=== PATIENT | female | born 1950 | race Caucasian/White ===

== ENCOUNTER → 2021-06-01 | Outpatient (CLI) | payer SELFPAY | END | disposition home or self-care (01) | LOC: LAB SHORT 20:09 | DX: J02.9 Acute pharyngitis, unspecified (principal) | CPT/HCPCS: 87081 ==

== ENCOUNTER 2021-07-16 14:30 | Day surgery (SDC) | payer SELFPAY ==
[2021-07-16] MEDS ORDERED: Aspir 8181 MG PO (14:39)
[2021-07-16] MEDS ORDERED: ALBU90OI INH (14:39)
[2021-07-16] MEDS ORDERED: BREO ELLIPTA 11 EAC1 INH (14:42)
[2021-07-16] MEDS ORDERED: Tessalon200 MG PO (14:43)
[2021-07-16] MEDS ORDERED: Flonase 0.05% N16 GM (14:44)
[2021-07-16] MEDS ORDERED: HYDCHL25 PO (14:44)
[2021-07-16] MEDS ORDERED: METPRE4DP PO (14:44)
[2021-07-16] MEDS ORDERED: METO25ER PO (14:46)
[2021-07-16] MEDS ORDERED: POTA10T PO (14:47)
[2021-07-16] MEDS ORDERED: TIOT18 INH (15:02)
[2021-07-16] MEDS ORDERED: SUCR1 PO (15:18)
[2021-07-16] MEDS ORDERED: AZIT250 PO (15:22)
== END 2021-07-16 17:44 | disposition home or self-care (01) ==
LOC: ATC 14:30
DX: U07.1 COVID-19 (principal); F17.210 Nicotine dependence, cigarettes, uncomplicated; I10 Essential (primary) hypertension; J43.9 Emphysema, unspecified; K21.9 Gastro-esophageal reflux disease without esophagitis
CPT/HCPCS: Q0243

== ENCOUNTER 2021-09-23 04:05 | Inpatient (IN) | payer MEDICARE, OTHER ==
[~2021-09-23] VITALS: Ht 160 cm; Wt 73.3 kg
[~2021-09-23 04:05] MED LIST: ALBU90OI INH; AZIT250 PO; Aspir 8181 MG PO; BREO ELLIPTA 11 EAC1 INH; Flonase 0.05% N16 GM; HYDCHL25 PO; METO25ER PO; METPRE4DP PO; POTA10T PO; SUCR1 PO; TIOT18 INH; Tessalon200 MG PO
[2021-09-23 04:18] LABS: PO2 Arterial 448 mmHg (80-100); pH Blood Arterial 7.27 (7.35-7.45)
[2021-09-23 04:25] LABS: BASOPHILS ABSOLUTE AUTO 0.02 K/mm3 (0.00-0.23); BASOPHILS PERCENT AUTO 0 % (0-2); EOSINOPHILS PERCENT AUTO 0 % (0-6); Hematocrit 44.8 % (33.0-51.0); Hemoglobin 14.3 g/dL (11.5-16.0); IMMATURE GRAN ABSOLUTE AUTO 0.09 K/mm3 (0.00-0.10); IMMATURE GRAN PERCENT AUTO 1 % (0-1); LYMPHOCYTES ABSOLUTE AUTO 1.22 K/mm3 (0.84-5.20); LYMPHOCYTES PERCENT AUTO 10 % (21-46); MONOCYTES ABSOLUTE AUTO 0.84 K/mm3 (0.16-1.47); MONOCYTES PERCENT AUTO 7 % (4-13); Mean Corpuscular HGB 28.9 pg (26.0-34.0); Mean Corpuscular HGB Conc 31.9 g/dL (31.5-36.5); Mean Corpuscular Volume 91 fL (80-100); Mean Platelet Volume 9.5 fL (9.1-12.4); NEUTROPHILS ABSOLUTE AUTO 10.16 K/mm3 (1.96-9.15); NEUTROPHILS PERCENT AUTO 82 % (41-73); Platelet Count 261 K/mm3 (150-400); RDW Coefficient Variation 12.7 % (11.7-14.2); RDW Standard Deviation 41.7 fL (35.1-46.3); Red Blood Cell Count 4.94 M/mm3 (3.80-5.20); White Blood Cell Count 12.33 K/mm3 (4.00-11.30)
[2021-09-23 04:50] LABS: Alanine Aminotransfer (ALT/SGP 64 U/L (12-78); Albumin, Blood 3.6 g/dL (3.4-5.0); Albumin/Globulin Ratio 0.9 (0.8-1.8); Alk Phos 84 U/L (50-136); Anion Gap 8 mmol/L (6-16); Aspartate Aminotrans (AST/SGOT 105 U/L (12-37); Bilirubin, Total 0.5 mg/dL (0.1-1.0); Blood Urea Nitrogen 25 mg/dL (8-24); Bun/Creatinine Ratio 20.2 (12.0-20.0); CO2, Blood 27 mmol/L (21-32); Chloride, Blood 103 mmol/L (98-108); Creatinine, Blood 1.24 mg/dL (0.40-1.00); Glomerular Filtration Rate 43 (60-); Glucose, Blood 170 mg/dL (70-99); Potassium, Blood 3.8 mmol/L (3.5-5.5); Sodium, Blood 138 mmol/L (136-145); Total Protein, Blood 7.6 g/dL (6.4-8.2); Troponin I <0.015 ng/mL (0.000-0.040)
[2021-09-23 05:43] LABS: Source, Urine Clean Catch
[2021-09-23 05:45] LABS: Bilirubin, Urine Neg (Neg); Blood, Urine 3+ (Neg); Glucose Qualitative, Urine Neg (Neg); Ketones, Urine Neg (Neg); Leukocyte Esterase, Urine Neg (Neg); Nitrite, Urine Neg (Neg); Protein, Urine 3+ (Neg); Urobilinogen, Urine NORM (Normal)
[2021-09-23 05:48] LABS: Influenza A, PCR NEGATIVE (NEGATIVE); Influenza B, PCR NEGATIVE (NEGATIVE); Resp Syncytial Virus, PCR NEGATIVE (NEGATIVE); SARS-Cov-2 (COVID-19) PCR, MMC NEGATIVE (NEGATIVE)
[2021-09-23 05:51] LABS: Appearance, Urine Clear (Clear); Color, Urine Yellow (P-Yellow)
[2021-09-23 05:54] LABS: Bacteria Few /hpf; Squamous Epithelial Cells Few /hpf (Few); Transitional Epithelial Cells Few /hpf (0-Rare)
[2021-09-23 05:55] LABS: Renal Epithelial Rare /hpf (0-Rare)
[2021-09-23 05:56] LABS: Hyaline Casts 0-2 /lpf (0-2)
--- NOTE | 2021-09-23 08:30 | NUR ---
PT TO ICU ROOM 12. PT ARRIVED INTUBATED AND SEDATED. VENT SETTINGS AC 20/350/5/30%, PROPOFOL AT 15 MCG/KG/MIN, CARDIZEM GTT @5 MG/HR. PT AFLUTTER WITH HR 140-180'S. PT OPENS EYES SPONTANEOUS, WITHDRAWS FROM PAINFUL AND NOXIOUS STIMULATION, FAILS TO FOLLOW COMMANDS. LUNG SOUNDS WITH INSPIRATORY AND EXPIRATORY WHEEZES. SPUTUM SAMPLE SENT. SMALL AMOUNT OF THICK YELLOW SPUTUM FROM ETT. OGT INSERTED, LOCATION VERIFIED VIA XRAY. GOYAL PATENT AND DRAINING TO GRAVITY. SEE FULL ADMISSION ASSESSMENT.
--- NOTE | 2021-09-23 12:34 | NUR ---
PEEP INCREASED TO [address] HOLLOWAY. PT CURRENTLY NSR WITH HR 83-85, CARDIZEM GTT PLACED ON STANDBY. PT'S GRANDDAUGHTER (ELVIS) UPDATED WITH PTS STATUS AND PLAN OF CARE.
--- NOTE | 2021-09-23 17:22 | NUR ---
SHIFT SUMMARY PT REMAINS INTUBATED AND SEDATED, VENT SETTINGS AC 20/350/14/30% WITH SATS 97%. PROPOFOL @ 15-25 MCG/KG/MIN FOR SEDATION, PT EASILY AGITATED WITH NOXIOUS STIMULI BUT UNABLE TO TOLERATE INCREASE IN PROPOFOL D/T HYPOTENSION. FENTANYL ADDED ADJUNCT TO SEDATION WITH GOOD RESULT. PT GIVEN 1L BOLUS OF LR FOLLOWED BY START OF LR @ 100 MAINTENANCE FLUIDS. LUNG SOUNDS WITH INSPIRATORY/EXPIRATORY WHEEZE BILATERAL UPPER/LOWER LOBES, LUNGS CLEARED THIS AFTERNOON AND ARE CURRENT WHEEZY BILATERAL UPPER LOBES R>L WITH DIM BASES BILATERALLY. SMALL AMOUNT OF THICK YELLOW SPUTUM FROM ETT, SAMPLE SENT TO LAB. CARDIZEM GTT OFF SINCE NOON PT CONVERTED TO NSR WITH HR 70-80'S. PT'S GRANDDAUGHTER AT BEDSIDE THIS AFTERNOON, UPDATED WITH STATUS AND PLAN OF CARE. WILL REPORT TO ONCOMING NURSE.
--- NOTE | 2021-09-23 19:44 | NUR ---
ASSUMED CARE OF PT AT 1915. REPORT RECEIVED AT BEDSIDE. PT PRESENTS IN BED. INTUBATED. AC 20, Tv 350, PEEP 14, FIO2 30 PERCENT. SOMEWHAT FAIR TO POOR VENT TOLERANCE WHICH RESPONDS WELL TO 25 MCG'S FENTANYL. PT CURRENTLY RESTING AND TOLERANT OF VENT. WILL REVIEW CHART AND PLAN OF CARE FOR THIS PT.
--- NOTE | 2021-09-23 22:35 | NUR ---
PT REQUIRED TO HAVE PROPOFOL INCREASED TO 25 MCG'S/KG/MIN. PT AWAKENS QUICKLY WITH ANY STIMULI AND BEGINS TO FIGHT THE VENT. ADMINSITERED 25 MCG'S FENTANYL WITH GOOD RESULTS. PT CURRENTLY RESTING IN BED. WILL CONTINUE TO MONITOR.
--- NOTE | 2021-09-24 03:44 | NUR ---
PT HAS BEEN TOLERATING VENT BETTER WITH INCREASE IN PROPOFOL TO 35 MCG'S/KG/MIN. PT HAS MAINTAINED BLOOD PRESSURES WITH MAP > 60-65. PT IN NO APPARENT DISTRESS. FIO2 30 PERCENT.
[2021-09-24 05:05] LABS: BASOPHILS ABSOLUTE AUTO 0.01 K/mm3 (0.00-0.23); BASOPHILS PERCENT AUTO 0 % (0-2); EOSINOPHILS PERCENT AUTO 0 % (0-6); Hematocrit 39.4 % (33.0-51.0); Hemoglobin 12.8 g/dL (11.5-16.0); IMMATURE GRAN ABSOLUTE AUTO 0.04 K/mm3 (0.00-0.10); IMMATURE GRAN PERCENT AUTO 0 % (0-1); LYMPHOCYTES ABSOLUTE AUTO 0.25 K/mm3 (0.84-5.20); LYMPHOCYTES PERCENT AUTO 2 % (21-46); MONOCYTES ABSOLUTE AUTO 0.24 K/mm3 (0.16-1.47); MONOCYTES PERCENT AUTO 2 % (4-13); Mean Corpuscular HGB Conc 32.5 g/dL (31.5-36.5); Mean Corpuscular Volume 89 fL (80-100); Mean Platelet Volume 9.8 fL (9.1-12.4); NEUTROPHILS ABSOLUTE AUTO 10.22 K/mm3 (1.96-9.15); NEUTROPHILS PERCENT AUTO 95 % (41-73); Platelet Count 159 K/mm3 (150-400); RDW Coefficient Variation 12.7 % (11.7-14.2); RDW Standard Deviation 41.9 fL (35.1-46.3); Red Blood Cell Count 4.42 M/mm3 (3.80-5.20); White Blood Cell Count 10.76 K/mm3 (4.00-11.30)
[2021-09-24 05:18] LABS: PCO2 Arterial 42.3 mmHg (35-45); PO2 Arterial 71.7 mmHg (80-100)
--- NOTE | 2021-09-24 05:40 | NUR ---
HAVE BEEN ABLE TO TITRATE PROPOFOL TO 35 MCG'S/KG/MIN. PT HAS BEEN ABLE TO MAINTAIN BLOOD PRESSURES WITH MAP > 60. PT HAS BEEN ABLE TO TOLERATE VENT BETTER WITH IMPROVED SEDATION. HAVE MEDICATED PT WITH FENTANYL 25 MCG'S WITH VENT INTOLERANCE WITH GOOD RESULTS. WILL CONTINUE TO MONITOR PT, AND WILL REPORT OFF TO ONCOMING RN.
[2021-09-24 06:09] LABS: Albumin, Blood 3.1 g/dL (3.4-5.0); Bilirubin, Total 0.8 mg/dL (0.1-1.0); Bun/Creatinine Ratio 23.8 (12.0-20.0); Calcium, Blood 8.6 mg/dL (8.5-10.1); Creatinine, Blood 1.26 mg/dL (0.40-1.00); Globulin, Blood 3.2 g/dL (2.2-4.0); Magnesium, Blood 1.9 mg/dL (1.6-2.4); Phosphorus, Blood 3.3 mg/dL (2.5-4.9); Total Protein, Blood 6.3 g/dL (6.4-8.2)
--- NOTE | 2021-09-24 10:45 | NUR ---
DR SHEPARD SPOKE TO DR ATKINSON RE CARDIOLOGY CONSULT AND PT CONDITION. DR ATKINSON STATED HE WOULD SEE THE PT IN THE AM.
--- NOTE | 2021-09-24 12:15 | NUR ---
DR. ALEMAN AWARE OF PATIENT HIGH HEART RATE, REINICIATED THE CARDIZEM IV. DR. ALEMAN CURRENTLY TALKING TO PATIENT FAMILY (GRANDDAUGHTER) FOR UPDATES
--- NOTE | 2021-09-24 13:48 | NUR ---
TUBE FEEDS STARTED AT 1315 VITAL HP AT 10ML/HR
--- NOTE | 2021-09-24 22:28 | NUR ---
NOTIFIED DR SHEPARD OF EKG CHANGES
--- NOTE | 2021-09-24 22:38 | NUR ---
DR HSEPARD AT BEDSIDE
[2021-09-25 03:20] LABS: BASOPHILS ABSOLUTE AUTO 0.01 K/mm3 (0.00-0.23); BASOPHILS PERCENT AUTO 0 % (0-2); EOSINOPHILS PERCENT AUTO 0 % (0-6); Hematocrit 38.4 % (33.0-51.0); Hemoglobin 12.8 g/dL (11.5-16.0); IMMATURE GRAN ABSOLUTE AUTO 0.09 K/mm3 (0.00-0.10); IMMATURE GRAN PERCENT AUTO 1 % (0-1); LYMPHOCYTES ABSOLUTE AUTO 0.15 K/mm3 (0.84-5.20); LYMPHOCYTES PERCENT AUTO 1 % (21-46); MONOCYTES ABSOLUTE AUTO 0.39 K/mm3 (0.16-1.47); MONOCYTES PERCENT AUTO 3 % (4-13); Mean Corpuscular HGB 29.4 pg (26.0-34.0); Mean Corpuscular HGB Conc 33.3 g/dL (31.5-36.5); Mean Corpuscular Volume 88 fL (80-100); Mean Platelet Volume 9.8 fL (9.1-12.4); NEUTROPHILS ABSOLUTE AUTO 14.15 K/mm3 (1.96-9.15); NEUTROPHILS PERCENT AUTO 96 % (41-73); Platelet Count 194 K/mm3 (150-400); RDW Coefficient Variation 12.8 % (11.7-14.2); RDW Standard Deviation 41.6 fL (35.1-46.3); Red Blood Cell Count 4.36 M/mm3 (3.80-5.20); White Blood Cell Count 14.79 K/mm3 (4.00-11.30)
[2021-09-25 03:42] LABS: Albumin, Blood 2.6 g/dL (3.4-5.0); Anion Gap 6 mmol/L (6-16); Blood Urea Nitrogen 32 mg/dL (8-24); Bun/Creatinine Ratio 31.1 (12.0-20.0); CO2, Blood 27 mmol/L (21-32); Calcium, Blood 8.5 mg/dL (8.5-10.1); Chloride, Blood 105 mmol/L (98-108); Creatinine, Blood 1.03 mg/dL (0.40-1.00); Glomerular Filtration Rate 53 (60-); Glucose, Blood 201 mg/dL (70-99); Phosphorus, Blood 2.5 mg/dL (2.5-4.9); Potassium, Blood 3.4 mmol/L (3.5-5.5); Sodium, Blood 138 mmol/L (136-145)
--- NOTE | 2021-09-25 06:40 | NUR ---
SHIFT SUMMERY PT FOUND WITH EKG CHANGES OVERNIGHT. DR SHEPARD NOTIFIED AND CAME TO BEDSIDE FOR PT EVALUATION. CARDIOLOGY CONSULTED, DR SHEPARD SPOKE WITH DR ATKINSON REGARDING PT. DR ATKINSON STATED HE WOULD SEE PT THIS MORNING. TROPONINS DRAWN TO TREND BUT ARE DECREASING. LEVOPHED HAS BEEN OFF SINCE 3AM, WITH PT MAINTAINING MAPS <65. NO ACUTE DISTRESS NOTED THIS SHIFT.
--- NOTE | 2021-09-25 18:34 | NUR ---
PT STABLE, REMAINS INTUBATED AND SEDATED. NO CHANGES ON THE VENTILATOR. PT WAS BATHE, LINENS CHANGED AND PROVIDED SKIN CARE. UPDATED FAMILY PT WAS ABLE TO REMAIN OFF RESTRAINTS THROUGHTOUT THE SHIFT.
--- NOTE | 2021-09-25 19:00 | NUR ---
ASSUMED CARE ASSUMED CARE OF PATIENT. REMAINS INTUBATED- AC/VCA 20/350/PEEP 14/ FIO2 30%. RR 20. SEDATED WITH PROPOFOL AT 30MCG/KG/MIN AND VERSED GTT AT 4MG/HR. MONITOR SHOWS NSR, RATE 70s. OCCASIONAL PVCs NOTED. BP STABLE. OG WITH VITAL HIGH PROTEIN AT GOAL RATE OF 20CC/HR. 30CC H20 FLUSHES Q4H. GOYAL PATENT AND DRAINING TO GRAVITY. LR INFUSING AT 75CC/HR PER ORDER. SEE SHIFT ASSESSMENT FOR FULL ASSESSMENT.
[2021-09-26 05:03] LABS: BASOPHILS ABSOLUTE AUTO 0.01 K/mm3 (0.00-0.23); BASOPHILS PERCENT AUTO 0 % (0-2); EOSINOPHILS PERCENT AUTO 0 % (0-6); Hematocrit 37.2 % (33.0-51.0); IMMATURE GRAN ABSOLUTE AUTO 0.07 K/mm3 (0.00-0.10); IMMATURE GRAN PERCENT AUTO 1 % (0-1); LYMPHOCYTES ABSOLUTE AUTO 0.17 K/mm3 (0.84-5.20); LYMPHOCYTES PERCENT AUTO 2 % (21-46); MONOCYTES PERCENT AUTO 2 % (4-13); Mean Corpuscular HGB 28.8 pg (26.0-34.0); Mean Corpuscular HGB Conc 32.3 g/dL (31.5-36.5); Mean Corpuscular Volume 89 fL (80-100); Mean Platelet Volume 10.2 fL (9.1-12.4); NEUTROPHILS ABSOLUTE AUTO 8.48 K/mm3 (1.96-9.15); NEUTROPHILS PERCENT AUTO 95 % (41-73); Platelet Count 131 K/mm3 (150-400); RDW Coefficient Variation 12.9 % (11.7-14.2); RDW Standard Deviation 42.5 fL (35.1-46.3); Red Blood Cell Count 4.17 M/mm3 (3.80-5.20); White Blood Cell Count 8.93 K/mm3 (4.00-11.30)
[2021-09-26 05:11] LABS: Albumin, Blood 2.4 g/dL (3.4-5.0); Anion Gap 6 mmol/L (6-16); Blood Urea Nitrogen 37 mg/dL (8-24); Bun/Creatinine Ratio 37.9 (12.0-20.0); CO2, Blood 30 mmol/L (21-32); Calcium, Blood 8.4 mg/dL (8.5-10.1); Chloride, Blood 104 mmol/L (98-108); Creatinine, Blood 0.98 mg/dL (0.40-1.00); Glomerular Filtration Rate 56 (60-); Glucose, Blood 183 mg/dL (70-99); Potassium, Blood 3.8 mmol/L (3.5-5.5); Sodium, Blood 140 mmol/L (136-145)
--- NOTE | 2021-09-26 05:56 | NUR ---
SHIFT SUMMARY NO ACUTE CHANGES DURING SHIFT. REMAINS INTUBATED- VENT SETTINGS STILL AC/VCA 20/350/PEEP 14/FIO2 30%. RR 20-23. SEDATED WITH PROPOFOL BETWEEN 25-35MCG/KG/MIN- NOW INFUSING AT 25MCG/KG/MIN. VERSED OFF AT THIS TIME. NO SPONTANEOUS MOVEMENT NOTED. CONTINUES TO WITHDRAW TO NOXIOUS STIMULI. AND CONTINUES WITH MINIMAL COUGH/GAG. ANNABELLE, 3-4MM. VSS. HR 70s-90s, NSR WITH OCCASIONAL PVCs. AFEBRILE. OG WITH VITAL HIGH PROTEIN AT GOAL RATE OF 20CC/HR. 30CC H20 FLUSHES Q4H. RESIDUALS <10CC T/O NOC. GOYAL PATENT AND DRAINING TO GRAVITY. LR CONTINUES AT 75CC/HR PER ORDER. WILL REPORT TO ONCOMING RN WHEN AVAILABLE.
--- NOTE | 2021-09-26 17:27 | NUR ---
PT REMAINS INTUBATED AND SEDATED WITH PROPOFOL AT 35MCG. NEW VENTILATOR SETTING, PEEP AT 5, NO DISTRESS. FAMILY UODATED URINE OUTPUT 500
--- NOTE | 2021-09-26 19:30 | NUR ---
ASSUMPTION OF CARE: REPORT GIVEN BY CARLOS RUBY. PT INTUBATED W/ETT INTACT AND PATENT TO VENT W/SETTINGS OF 30% FIO2, PEEP DECREASED TO 5 TODAY WITH PT TOLERATING WELL AT THIS TIME, RR OF 20. CARDIZEM GTT INFUSING AT 15/PROPOFOL AT 35. LUNG SOUNDS WITH WHEEZING ACROSS ALL LUNG MADISON. HR IRREGULAR BIT CONTROLLED AT TIME OF ASSESSMENT. GOYAL CATH INTACT PATENT AND DRAINING YELLOW URINE AT TIME OF ASSESSMENT. NO ACUTE S/S OF DISTRESS NOTED AT THIS TIME.
[2021-09-27 03:40] LABS: BASOPHILS PERCENT AUTO 0 % (0-2); EOSINOPHILS PERCENT AUTO 0 % (0-6); Hematocrit 36.5 % (33.0-51.0); Hemoglobin 11.6 g/dL (11.5-16.0); IMMATURE GRAN ABSOLUTE AUTO 0.09 K/mm3 (0.00-0.10); IMMATURE GRAN PERCENT AUTO 1 % (0-1); LYMPHOCYTES ABSOLUTE AUTO 0.22 K/mm3 (0.84-5.20); LYMPHOCYTES PERCENT AUTO 3 % (21-46); MONOCYTES ABSOLUTE AUTO 0.21 K/mm3 (0.16-1.47); MONOCYTES PERCENT AUTO 2 % (4-13); Mean Corpuscular HGB 28.6 pg (26.0-34.0); Mean Corpuscular HGB Conc 31.8 g/dL (31.5-36.5); Mean Corpuscular Volume 90 fL (80-100); Mean Platelet Volume 9.8 fL (9.1-12.4); NEUTROPHILS ABSOLUTE AUTO 8.27 K/mm3 (1.96-9.15); NEUTROPHILS PERCENT AUTO 94 % (41-73); Platelet Count 150 K/mm3 (150-400); RDW Coefficient Variation 12.9 % (11.7-14.2); RDW Standard Deviation 42.6 fL (35.1-46.3); Red Blood Cell Count 4.06 M/mm3 (3.80-5.20); White Blood Cell Count 8.79 K/mm3 (4.00-11.30)
[2021-09-27 04:02] LABS: Anion Gap 4 mmol/L (6-16); Blood Urea Nitrogen 46 mg/dL (8-24); Bun/Creatinine Ratio 46.7 (12.0-20.0); CO2, Blood 30 mmol/L (21-32); Calcium, Blood 8.2 mg/dL (8.5-10.1); Chloride, Blood 105 mmol/L (98-108); Creatinine, Blood 0.99 mg/dL (0.40-1.00); Glomerular Filtration Rate 55 (60-); Glucose, Blood 190 mg/dL (70-99); Phosphorus, Blood 2.9 mg/dL (2.5-4.9); Potassium, Blood 4.4 mmol/L (3.5-5.5); Sodium, Blood 139 mmol/L (136-145)
--- NOTE | 2021-09-27 06:33 | NUR ---
SHIFT SUMMERY NO ACUTE CHANGES OVERNIGHT
--- NOTE | 2021-09-27 18:20 | NUR ---
PT REMAINS INTUBATED AND SEDATED WITH PROPOFOL AT 15MCG AND PRECEDEX 1.[address] RUBIO CONTINUE WEAN OFF PROPOFOL IN ORDER TO STAY JUST WITH PRECEDEX. PER DR. RUBIO REQUESTED SEDATION VACATION BUT PATIENT DIDNT TOLERATE AND WAS PLACED AGAIN ON PROPOFOL
--- NOTE | 2021-09-27 19:40 | NUR ---
ASSESSMENT/ASSUMED CARE PT INTUBATED AND ON [facility] VENT. SEDATED WITH PROPOFOL AND PRECEDEX. LUNGS CLEAR BUT DECREASED THROUGHOUT. VENT SETTINGS AC/VC 20/350/5/30%. RT SUCTIONED SMALL AMT WHITE SERECTIONS VIA ET TUBE. HEART RATE IRREGULAR-AFIB/AFLUTTER. BP STABLE. IV 20G TO RIGHT FOREARM AND POWER GLIDE TO LEFT UPPER ARM, SITES CLEAR. GOYAL CATH PATENT DRAINING CLEAR YELLOW URINE. BT+ ABD SOFT. OG WITH TUBE FEED VITAL HP AT GOAL RATE OF 20 ML/HR, WATER 30 ML Q4HR. RESIDUAL ZERO. PT NONRESPONSIVE EXCEPT TO PAINFUL STIMULI. REPOSITIONED AND ORAL CARE DONE. INCONT SMALL BROWN STOOL.
[2021-09-28 03:41] LABS: BASOPHILS ABSOLUTE AUTO 0.01 K/mm3 (0.00-0.23); BASOPHILS PERCENT AUTO 0 % (0-2); EOSINOPHILS PERCENT AUTO 0 % (0-6); Hematocrit 39.6 % (33.0-51.0); IMMATURE GRAN ABSOLUTE AUTO 0.08 K/mm3 (0.00-0.10); IMMATURE GRAN PERCENT AUTO 1 % (0-1); LYMPHOCYTES ABSOLUTE AUTO 0.27 K/mm3 (0.84-5.20); LYMPHOCYTES PERCENT AUTO 4 % (21-46); MONOCYTES ABSOLUTE AUTO 0.21 K/mm3 (0.16-1.47); MONOCYTES PERCENT AUTO 3 % (4-13); Mean Corpuscular HGB 28.8 pg (26.0-34.0); Mean Corpuscular HGB Conc 32.8 g/dL (31.5-36.5); Mean Corpuscular Volume 88 fL (80-100); Mean Platelet Volume 9.9 fL (9.1-12.4); NEUTROPHILS ABSOLUTE AUTO 6.95 K/mm3 (1.96-9.15); NEUTROPHILS PERCENT AUTO 92 % (41-73); Platelet Count 122 K/mm3 (150-400); RDW Coefficient Variation 12.7 % (11.7-14.2); RDW Standard Deviation 41.3 fL (35.1-46.3); Red Blood Cell Count 4.51 M/mm3 (3.80-5.20); White Blood Cell Count 7.52 K/mm3 (4.00-11.30)
[2021-09-28 03:59] LABS: Anion Gap 6 mmol/L (6-16); Blood Urea Nitrogen 55 mg/dL (8-24); Bun/Creatinine Ratio 60.8 (12.0-20.0); CO2, Blood 35 mmol/L (21-32); Calcium, Blood 8.4 mg/dL (8.5-10.1); Chloride, Blood 96 mmol/L (98-108); Glomerular Filtration Rate >60 (60-); Glucose, Blood 220 mg/dL (70-99); Phosphorus, Blood 3.9 mg/dL (2.5-4.9); Potassium, Blood 3.6 mmol/L (3.5-5.5); Sodium, Blood 137 mmol/L (136-145)
--- NOTE | 2021-09-28 05:59 | NUR ---
SHIFT SUMMARY PT CONT INTUBATED AND ON THE VENT. NO VENT CHANGES DURING THE NIGHT. VENT SETTINGS AC/VC 20/350/5/30%. LUNGS REMAIN CLEAR BUT DECREASED. HEART RATE CONT IRREGULAR-AFIB/AFLUTTER RATE OF 90-130'S. BP STABLE AT THIS TIME. PT HAS RECEIVED LASIX 20MG IV AT MIDNIGHT AND BP HAS BEEN TRENDING DOWN, WILL CONT TO MONITOR TO KEEP MAP GREATER THAN 65. BT+ ABD SOFT. OG WITH TUBE FEED VITAL HP AT GOAL RATE 20 ML/HR, WATER 30 ML Q4HR. RESIDUAL HAVE BEEN ZERO. IV TO RIGHT FOREARM SALINE LOCKED. POWER GLIDE TO LEFT UPPER ARM, DRSG INTACT. PROPOFOL AT 10 MCQ/KG/MIN AND PRECEDEX TITRATE DOWN FROM 1.4 MCQ TO 1.2 MCQ/KG/MIN. GOYAL CATH PATENT DRAINING PALE YELLOW URINE. PT INCONT OF SMALL SOFT BROWN STOOL. PT TURNED Q2HRS. PT ONLY RESPONDING TO PAINFUL STIMULI. REPORT TO ON COMING NURSE
--- NOTE | 2021-09-28 08:00 | NUR ---
ASSUMED CARE RECEIVED REPORT FROM FLORI LANDERS AT 0700. PT IS INTUBATED AND SEDATED. PROPOFOL @ 10MCG/KG/MIN, PRECEDEX AT 1.2MCG/KG/HR. SHE GRIMACED WITH ORAL CARE, OTHERWISE NO PURPOSEFUL MOVEMENTS AND UNRESPONSIVE. UNRESTRAINED AT THIS TIME. VENT SETTINGS AC/VC 20/350/5/30%, SPO2 98%. LUNGS CLEAR, BUT DIMINISHED T/O. HR IS AFIB, RATE 90-130'S, IRREGULAR. BP STABLE AT THIS TIME. OG WITH VITAL HP AT GOAL OF 20ML/HR, Q4 30ML FLUSH, RESIDUAL <5ML. GOYAL DRAINING TO GRAVITY, LIGHT YELLOW, CLEAR URINE. SKIN OVERALL C/D/I. ORDERS REVIEWED AND WILL TREAT PRESCRIBED.
--- NOTE | 2021-09-28 12:24 | NUR ---
SPONTANEOUS TRIAL/EXTUBATION AT 1030, PT PLACED ON SPONTANEOUS VENT MODE. RR WAS 15-22, WITH TIDAL VOLUMES IN 400'S. PRECEDEX AND PROPOFOL REMAINED ON PREVIOUSLY CHARTED. 1055: TUBE FEED TURNED OFF AND DISCONNECTED. AT 1105, PROPOFOL PLACED ON SB AND PRECEDEX TURNED DOWN TO 1.0MCG/KG/HR. 1135: PT EXTUBATED AND PLACED ON 4L NC, THEN TITRATED DOWN TO 2L, SPO2 >96%. 1137: PRECEDEX TURNED DOWN TO 0.2MCG/KG/HR 1141: 20MG OF DILTIAZEM GIVEN IV PUSH FOR HR IN 160-180'S. RATE DECREASED TO 90-100'S, AFIB. 1150: CPAP AT 10 TO ROOM AIR, STARTED PT NOTED TO HAVE INCREASED WORK OF BREATHING AND USING ACCESSORY MUSCLES. DUONEB TREATMENTS COMPLETED X2 LUNGS ARE VERY TIGHT AND SHALLOW RESPIRATIONS. PT BECOMING MORE ALERT AND AGITATED, PRECEDEX TITRATED BACK UP TO 1.4 SHE IS TRYING TO SIT UP, SHAKING HEAD, AND PULLING AT LINES. SHE IS CURRENTLY RESTING WITH CPAP IN PLACE AND RESTRAINTS REMAIN OFF AT THIS TIME.
--- NOTE | 2021-09-28 15:52 | NUR ---
REMOVED CPAP AT 1505. PT NOW ON 1L O2 NC, SPO2 94%. WORK OF BREATHING HAS IMPROVED AND APPEARS LESS LABORED, NO STERNAL RETRACTIONS OR ACCESSORY MUSCLE USE. SHE IS ABLE TO NOD HER HEAD YES OR NO TO QUESTIONS. PRECEDEX REMAINS ON AT 1.0MCG/KG/HR. HR CONTINUES AFIB/AFLUTTER, RATE BETTER CONTROLLED IN 90-100'S.
--- NOTE | 2021-09-28 18:25 | NUR ---
PT HAS SLOWLY IMPROVED MENTATION T/O THE DAY AFTER EXTUBATION. SHE IS ORIENTED TO SELF ONLY. ABLE TO NOD YES/NO TO QUESTIONS, DENIES PAIN. PRECEDEX CONTINUES AT 1.0MCG/KG/HR. SHE IS TRYING TO SPEAK, BUT VERY DIFFICULT TO UNDERSTAND. SHE REMIANS UNRESTRAINED SHE IS VERY WEAK. SHE REMAINED AFEBRILE. SHE IS ON 1L NC, SPO2 94-95%. WOB HAS IMPROVED AND RR 14. HR REMAINED AFIB/AFLUTTER, RATE 90-110'S AFTER 20MG DILTIAZEM PUSH. BP STABLE, MAP >65. SHE IS CURRENTLY NPO, ASKS FOR WATER FREQUENTLY WHEN AWAKE, FREQUENT ORAL CARE DONE T/O SHIFT. GOYAL PATENT, DRAINING LIGHT YELLOW CLEAR URINE, INCREASED OUTPUT D/T LASIX. FREQUENT SHIFTING OF PT'S WEIGHT DONE TO KEEP HER CALM. WILL REPORT TO ONCOMING SHIFT WHEN AVAILABLE.
[2021-09-29 03:24] LABS: BASOPHILS ABSOLUTE AUTO 0.01 K/mm3 (0.00-0.23); BASOPHILS PERCENT AUTO 0 % (0-2); EOSINOPHILS PERCENT AUTO 0 % (0-6); Hematocrit 39.2 % (33.0-51.0); IMMATURE GRAN ABSOLUTE AUTO 0.09 K/mm3 (0.00-0.10); IMMATURE GRAN PERCENT AUTO 1 % (0-1); LYMPHOCYTES ABSOLUTE AUTO 0.36 K/mm3 (0.84-5.20); LYMPHOCYTES PERCENT AUTO 4 % (21-46); MONOCYTES ABSOLUTE AUTO 0.33 K/mm3 (0.16-1.47); MONOCYTES PERCENT AUTO 4 % (4-13); Mean Corpuscular HGB 28.7 pg (26.0-34.0); Mean Corpuscular HGB Conc 33.2 g/dL (31.5-36.5); Mean Corpuscular Volume 87 fL (80-100); Mean Platelet Volume 9.4 fL (9.1-12.4); NEUTROPHILS ABSOLUTE AUTO 7.62 K/mm3 (1.96-9.15); NEUTROPHILS PERCENT AUTO 91 % (41-73); Platelet Count 124 K/mm3 (150-400); RDW Coefficient Variation 12.5 % (11.7-14.2); RDW Standard Deviation 39.7 fL (35.1-46.3); Red Blood Cell Count 4.53 M/mm3 (3.80-5.20); White Blood Cell Count 8.41 K/mm3 (4.00-11.30)
[2021-09-29 03:36] LABS: Anion Gap 5 mmol/L (6-16); Blood Urea Nitrogen 56 mg/dL (8-24); Bun/Creatinine Ratio 69.4 (12.0-20.0); CO2, Blood 39 mmol/L (21-32); Calcium, Blood 8.7 mg/dL (8.5-10.1); Chloride, Blood 96 mmol/L (98-108); Creatinine, Blood 0.81 mg/dL (0.40-1.00); Glomerular Filtration Rate >60 (60-); Glucose, Blood 164 mg/dL (70-99); Potassium, Blood 3.9 mmol/L (3.5-5.5); Sodium, Blood 140 mmol/L (136-145)
--- NOTE | 2021-09-29 06:19 | NUR ---
END OF SHIFT SUMAMRY: PATIENT REMAINS A/O TO SELF. ROOM AIR. NO SOB OR INCREASED WORK OF BREATHING OVERNIGHT. SHE HAS BEEN UNABLE TO FOLLOW SIMPLE COMMANDS OR REALLY MOVE EXTREMITIES HERSELF. PRECEDEX CONTINUES TO INFUSE. WILL SAY "ICE" SOMETIMES AND SHE IS HAPPY WITH SWABS OF WATER AT THIS TIME DUE TO NPO STATUS. GOOD URINE OUTPUT. Q2 TURNS.
--- NOTE | 2021-09-29 08:42 | NUR ---
ASSUMED CARE RECEIVED REPORT FROM FLORI DIAZ AT 0700. PT SEDATED ON PRECEDEX AT 1.0MCG/KG/HR. SHE IS ALERT AND ORIENTED TO SELF ONLY. ABLE TO NOD YES/NO AND FOLLOW SIMPLE COMMANDS. SPEECH IS VERY DIFFICULT TO UNDERSTAND. LUNGS ARE COARSE, TRIED TO ENCOURAGE COUGHING, BUT EFFORT IS WEAK. ON RA SHE STARTED TO DESAT IN THE UPPER 80'S, 1L NC PLACED AND CURRENTLY SATTING 95%. SPEECH EVAL ORDERED, BUT WILL ATTEMPT WHEN PRECEDEX IS LOWERED AND PT IS BETTER ABLE TO PARTICIPATE. HR IS AFIB/AFLUTTER, RATE 100-130'S. BP STABLE. GOYAL IN PLACE, DRAINING LIGHT YELLOW URINE TO GRAVITY. ORDERS REVIEWED AND WILL TREAT PRESCRIBED.
--- NOTE | 2021-09-29 12:28 | NUR ---
ANXIETY/RESPIRATORY DISTRESS AROUND 1100, PT WAS NOTED TO HAVE INCREASED ANXIETY AND AGITATION, STATING "I NEED OXYGEN," "I CAN'T BREATHE," AND "I NEED A FAN." SHE WAS ATTEMPTING TO SIT UP IN BED AND TRI-POD. USING ACCESSORY MUSCLES AND NOTED TO HAVE DYSPNEA & SOB, RR IN 20-30'S. SOB. O2 AT 2L NC, AND ALBUTEROL NEBULIZER TREATMENTS DONE X2. PRECEDEX RESTARTED AND DR. RUBIO NOTIFIED AND CAME TO BEDSIDE. ORDERS GIVEN FOR OLANZAPINE 5MG ONE TIME AND OK TO KEEP PRECEDEX ON. BED BATH WAS GIVEN, MEPILEX PLACED ON COCCYX FOR REDNESS/EXCORIATION. SHE IS CURRENTLY RESTING WELL, SPO2 98% ON 2L NC, RR 14. HR CONTINUES AFIB/AFLUTTER, RATE BETTER CONTROLLED AFTER 20MG DILTIAZEM IV PUSH GIVEN, RATE 100-120'S. BP NORMOTENSIVE AND STABLE.
--- NOTE | 2021-09-29 13:08 | NUR ---
DR. RUBIO TO PT BEDSIDE. ORDERS GIVEN TO START CLINAMIX 40ML/HR, STOP PRECEDEX, AND START OLANZIPINE 5MG IM Q6H PRN
--- NOTE | 2021-09-29 16:45 | NUR ---
ANXIETY/RESPIRATORY DISTRESS AROUND 1400, PT WAS NOTED TO BECOMING VERY ANXIOUS AND AGITATED AGAIN. LUNGS ARE COARSE WITH EXPIRATORY WHEEZE. PRECEDEX WAS RESTARTED PREVIOUSLY CHARTED. RT TO BEDSIDE AND ALBUTEROL NEB TREATMENT X2 DONE. CPAP PLACED WHEN TREATMENTS COMPLETED, SETTING OF 10 & 25%. PT ALSO WITH HR IN 160-180'S, AND DR. RUBIO TO BEDSIDE. ORDERS GIVEN FOR 20MG DILTIAZEM IV PUSH, OLANZAPINE 10MG IM, AND FENTANYL GIVEN SEDATION ADJUNCT. ORDERS ALSO GIVEN FOR DOBHOFF PLACEMENT TO START PO METOPROLOL AND OLANZIPINE IN ATTEMPT TO WEAN OFF PRECEDEX. CPAP EVENTUALLY CHANGED TO BIPAP 10/8, 25%, AND KEPT ON FOR ABOUT 1 HOUR. PT CURRENTLY RESTING WITH 2L O2 NC, SPO2 96-98%, LUNG SOUNDS CONTINUE WITH EXP. WHEEZE, BUT IMPROVED. HR IN 100-130'S. ANXIETY IMPROVED, AND PT'S ELVIS GREGORIO AT BEDSIDE.
--- NOTE | 2021-09-29 18:39 | NUR ---
PT RESTARTED ON PRECEDEX PREVIOUSLY CHARTED R/T INCREASED AGITATION AND WOB. LUNGS ARE VERY TIGHT WITH EXP. WHEEZE. SHE IS OCCASIONALLY ABLE TO COUGH UP THICK, RUST/BROWN COLORED SPUTUM. SINCE METOPROLOL, HR IS AFIB WITH RATE BETTER CONTROLLED IN 100-120'S. BP STARTING TO BECOME HYPERTENSIVE, BUT APPEARS TO BE RELATED TO AGITATION AND RESPIRATORY DISTRESS. DOBHOFF REMAINS IN PLACE, 55CM. GOYAL PATENT, DRAINING YELLOW URINE WITH SEDIMENT. SHE CONTINUES TO BE ABLE TO OPEN EYES, EVEN WHEN ON PRECEDEX, AND ABLE TO FOLLOW SIMPLE VERBAL COMMANDS. CALL PLACED TO RT FOR BREATHING TREATMENT AND POSSIBLE CPAP. WILL REPORT TO ONCOMING SHIFT.
[2021-09-30 05:57] LABS: BASOPHILS ABSOLUTE AUTO 0.02 K/mm3 (0.00-0.23); BASOPHILS PERCENT AUTO 0 % (0-2); EOSINOPHILS PERCENT AUTO 0 % (0-6); Hematocrit 39.3 % (33.0-51.0); Hemoglobin 12.5 g/dL (11.5-16.0); IMMATURE GRAN ABSOLUTE AUTO 0.09 K/mm3 (0.00-0.10); IMMATURE GRAN PERCENT AUTO 1 % (0-1); LYMPHOCYTES ABSOLUTE AUTO 0.31 K/mm3 (0.84-5.20); LYMPHOCYTES PERCENT AUTO 4 % (21-46); MONOCYTES ABSOLUTE AUTO 0.27 K/mm3 (0.16-1.47); MONOCYTES PERCENT AUTO 3 % (4-13); Mean Corpuscular HGB 28.9 pg (26.0-34.0); Mean Corpuscular HGB Conc 31.8 g/dL (31.5-36.5); Mean Corpuscular Volume 91 fL (80-100); Mean Platelet Volume 10.3 fL (9.1-12.4); NEUTROPHILS ABSOLUTE AUTO 7.28 K/mm3 (1.96-9.15); NEUTROPHILS PERCENT AUTO 91 % (41-73); Platelet Count 137 K/mm3 (150-400); RDW Coefficient Variation 12.6 % (11.7-14.2); Red Blood Cell Count 4.32 M/mm3 (3.80-5.20); White Blood Cell Count 7.97 K/mm3 (4.00-11.30)
[2021-09-30 06:04] LABS: Anion Gap 5 mmol/L (6-16); Blood Urea Nitrogen 53 mg/dL (8-24); Bun/Creatinine Ratio 67.7 (12.0-20.0); CO2, Blood 35 mmol/L (21-32); Chloride, Blood 100 mmol/L (98-108); Creatinine, Blood 0.78 mg/dL (0.40-1.00); Glomerular Filtration Rate >60 (60-); Glucose, Blood 156 mg/dL (70-99); Phosphorus, Blood 3.8 mg/dL (2.5-4.9); Potassium, Blood 4.5 mmol/L (3.5-5.5); Sodium, Blood 140 mmol/L (136-145)
--- NOTE | 2021-09-30 06:16 | NUR ---
END OF SHIFT SUMMARY: PATIENT HAS BEEN A/O TO SELF AND PLACE AT TIMES BUT OTHERWISE HAS MOSTLY SLEPT TONIGHT. SHE REMAINS ON PRECEDEX AT 0.6MCG/KG/MIN. SHE YELLS OUT AT TIMES FOR HELP BUT HAS BEEN PLEASANTLY RE-DIRECTABLE. Q2 TURNS. NO PRN MEDICATION GIVEN TONIGHT. SHE REMAINS IN AFIB BUT SEEMS TO BE BETTER CONTROLLED THAN DURING DAYSHIFT. HR 80-120S. BP STABLE. ROOM AIR. DOBHOFF IN PLACE FOR MEDS. CLINIMIX INFUSING. WILL CONTINUE TO TRY AND WEAN PRECEDEX DOWN.
--- NOTE | 2021-09-30 08:51 | NUR ---
ASSUMED PT CARE THIS AM. PT WAS VERY SLEEPY AND DIFFICULT TO ROUSE AT 0700, PRECEDEX GTT TITRATED DOWN. WITHIN 30 MIN PT AWAKE, RESTLESS, MUMBLES. PT ABLE TO CORRECTLY ANSWER HER NAME, THAT SHE IS AT HOSPITAL, AND THAT YEAR IS 2020. PT DIFFICULT TO UNDERSTAND AT TIMES. PT BECOMES TACHYCARDIC AFIB 130S WHEN RESTLESS. PRECEDEX TITRATED FOR EFFECT. PT GIVEN METOPROLOL AND SEROQUEL PER OGT. CALMING MEASURES PROVIDED. UPDATED.
--- NOTE | 2021-09-30 12:42 | NUR ---
[id number]: DISCUSSED WITH MD HAWK THAT PT RESTLESSNESS WAXES AND WANES, AND HR BASELINE 90-120 DESPITE METOPROLOL DOSE THIS AM. MD HAWK IN TO SEE PT, NEW ORDERS OBTAINED. PT PLACED ON CPAP / 25% DUE TO INCREASED WOB. TOLERATING WELL. SATS NEVER DROPPED BELOW 93.
--- NOTE | 2021-09-30 13:25 | NUR ---
PT PULLING OFF CPAP MASK, STATES, "I DON'T WANT THE MASK! I HATE THAT MASK!" EXPLAINED TO PT MASK IS TO HELP HER BREATHE, NEEDS REINFORCEMENT OF TEACHING. PRECEDEX TITRATED FOR EFFECT. PT UP TO CHAIR WITH 2 PERSON ASSIST, USING CEILING LIFT. RT CALLED FOR BREATHING TREATMENT.
--- NOTE | 2021-09-30 18:10 | NUR ---
SHIFT SUMMARY PT A/O 2-3 THROUGHOUT SHIFT, FOLLOWS COMMANDS, LYN, VERY WEAK AND DECONDITIONED. PT UP TO CHAIR VIA SLING FOR 3 HRS. PRECEDEX GTT TITRATED FOR EFFECT. PT BECOMES RESTLESS AND AGITATED AT TIMES, AND THEN BECOMES TACHYCARDIC WITH O2 DESATURATIONS. PT PLACED BACK ON CPAP 12/12 25% INTERMITTENTLY THROUGHOUT SHIFT SECONDARY TO INCREASED WOB. OTHERWISE ON ROOM AIR. DISCUSSED ONGOING AFIB 90-120S WITH MD, HR INCREASED TO 150S WITH DISTRESS. CARDIZEM GTT AND DIG STARTED TODAY. GOOD UO. ADELITA CORTEZ IN PLACE, PLAN FOR ST EVAL IN AM.
[2021-10-01 04:12] LABS: BASOPHILS ABSOLUTE AUTO 0.02 K/mm3 (0.00-0.23); BASOPHILS PERCENT AUTO 0 % (0-2); EOSINOPHILS PERCENT AUTO 0 % (0-6); Hematocrit 39.2 % (33.0-51.0); Hemoglobin 12.5 g/dL (11.5-16.0); IMMATURE GRAN PERCENT AUTO 1 % (0-1); LYMPHOCYTES ABSOLUTE AUTO 0.51 K/mm3 (0.84-5.20); LYMPHOCYTES PERCENT AUTO 6 % (21-46); MONOCYTES ABSOLUTE AUTO 0.35 K/mm3 (0.16-1.47); MONOCYTES PERCENT AUTO 4 % (4-13); Mean Corpuscular HGB 28.8 pg (26.0-34.0); Mean Corpuscular HGB Conc 31.9 g/dL (31.5-36.5); Mean Corpuscular Volume 90 fL (80-100); Mean Platelet Volume 9.8 fL (9.1-12.4); NEUTROPHILS ABSOLUTE AUTO 7.41 K/mm3 (1.96-9.15); NEUTROPHILS PERCENT AUTO 88 % (41-73); Platelet Count 113 K/mm3 (150-400); Red Blood Cell Count 4.34 M/mm3 (3.80-5.20); White Blood Cell Count 8.39 K/mm3 (4.00-11.30)
[2021-10-01 04:33] LABS: Anion Gap 4 mmol/L (6-16); Blood Urea Nitrogen 54 mg/dL (8-24); Bun/Creatinine Ratio 69.1 (12.0-20.0); CO2, Blood 33 mmol/L (21-32); Calcium, Blood 8.5 mg/dL (8.5-10.1); Chloride, Blood 102 mmol/L (98-108); Creatinine, Blood 0.78 mg/dL (0.40-1.00); Glomerular Filtration Rate >60 (60-); Glucose, Blood 144 mg/dL (70-99); Magnesium, Blood 2.2 mg/dL (1.6-2.4); Phosphorus, Blood 3.7 mg/dL (2.5-4.9); Potassium, Blood 4.7 mmol/L (3.5-5.5); Sodium, Blood 139 mmol/L (136-145)
--- NOTE | 2021-10-01 06:39 | NUR ---
END OF SHIFT SUMMARY: PATIENT WAS VERY AGITATED AT START OF SHIFT. PRECEDEX WAS INCREASED WELL PRN ZYPREXA GIVEN. AFTER CALMING DOWN SHE WAS ABLE TO GET A LITTLE SLEEP. PATIENT ON ROOM AIR. SHE WAS ON BIPAP AT START OF SHIFT BUT SHE WAS YELLING INSIDE IT AND IT WAS MAKING HER MORE AGITATED SO IT WAS REMOVED. LUNGS SOUNDING MORE COURSE THROUGHOUT THE DURATION OF SHIFT BUT DOES HAVE A STRONG NONPRODUCTIVE COUGH. CARDIZEM DRIP CURRENTLY ON STANDBY HR HAS BEEN IN 70S. BP STABLE. Q2 TURNS WITH LIFT. SHE WAS ABLE TO FOLLOW SIMPLE COMMANDS TONIGHT BUT STILL FAIRLY CONFUSED. YELLING THAT SHE "NEEDS THE DOLLAR OUT OF HER WALLET" AND OTHER VERY RANDOM THINGS.
--- NOTE | 2021-10-01 07:33 | NUR ---
ASSUMED PT CARE. AFTER RECIEVING REPORT FROM NOC SHIFT, DISCUSSED WITH MD HAWK GOAL OF GETTING PT OFF PRECEDEX GTT AND ONTO PO/NGT MED MANAGEMENT; STARTING PO/NGT CCB; STOOL SOFTNERS.
--- NOTE | 2021-10-01 13:07 | NUR ---
PRECEDEX GTT TITRATED DOWN TO 0.4, PT A/OX4, WORKING WITH SPEECH THERAPY. PT NOW ABLE TO EXPECTORATE SPUTUM, THICK, BROWN. MD HAWK INFORMED THAT PT BECOMES INCREASINGLY AGITATED OVER THE NEXT HOUR, PRECEDEX GTT TITRATED FOR EFFECT. PT BECOMES TACHYPNEIC, TACHYCARDIC, YELLING OBESINITIES. MD HAWK IN TO SEE PT. GIVEN ZYPREXA IM, BREATHING TREATMENT, PLACED ON CPAP DUE TO INCREASE WOB. PT NOW CALM, TOLERATING CPAP, VITALS RETURNED TO NORMAL.
--- NOTE | 2021-10-01 18:26 | NUR ---
SHIFT SUMMARY PT CALM AND ABLE TO TITRATE PRECEDEX DOWN AT BEG OF SHIFT, HOWEVER, IN AFTERNOON PT BECOMES VERY AGITATED, RESTLESS, A/OX3, AND INCONSOLABLE. PT NEEDED IM ZYPREXA X1, PLACED ON CPAP FOR INCREASED WOB, PRECEDEX TITRATED FOR EFFECT. AT END OF SHIFT PRECEDEX GTT TITRATED DOWN TO SB. PT ABLE TO EXPECTORATE THICK, BROWN SPUTUM THIS SHIFT. ON RA WHEN NOT ON CPAP, SATS STABLE ABOVE 91%. NEB TREATMENTS INCREASED TO Q 4HRS. PT STARTED ON CARDIZEM PER TUBE. AFIB 70-120S. TF STARTED, RUNNING AT 35ML/HR AT END OF SHIFT, PLAN TO INCREASE BY 10-20ML INCREMENTS Q 8 TO GOAL OF 50ML/HR. STOOL SOFTENERS STARTED. GOOD UO. PT STARTED ON HCTZ. PT REPOSITIONED Q 2. EMOTIONAL SUPPORT PROVIDED PT CAN BE EMOTIONALLY LABILE AND QUITE ANXIOUS AT TIMES.
--- NOTE | 2021-10-01 21:00 | NUR ---
Heart rate increasing to 180-200; cardizem drip restarted at 5mg/hr. titrated precedex up due to severe agitation
--- NOTE | 2021-10-01 23:00 | NUR ---
cardizem drip turned off. heart rate down 80-110. blood pressure down. will monitor. resting off and on, will wake up yelling and being very agitated. precedex infusing at 0.5/hr at this time.
[2021-10-02 04:11] LABS: BASOPHILS ABSOLUTE AUTO 0.01 K/mm3 (0.00-0.23); BASOPHILS PERCENT AUTO 0 % (0-2); EOSINOPHILS PERCENT AUTO 0 % (0-6); Hematocrit 38.7 % (33.0-51.0); Hemoglobin 12.3 g/dL (11.5-16.0); IMMATURE GRAN ABSOLUTE AUTO 0.14 K/mm3 (0.00-0.10); IMMATURE GRAN PERCENT AUTO 1 % (0-1); LYMPHOCYTES ABSOLUTE AUTO 0.51 K/mm3 (0.84-5.20); LYMPHOCYTES PERCENT AUTO 5 % (21-46); MONOCYTES PERCENT AUTO 4 % (4-13); Mean Corpuscular HGB 28.3 pg (26.0-34.0); Mean Corpuscular HGB Conc 31.8 g/dL (31.5-36.5); Mean Corpuscular Volume 89 fL (80-100); Mean Platelet Volume 10.2 fL (9.1-12.4); NEUTROPHILS ABSOLUTE AUTO 9.05 K/mm3 (1.96-9.15); NEUTROPHILS PERCENT AUTO 90 % (41-73); Platelet Count 111 K/mm3 (150-400); RDW Standard Deviation 39.5 fL (35.1-46.3); Red Blood Cell Count 4.34 M/mm3 (3.80-5.20); White Blood Cell Count 10.11 K/mm3 (4.00-11.30)
--- NOTE | 2021-10-02 04:15 | NUR ---
afib with RVR rate 140-200 bpm. cardizem drip restarted
[2021-10-02 04:42] LABS: Anion Gap 6 mmol/L (6-16); Blood Urea Nitrogen 53 mg/dL (8-24); Bun/Creatinine Ratio 66.3 (12.0-20.0); CO2, Blood 31 mmol/L (21-32); Calcium, Blood 8.7 mg/dL (8.5-10.1); Chloride, Blood 102 mmol/L (98-108); Digoxin (Lanoxin) 0.65 ug/mL (0.80-2.00); Glomerular Filtration Rate >60 (60-); Glucose, Blood 157 mg/dL (70-99); Magnesium, Blood 1.7 mg/dL (1.6-2.4); Phosphorus, Blood 3.8 mg/dL (2.5-4.9); Potassium, Blood 4.4 mmol/L (3.5-5.5); Sodium, Blood 139 mmol/L (136-145)
--- NOTE | 2021-10-02 05:15 | NUR ---
heart rate still 140-180, becomes extremly agitated with resp distress. placed on bipap. prn meds given.
--- NOTE | 2021-10-02 06:10 | NUR ---
resting quietly. cardizem drip off due to decrease of blood pressure. HRR: afib 90-120's.
--- NOTE | 2021-10-02 06:48 | NUR ---
agitated most of night, yelling out, confused with situation. unable to console when agitated. bipap applied this am due to resp distress. Distress relieved with bipap. episodes of afib with RVR through night. large bm passed after having ducolax supp.
--- NOTE | 2021-10-02 07:43 | NUR ---
ASSUMED PT CARE THIS AM. PT RESTLESS, TRYING TO GET OUT OF BED, YELLING. HR AFIB 130S. DILT GTT TURNED ON, STARTED AT 5, PRECEDEX GTT TITRATED FOR EFFECT. PT REPOSITIONED FOR COMFORT. SPOKE WITH MD HAWK REGARDING PT ONGOING ISSUES WITH INTERMITTENT AGITATION/RESTLESS AND AFIB RVR. MD HAWK EVALUATING, PLAN FOR NEW ORDERS FOR MED MANAGEMENT. OGT IN PLACE AT 55 RIGHT NARE, TF AT GOAL RATE OF 50ML/HR. FC INTACT AND PATENT.
--- NOTE | 2021-10-02 17:28 | NUR ---
PRECEDEX GTT TITRATED FOR EFFECT. PT A/O2-3, FOLLOWS COMMANDS. FENT GIVEN X 1. PT UP TO CHAIR FOR 3 HOURS, TOLERATED WELL. PT ON RA FOR MAJORITY OF SHIFT, NO INCREASED WOB, MODERATE NON PRODUCTIVE COUGH. ORAL CARE PROVIDED Q 4 HRS. PT HAD SMALL STOOL SUSPICIOUS FOR BLOOD, MD NOTIFIED, ORDER TO OBTAIN OCCULT BLOOD TEST NEXT STOOL. TF AT GOAL, GOOD UO.
[2021-10-02 18:45] LABS: Hematocrit 39.9 % (33.0-51.0); Hemoglobin 13.2 g/dL (11.5-16.0)
--- NOTE | 2021-10-02 19:30 | NUR ---
assumed care after report recv'd assessment complete. ekg monitor showing SR 80's. lungs diminished with exp wheezes. on room air.
--- NOTE | 2021-10-02 19:35 | NUR ---
converted back to afib with rates 160-180. cardizem drip turned back on.
--- NOTE | 2021-10-03 00:30 | NUR ---
becoming short of breath with increased anxiety. audible wheezes noted. placed on bipap. tolerating well and states feeling better with on.
--- NOTE | 2021-10-03 01:15 | NUR ---
heart rate down under 110, cardizem drip weined off due to blood pressure.
--- NOTE | 2021-10-03 02:49 | NUR ---
patient arousable with light physical stimulation oriented x3, but mumbles incoherent speech at times, follows commands cardizem gtt on standby precedex gtt 0.4 KVO at 10 for abx Jevity 1.2 at 50ml/hr, dobhoff tapped at 58cm marking, PERRY residuals BiPAP on 10/13 25%Fio2 L DP and PT pulses by doppler, no swelling, no pain to palpation
[2021-10-03 05:03] LABS: BASOPHILS ABSOLUTE AUTO 0.01 K/mm3 (0.00-0.23); BASOPHILS PERCENT AUTO 0 % (0-2); EOSINOPHILS PERCENT AUTO 0 % (0-6); Hematocrit 37.9 % (33.0-51.0); Hemoglobin 12.4 g/dL (11.5-16.0); IMMATURE GRAN ABSOLUTE AUTO 0.11 K/mm3 (0.00-0.10); IMMATURE GRAN PERCENT AUTO 1 % (0-1); LYMPHOCYTES ABSOLUTE AUTO 0.46 K/mm3 (0.84-5.20); LYMPHOCYTES PERCENT AUTO 5 % (21-46); MONOCYTES ABSOLUTE AUTO 0.38 K/mm3 (0.16-1.47); MONOCYTES PERCENT AUTO 4 % (4-13); Mean Corpuscular HGB 28.7 pg (26.0-34.0); Mean Corpuscular HGB Conc 32.7 g/dL (31.5-36.5); Mean Corpuscular Volume 88 fL (80-100); Mean Platelet Volume 10.4 fL (9.1-12.4); NEUTROPHILS ABSOLUTE AUTO 8.24 K/mm3 (1.96-9.15); NEUTROPHILS PERCENT AUTO 90 % (41-73); Platelet Count 97 K/mm3 (150-400); RDW Coefficient Variation 11.9 % (11.7-14.2); RDW Standard Deviation 38.9 fL (35.1-46.3); Red Blood Cell Count 4.32 M/mm3 (3.80-5.20)
[2021-10-03 05:30] LABS: Anion Gap 9 mmol/L (6-16); Blood Urea Nitrogen 44 mg/dL (8-24); CO2, Blood 29 mmol/L (21-32); Calcium, Blood 8.9 mg/dL (8.5-10.1); Chloride, Blood 100 mmol/L (98-108); Creatinine, Blood 0.86 mg/dL (0.40-1.00); Glomerular Filtration Rate >60 (60-); Glucose, Blood 161 mg/dL (70-99); Magnesium, Blood 1.5 mg/dL (1.6-2.4); Phosphorus, Blood 4.3 mg/dL (2.5-4.9); Potassium, Blood 4.5 mmol/L (3.5-5.5); Sodium, Blood 138 mmol/L (136-145)
--- NOTE | 2021-10-03 06:21 | NUR ---
END OF SHIFT SUMMARY: Uneventful from assumed care time: approx 4 hours. Patient currently on RA. Saturation mid to high 90s. Cardizem remains off. Precedex remains at 0.4 mcg/kg/hr Dobhoff ramains in
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
--- NOTE | 2021-10-03 14:39 | NUR ---
PATIENT RESTLESS AND AGITATED CUSSING AT STAFF, GIVEN 50 MCG FENTANYL IVP, 5 MG ZYPREXA IM. MD AT BEDSIDE TALKING WITH PATIENT.
--- NOTE | 2021-10-03 18:00 | NUR ---
VSS EXCEPT HEART RATE RANGE 90-180, INCREASED PO CARDIZEM GTT, HAD TO RESTART CARDIZEM GTT CURRENTLY AT 10 MG/HR. PATIENT IS MUCH CALMER AND COOPERATIVE WITH HER GRAND-DAUGHTER AT THE BEDSIDE. THEY WENT AND GOT HER CROSS WORD PUZZLES AND GLASSES SO SHE HAS SOMETHING TO ENTERTAIN HER. OTHERWISE THIS AFTERNOON SHE HAS BEEN YELLING AT STAFF CALLING THEM LIARS AND SKANKS. PATIENT REMAINS NPO.
--- NOTE | 2021-10-03 18:21 | NUR ---
PATIENT'S GRAND-DAUGHTER ALFRED TOOK PATIENT'S WALLET AND JEWLERY HOME WITH HER THIS EVENING. SHE ALSO HAS THE PATIENT'S PHONE ALREADY AT HOME TOO.
--- NOTE | 2021-10-03 19:30 | NUR ---
Assumed care after report recv'd assessment complete. very anxious, calms after nurse in room talking. confused to situation and events.
--- NOTE | 2021-10-03 22:42 | NUR ---
Pulled out dobhoff tube. Replaced by nurse. placement check with air. CXR obtained to verify placement. Dr George called and messaged left for verification read and order to use new dobhoff.
--- NOTE | 2021-10-03 23:50 | NUR ---
Dobhoff placement confirmed and okay to use by Dr George. Inducer wire removed, setting up tube feeding to restart and patient pulled out again. Dr George called advised of being pulled out second time. Discussed no more meds due until 0900. Order recv'd for swallow study in am, will leave dobhoff out until swallow study complete.
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
--- NOTE | 2021-10-04 09:47 | NUR ---
SPEECH AND SWALLOW AT BEDSIDE TO PERFORM EVAL. PATIENT HAS NO DENTURES IN ROOM.
--- NOTE | 2021-10-04 10:27 | NUR ---
ABLE TO GIVE PO MEDS AFTER SWALLOW EVALUATION. TALKED WITH MD WILL MAKE HER PCU STATUS, ADD PT/OT TO HELP GET PATIENT STRONGER TO GO HOME. SHE IS TOLERATING THE CHAIR WELL TODAY SO FAR.
--- NOTE | 2021-10-04 10:49 | NUR ---
GETTING PATIENT UP WITH SLING TO COMMODE TO HAVE A BOWEL MOVEMENT.
--- NOTE | 2021-10-04 11:50 | NUR ---
PT HERE TO WORK WITH PATIENT WHO IS STILL UP IN CHAIR.
--- NOTE | 2021-10-04 15:41 | NUR ---
PATIENT'S GRAND-DAUGHTER AT BEDSIDE WITH PATIENT, OTHER FAMILY MEMBERS OUTSIDE WINDOW WAVING TO HER. THEY APPEAR TO BE HAVING A GOOD INTERACTION.
--- NOTE | 2021-10-04 17:09 | NUR ---
1630 PATIENT BECAME VERY AGITATED AND HR 180'S GIVEN 60 MG DILTIAZEM PO. TRIED TO GIVE HER 100 MG SEROGQUEL PO BUT PATIENT REFUSED UNTIL ALFRED CAME BACK WITH HER SOUP AT 1705. PATIENT WANTS TO GO DOWN STAIRS WITH THE FAMILY AND DOESN'T WANT TO DO REHAB. SHE IS ALSO WANTING TO CRAWL ON THE GROUND TO LOOK FOR A WHITE LINEN BAG THAT SHE PUT $20 IN. THIS BAG DOES NOT EXSIST HERE AT THE HOSPITAL. ALFRED IS TRYING TO REMIND HER THAT IT IS AT HOME WITH ALL HER OTHER THINGS. SHE IS ALSO TAKING ALL HER CLOTHES HOME TONIGHT. SO PATIENT WILL HAVE NO BELONGINGS HERE IN THE HOSPITAL. ALFRED IS DOING A GOOD JOB IN CALMING THE PATEINT DOWN. HER HEART RATE IS COMING DOWN NICELY WITH HER MEDICINE ON BOARD AND CARDIZEM GTT ON AT 15 MG/HR. DOWN TO 110-140 CURRENTLY.
--- NOTE | 2021-10-04 18:10 | NUR ---
MOST OF THE DAY NALLELY HAD A GOOD DAY, SHE WAS CALM AND COOPERATIVE UNTIL AT 1630 THE SUN WAS SETTING. WITH HER NEW AGITATION FOR TODAY HER HR WENT UP TO 180'S, WAS ABLE TO GET HER TO TAKE HER PO CARDIZEM. HER FRIEND ALFRED WAS ABLE TO CONVINCE HER TO TAKE HER SEROQUEL TO HELP HER RELAX. SHE WAS UP IN THE CHAIR TODAY FOR 8.5 HRS. SPEECH THERAPY CAME BY AND PUT HER ON A MECHANICAL SOFT DIET SINCE PATIENT HAS NO TEETH/DENTURES. PT CAME BAY TO EVALUATE HER AND IS SUGGESTING A REHAB FACILITY TO HELP HER BUILD UP HER MUSCLE STRENGTH. HER STATUS WAS CHANGED FROM ICU TO PCU STATUS DURING THE DAY. NO BEDS AVAILABLE SO SHE IS GOING TO STAY THE NIGHT. EVEN WITH BISCODYL GIVEN THIS MORNING, SHE HAS HAD NO SIGNIFICANT BM TODAY. SO SHE WAS GIVEN AN ADDITIONAL ONE WHEN SHE WAS PUT BACK INTO BED.
--- NOTE | 2021-10-04 20:00 | NUR ---
Assumed care after report recv'd. Resting with eyes closed when nurse first arrived. Assessment completed at this time. Continues to be very confused to situation and events. Knows she is in [facility] in ICU, but thinks granddaughter "lives downstairs" and doesn't understand why she is not allowed to go downstairs to see granddaughter. Monitor shows afib with rate 100-120.
--- NOTE | 2021-10-04 21:55 | NUR ---
When this RN attempted to give PM meds, became very agitated, yelling out for help. States took medications earlier in day and does not want more. Meds wasted. Started attempting to get out of bed, pulling at lines. Multiple attempts to calm unseccessful, continued to state "I am getting out of here" Zyprexa IM shiloh up to give for agitation, nurse continued to attempt to calm. Was able to calm and agreed to take "only heart pills". Pills again pulled and stool softners help for this PM. Took meds stating "if anything happens to me from these meds, you are responsible" Zyprexa held at this time since able to calm down.
[2021-10-05 04:35] LABS: BASOPHILS ABSOLUTE AUTO 0.02 K/mm3 (0.00-0.23); BASOPHILS PERCENT AUTO 0 % (0-2); EOSINOPHILS PERCENT AUTO 0 % (0-6); Hematocrit 37.8 % (33.0-51.0); Hemoglobin 12.4 g/dL (11.5-16.0); IMMATURE GRAN ABSOLUTE AUTO 0.09 K/mm3 (0.00-0.10); IMMATURE GRAN PERCENT AUTO 1 % (0-1); LYMPHOCYTES ABSOLUTE AUTO 0.46 K/mm3 (0.84-5.20); LYMPHOCYTES PERCENT AUTO 5 % (21-46); MONOCYTES ABSOLUTE AUTO 0.45 K/mm3 (0.16-1.47); MONOCYTES PERCENT AUTO 4 % (4-13); Mean Corpuscular HGB 28.6 pg (26.0-34.0); Mean Corpuscular HGB Conc 32.8 g/dL (31.5-36.5); Mean Corpuscular Volume 87 fL (80-100); Mean Platelet Volume 10.7 fL (9.1-12.4); NEUTROPHILS ABSOLUTE AUTO 9.13 K/mm3 (1.96-9.15); NEUTROPHILS PERCENT AUTO 90 % (41-73); Platelet Count 96 K/mm3 (150-400); RDW Coefficient Variation 12.1 % (11.7-14.2); RDW Standard Deviation 38.9 fL (35.1-46.3); Red Blood Cell Count 4.34 M/mm3 (3.80-5.20); White Blood Cell Count 10.15 K/mm3 (4.00-11.30)
[2021-10-05 05:28] LABS: Albumin, Blood 2.7 g/dL (3.4-5.0); Anion Gap 7 mmol/L (6-16); Blood Urea Nitrogen 30 mg/dL (8-24); Bun/Creatinine Ratio 29.4 (12.0-20.0); CO2, Blood 31 mmol/L (21-32); Calcium, Blood 8.7 mg/dL (8.5-10.1); Chloride, Blood 103 mmol/L (98-108); Creatinine, Blood 1.02 mg/dL (0.40-1.00); Glomerular Filtration Rate 53 (60-); Glucose, Blood 115 mg/dL (70-99); Phosphorus, Blood 3.2 mg/dL (2.5-4.9); Potassium, Blood 4.1 mmol/L (3.5-5.5); Sodium, Blood 141 mmol/L (136-145)
--- NOTE | 2021-10-05 05:55 | NUR ---
Sitting up watching t.v. and drinking coffee. Slept most of night and more alert this am, continues to be confused on situational and events. heart rate doing better through night with only occaional high of 130's but did not sustain.
--- NOTE | 2021-10-05 10:58 | NUR ---
WHEN BATHING THE PATIENT THIS MORNNING THERE WAS SOME STOOL ON HER PAD, BUT IT HAD COMPLETELY ABSORBED INTO THE PAD MAKING IT IMPOSSIBLE TO SEND A SAMPLE TO LAB AT THIS TIME.
--- NOTE | 2021-10-05 16:08 | NUR ---
Upon receiving a request for spiritual care, I visit patient. Patient immediately tells me about how nervous she is about the upcoming procedure and how she wants a prayer of blessing. Her Rn also mentioned that the patient had requested a cross and so I gave patient a Rosary Cross and provided a prayer of blessing for the patient. I also provided therapeutic listening and and anxiety containment. Patient responds well and shows signs of increased peace. I will continue to remain available to patient and family.
--- NOTE | 2021-10-05 17:36 | NUR ---
Pt transferred from ICU @1400. Pt is oriented x4, but super forgetful and will say illogical statements. VSS on RA. Tele: afib 100-110s. Pt was started on amio gtt upon arrival to floor. Amio bolus given and amio is running 33.3ml/hr at this time. Rate will need to be changed at 2030 to the 16.6ml/hr. Pt will be npo midnight for cardioversion tomorrow. Pt is very anxious about procedure. Jcarlos was called and prayed with pt at bedside. updated pt and "kim" at bedside. Pt has voided a couple times since transfer. Once on the bedpan and the other time was incontinent. Pt still needs stool sample collected.
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
[2021-10-06 06:05] LABS: BASOPHILS ABSOLUTE AUTO 0.01 K/mm3 (0.00-0.23); BASOPHILS PERCENT AUTO 0 % (0-2); EOSINOPHILS PERCENT AUTO 0 % (0-6); Hematocrit 38.2 % (33.0-51.0); Hemoglobin 12.5 g/dL (11.5-16.0); IMMATURE GRAN ABSOLUTE AUTO 0.07 K/mm3 (0.00-0.10); IMMATURE GRAN PERCENT AUTO 1 % (0-1); LYMPHOCYTES ABSOLUTE AUTO 0.71 K/mm3 (0.84-5.20); LYMPHOCYTES PERCENT AUTO 6 % (21-46); MONOCYTES ABSOLUTE AUTO 0.47 K/mm3 (0.16-1.47); MONOCYTES PERCENT AUTO 4 % (4-13); Mean Corpuscular HGB 28.8 pg (26.0-34.0); Mean Corpuscular HGB Conc 32.7 g/dL (31.5-36.5); Mean Corpuscular Volume 88 fL (80-100); Mean Platelet Volume 10.6 fL (9.1-12.4); NEUTROPHILS ABSOLUTE AUTO 10.81 K/mm3 (1.96-9.15); NEUTROPHILS PERCENT AUTO 90 % (41-73); Platelet Count 111 K/mm3 (150-400); RDW Coefficient Variation 12.3 % (11.7-14.2); RDW Standard Deviation 39.4 fL (35.1-46.3); Red Blood Cell Count 4.34 M/mm3 (3.80-5.20); White Blood Cell Count 12.07 K/mm3 (4.00-11.30)
[2021-10-06 06:27] LABS: Albumin, Blood 2.7 g/dL (3.4-5.0); Anion Gap 8 mmol/L (6-16); Blood Urea Nitrogen 34 mg/dL (8-24); Bun/Creatinine Ratio 32.1 (12.0-20.0); CO2, Blood 32 mmol/L (21-32); Calcium, Blood 8.9 mg/dL (8.5-10.1); Chloride, Blood 100 mmol/L (98-108); Creatinine, Blood 1.06 mg/dL (0.40-1.00); Glomerular Filtration Rate 51 (60-); Glucose, Blood 95 mg/dL (70-99); Phosphorus, Blood 2.9 mg/dL (2.5-4.9); Sodium, Blood 140 mmol/L (136-145)
[2021-10-06 14:34] LABS: Albumin, Blood 2.7 g/dL (3.4-5.0); Albumin/Globulin Ratio 0.8 (0.8-1.8); Bilirubin, Direct 0.5 mg/dL (0.0-0.3); Bilirubin, Indirect 0.4 mg/dL (0.1-0.7); Bilirubin, Total 0.9 mg/dL (0.1-1.0); Globulin, Blood 3.5 g/dL (2.2-4.0); Total Protein, Blood 6.2 g/dL (6.4-8.2)
--- NOTE | 2021-10-06 15:01 | NUR ---
Spiritual care visit conducted. Patient is very sleepy but but agrees to prayer. I galdly provide prayer. Patient falls back to sleep. I will continue to remain available to patient and family.
--- NOTE | 2021-10-06 16:49 | NUR ---
SHIFT SUMMARY PT IS A&O X4 THOUGH FORGETFUL AND PERIODS OF CONFUSION. PT WILL ASK QUESTIONS ABOUT PLAN OF CARE, LISTEN TO THE EXPLANATION, THEN REPEAT THE QUESTIONS ABOUT THE PLAN OF CARE AT A LATER TIME. PT DECLINED TO HAVE PROCEDURE TODAY CITING THAT THEY WOULD PREFER MEDICAL MANAGEMENT. A FAMILY MEMBER CAME TO SEE THE PT AND ASKED QUESTIONS ABOUT THE PLAN OF CARE AND DISCHARGE PLANNING, EXPRESSING CONCERNS FOR THE PT'S SAFETY AT HOME. VSS, NO ACUTE CHANGES TO CURRENT CONDITION.
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
[2021-10-07 06:47] LABS: Albumin, Blood 2.6 g/dL (3.4-5.0); Anion Gap 8 mmol/L (6-16); Blood Urea Nitrogen 41 mg/dL (8-24); Bun/Creatinine Ratio 41.8 (12.0-20.0); CO2, Blood 30 mmol/L (21-32); Calcium, Blood 8.7 mg/dL (8.5-10.1); Chloride, Blood 102 mmol/L (98-108); Creatinine, Blood 0.98 mg/dL (0.40-1.00); Glomerular Filtration Rate 56 (60-); Glucose, Blood 88 mg/dL (70-99); Phosphorus, Blood 2.3 mg/dL (2.5-4.9); Potassium, Blood 3.4 mmol/L (3.5-5.5); Sodium, Blood 140 mmol/L (136-145)
[2021-10-07 06:59] LABS: BASOPHILS ABSOLUTE AUTO 0.01 K/mm3 (0.00-0.23); BASOPHILS PERCENT AUTO 0 % (0-2); EOSINOPHILS PERCENT AUTO 0 % (0-6); Hematocrit 39.3 % (33.0-51.0); Hemoglobin 12.8 g/dL (11.5-16.0); IMMATURE GRAN ABSOLUTE AUTO 0.07 K/mm3 (0.00-0.10); IMMATURE GRAN PERCENT AUTO 1 % (0-1); LYMPHOCYTES ABSOLUTE AUTO 0.86 K/mm3 (0.84-5.20); LYMPHOCYTES PERCENT AUTO 6 % (21-46); MONOCYTES ABSOLUTE AUTO 0.57 K/mm3 (0.16-1.47); MONOCYTES PERCENT AUTO 4 % (4-13); Mean Corpuscular HGB 28.5 pg (26.0-34.0); Mean Corpuscular HGB Conc 32.6 g/dL (31.5-36.5); Mean Corpuscular Volume 88 fL (80-100); Mean Platelet Volume 11.2 fL (9.1-12.4); NEUTROPHILS ABSOLUTE AUTO 12.91 K/mm3 (1.96-9.15); NEUTROPHILS PERCENT AUTO 89 % (41-73); Platelet Count 117 K/mm3 (150-400); RDW Coefficient Variation 12.4 % (11.7-14.2); RDW Standard Deviation 39.7 fL (35.1-46.3); Red Blood Cell Count 4.49 M/mm3 (3.80-5.20); White Blood Cell Count 14.42 K/mm3 (4.00-11.30)
--- NOTE | 2021-10-07 10:15 | NUR ---
CARE ASSUMPTION PT A&O X4, ANSWERING Q's APPROPRIATELY BUT IS FORGETFUL & REQUIRING SOME REMINDING. VSS. SPO2 > 92% ON RA. MONITOR SHOWS AFIB, HR 100-120's. CARDIAC MEDS GIVEN PER EMAR. PT DENIES PAIN/DISCOMFORT. ATTENDS IN PLACE, C/D/I, PT CALLING APPROPRIATELY FOR BEDPAN USE. WILL CONTINUE TO MONITOR & PROVIDE CARE.
--- NOTE | 2021-10-07 10:25 | NUR ---
Met with Lora this morning. She is alone in her room. She remains in a-fib in the low 100s to 119. Lora has some difficulty hearing. She reports that she just wants to go home. Explained to her about her heart condition and the risk of CVA with her current heart rhythm. She states that she doesn't want any procedures done. She reports that she had a cardioversion in [place] about 8-9 years ago and doesn't want to do that again. "I don't want resources used up on me, I'm old." She reports that she is willing to take medications but not have procedures. She states her son, Liu, doesn't agree with her choice, however she reports that it is her choice. She states that she has juan that God will take care of her heart and that when it's her time to that she will go to [facility] to be with Sal Vasquez. She wants to go home to spend time with her grandchildren. She appears to be mostly alert and oriented however she appears to have some intermittent confusion and it is difficult to determine if she understands the ramifications of her decisions. LM with Shannon, who is listed as her granddaughter per notes to contact this news writer. No other contact numbers available. Lora gave this news writer permission to contact Shannon and her son, Liu. Lora gave Shannon's number to this news writer. Will await a call back from Shannon. It may be helpful for pt to have family present for a discussion of goals of care. Lora is quite adament that she doesn't want any procedures done and that she just wishes to go home. PC to follow for assistance with advanced care planning and goals of care.
--- NOTE | 2021-10-07 13:15 | NUR ---
Spiritual care visit conducted. Patient is sitting up in bed and alert.She tells me that she will DC today and that she is feeling better. She talks about the wonderful love and support she feels from Shannon and her family. She explains about the long history she has with Shannon and her family for nearly 60 yrs. Patient talks about her juan and its value to her. I provide therapeutic listening and prayer. Patient responds well and shows signs of an elevated mood.
--- NOTE | 2021-10-07 16:07 | NUR ---
Called Shannon and spoke with her. She reports that she has known pt since she was a child. Lora lives with Shannon and her 5 children. Shannon states that Lora has a son, Liu, who she states is homeless here locally. Lora reports Liu came to visit her yesterday, no visitors have come today. Shannon states that Lora told her the she would like her (Shannon) to be her decision maker. Shannon reports that she is able to take Lora back home, but that she would like her to have the procedure (cardioversion) done before coming home. Shannon states that when she had to call the ambulance for Lora to come to that hospital that it was scary for her and her children to witness. Explained to Shannon that staff cannot force Lora to have a procedure that she is telling staff that she doesn't want. Shannon verbalized understanding and acknowledged that Lora should make the decision. Shannon reports she is ill today and is hoping to come and visit Lora tomorrow to have further discussions on plan of care. Spoke with Lora after talking to Shannon. Lora reports she doesn't want the procedure. Lora is more repetitive this afternoon and is talking to the TV and appears to be less alert than this morning. Lora states "It's time for me to be done, maybe I should go back to [place]." Lora reports she has a dtr, Marilyn, in [place]. Lora doesn't have any contact information for either Liu or Marilyn. Shannon states the only contact she has for Liu is through text now. Spoke with Dr. Mosqueda and nursing to update on continued search for a decision maker. At this time Dr. Mosqueda states pt's heart rate is starting to improve and she will continue to be monitored overnight. Current plan is for SNF unless goals of care change. PC to remain available to assist with finding a decision maker.
--- NOTE | 2021-10-07 18:23 | NUR ---
SHIFT SUMMARY PT A&O X4 W/ EPISODES OF FORGETFULNESS. PT VSS. SPO2 > 92% ON RA. MONITOR SHOWING AFIB/AFLUTTER, HR 90's-120's. CARDIAC MEDS GIVEN PER EMAR W/ SOME IMPROVEMENT. PT REQUESTING TO GO HOME, PT RECONFIRMING SHE DOES NOT WANT CARDIAC PROCEDURE, MEDICATIONS ONLY. HR STILL ELEVATED, IV DIGOXIN GIVEN PER EMAR. WILL CONTINUE TO MONITOR UNTIL REPORT OFF TO HVAC DESIGN ENGINEER RN.
--- NOTE | 2021-10-08 05:59 | NUR ---
VSS. A/OX4-FORGETFUL. DENIED SOB. OCCASIONALLY INC THROUGHOUT NIGHT. BRIEF IN PLACE. BARRIER CREAM APPLIED TO INNER BUTTOCKS. CALL LIGHT W/IN REACH. NO ISSUES OVERNIGHT.
[2021-10-08 06:20] LABS: BASOPHILS ABSOLUTE AUTO 0.01 K/mm3 (0.00-0.23); BASOPHILS PERCENT AUTO 0 % (0-2); EOSINOPHILS ABSOLUTE AUTO 0.01 K/mm3 (0.00-0.68); EOSINOPHILS PERCENT AUTO 0 % (0-6); Hematocrit 39.8 % (33.0-51.0); Hemoglobin 13.3 g/dL (11.5-16.0); IMMATURE GRAN ABSOLUTE AUTO 0.09 K/mm3 (0.00-0.10); IMMATURE GRAN PERCENT AUTO 1 % (0-1); LYMPHOCYTES ABSOLUTE AUTO 0.93 K/mm3 (0.84-5.20); LYMPHOCYTES PERCENT AUTO 7 % (21-46); MONOCYTES ABSOLUTE AUTO 0.49 K/mm3 (0.16-1.47); MONOCYTES PERCENT AUTO 4 % (4-13); Mean Corpuscular HGB 28.9 pg (26.0-34.0); Mean Corpuscular HGB Conc 33.4 g/dL (31.5-36.5); Mean Corpuscular Volume 86 fL (80-100); Mean Platelet Volume 10.5 fL (9.1-12.4); NEUTROPHILS ABSOLUTE AUTO 11.53 K/mm3 (1.96-9.15); NEUTROPHILS PERCENT AUTO 88 % (41-73); Platelet Count 102 K/mm3 (150-400); RDW Coefficient Variation 12.6 % (11.7-14.2); RDW Standard Deviation 38.9 fL (35.1-46.3); Red Blood Cell Count 4.61 M/mm3 (3.80-5.20); White Blood Cell Count 13.06 K/mm3 (4.00-11.30)
[2021-10-08 06:35] LABS: Albumin, Blood 2.5 g/dL (3.4-5.0); Anion Gap 6 mmol/L (6-16); Blood Urea Nitrogen 33 mg/dL (8-24); CO2, Blood 29 mmol/L (21-32); Calcium, Blood 8.3 mg/dL (8.5-10.1); Chloride, Blood 105 mmol/L (98-108); Creatinine, Blood 0.92 mg/dL (0.40-1.00); Glomerular Filtration Rate >60 (60-); Glucose, Blood 79 mg/dL (70-99); Phosphorus, Blood 2.6 mg/dL (2.5-4.9); Potassium, Blood 3.6 mmol/L (3.5-5.5); Sodium, Blood 140 mmol/L (136-145)
[2021-10-08 07:03] LABS: Digoxin (Lanoxin) 0.94 ug/mL (0.80-2.00)
--- NOTE | 2021-10-08 10:00 | NUR ---
CARE ASSUMPTION / MEDICAL STATUS PT A&O X4 W/ SOME FORGETFULNESS. PT VSS. SPO2 > 92% ON RA. MONITOR SHOWS AFIB, HR 80's-110's. PT MADE MEDICAL W/ TELE STATUS.
[2021-10-08 10:36] LABS: Influenza A, PCR NEGATIVE (NEGATIVE); Influenza B, PCR NEGATIVE (NEGATIVE); Resp Syncytial Virus, PCR NEGATIVE (NEGATIVE); SARS-Cov-2 (COVID-19) PCR, MMC NEGATIVE (NEGATIVE)
[2021-10-08] MEDS ORDERED: Amiodarone HCl200 MG (11:09)
[2021-10-08] MEDS ORDERED: ELIQUIS5 M2 PO (11:21)
[2021-10-08] MEDS ORDERED: LANOXIN125 MCG PO (11:22)
[2021-10-08] MEDS ORDERED: Prednisone10 MG PO (11:26)
[2021-10-08] MEDS ORDERED: QUET100 PO (11:27)
[2021-10-08] MEDS ORDERED: LISI5 PO (11:27)
[2021-10-08] MEDS ORDERED: ALBU2.5V5 INH (11:29)
--- NOTE | 2021-10-08 12:08 | NUR ---
DISCHARGE TO [facility] PT A&O X4 W/ SOME FORGETFULNESS. PT VSS. MONITOR SHOWING AFIB, HR 80's-110's BEFORE TELEMETRY REMOVAL FOR DISCHARGE. DISCHARGE INSTRUCTIONS REVIEWED W/ PT. PIV's REMOVED. PT 1 PERSON STAND AND PIVOT FROM BED TO WHEELCHAIR, PT TAKEN BY [facility] TRANSPORT TO [facility] @ APPROX 1200.
== END 2021-10-08 12:04 | DRG 207 ==
LOC: ER 04:05 → ICUW 05:24 → PCU 05:24 → ICUW 07:13 → PCU 10-05 13:49
PROVIDERS: Family Medicine; Internal Medicine; Internal Medicine Cardiovascular Disease; Internal Medicine Critical Care Medicine; Pharmacist; Student in an Organized Health Care Education/Training Program; ADMIT Internal Medicine
PROC: 5A1955Z Respiratory Ventilation, Greater than 96 Consecutive Hours (ICD-10-PCS; principal; 2021-09-23)
PROC: 5A09357 Assistance with Respiratory Ventilation, Less than 24 Consecutive Hours, Continuous Positive Airway Pressure (ICD-10-PCS; 2021-09-23)
PROC: 0BH18EZ Insertion of Endotracheal Airway into Trachea, Via Natural or Artificial Opening Endoscopic (ICD-10-PCS; 2021-09-23)
DX: J96.01 Acute respiratory failure with hypoxia (principal); I50.41 Acute combined systolic (congestive) and diastolic (congestive) heart failure; G92.8 Other toxic encephalopathy; J44.1 Chronic obstructive pulmonary disease with (acute) exacerbation; I42.9 Cardiomyopathy, unspecified; E87.2 Acidosis; I48.92 Unspecified atrial flutter; Z20.822 Contact with and (suspected) exposure to COVID-19; N18.30 Chronic kidney disease, stage 3 unspecified; I27.20 Pulmonary hypertension, unspecified; D69.6 Thrombocytopenia, unspecified; E87.6 Hypokalemia; E83.39 Other disorders of phosphorus metabolism; F41.9 Anxiety disorder, unspecified; I48.91 Unspecified atrial fibrillation; J96.02 Acute respiratory failure with hypercapnia; R41.0 Disorientation, unspecified; D72.828 Other elevated white blood cell count; Z53.29 Procedure and treatment not carried out because of patient's decision for other reasons; E88.09 Other disorders of plasma-protein metabolism, not elsewhere classified; Z79.82 Long term (current) use of aspirin; Z79.899 Other long term (current) drug therapy
CPT/HCPCS: 0241U; 31500; 31720; 36415; 36600; 51702; 71045; 80048; 80053; 80069; 80076; 80162; 81001; 82803; 82947; 83605; 83735; 83880; 84100; 84484; 85014; 85018; 85025; 87040; 87070; 87077; 87086; 87186; 87205; 92526; 92610; 93005; 93010; 93306; 94002; 94003; 94640; 94644; 94645; 94660; 94760; 94762; 96365-59; 96376-59; 97110; 97162; 97166; 97530; 99291-25; A9270; C1751; C9113; J0282; J0696; J1160; J1650; J1940; J2250; J2405; J2543; J2704; J2920; J2930; J3010; J3370; J3475; J3480; J7030; J7050; J7060; J7120; J7512

== ENCOUNTER 2021-10-25 21:33 | Inpatient (IN) | payer MEDICARE, OTHER ==
[~2021-10-25] VITALS: Ht 160 cm; Wt 67.6 kg
[~2021-10-25 21:33] MED LIST changes: +Amiodarone HCl200 MG; -BREO ELLIPTA 11 EAC1 INH; +ELIQUIS5 M2 PO; -HYDCHL25 PO; +LANOXIN125 MCG PO; +LISI5 PO; -METO25ER PO; -POTA10T PO; +Prednisone10 MG PO; +QUET100 PO; -TIOT18 INH
[2021-10-25 22:33] LABS: BASOPHILS ABSOLUTE AUTO 0.03 K/mm3 (0.00-0.23); BASOPHILS PERCENT AUTO 1 % (0-2); EOSINOPHILS ABSOLUTE AUTO 0.06 K/mm3 (0.00-0.68); EOSINOPHILS PERCENT AUTO 2 % (0-6); Hematocrit 27.5 % (33.0-51.0); Hemoglobin 9.8 g/dL (11.5-16.0); Mean Corpuscular HGB 34.8 pg (26.0-34.0); Mean Corpuscular HGB Conc 35.6 g/dL (31.5-36.5); Mean Corpuscular Volume 98 fL (80-100); Mean Platelet Volume 9.8 fL (9.1-12.4); Platelet Count 226 K/mm3 (150-400); RDW Coefficient Variation 17.2 % (11.7-14.2); RDW Standard Deviation 48.9 fL (35.1-46.3); Red Blood Cell Count 2.82 M/mm3 (3.80-5.20); White Blood Cell Count 3.65 K/mm3 (4.00-11.30)
[2021-10-25 22:37] LABS: IMMATURE GRAN ABSOLUTE AUTO 0.02 K/mm3 (0.00-0.10); IMMATURE GRAN PERCENT AUTO 1 % (0-1); LYMPHOCYTES PERCENT AUTO 16 % (21-46); MONOCYTES ABSOLUTE AUTO 0.41 K/mm3 (0.16-1.47); MONOCYTES PERCENT AUTO 11 % (4-13); NEUTROPHILS ABSOLUTE AUTO 2.53 K/mm3 (1.96-9.15); NEUTROPHILS PERCENT AUTO 70 % (41-73)
[2021-10-25 22:47] LABS: Anion Gap 7 mmol/L (6-16); Blood Urea Nitrogen 14 mg/dL (8-24); Bun/Creatinine Ratio 15.7 (12.0-20.0); CO2, Blood 25 mmol/L (21-32); Calcium, Blood 7.7 mg/dL (8.5-10.1); Chloride, Blood 109 mmol/L (98-108); Creatinine, Blood 0.89 mg/dL (0.40-1.00); Glomerular Filtration Rate >60 (60-); Glucose, Blood 135 mg/dL (70-99); Potassium, Blood 3.7 mmol/L (3.5-5.5); Sodium, Blood 141 mmol/L (136-145); Troponin I <0.015 ng/mL (0.000-0.040)
[2021-10-26 09:16] LABS: BASOPHILS ABSOLUTE AUTO 0.04 K/mm3 (0.00-0.23); BASOPHILS PERCENT AUTO 1 % (0-2); EOSINOPHILS ABSOLUTE AUTO 0.05 K/mm3 (0.00-0.68); EOSINOPHILS PERCENT AUTO 1 % (0-6); Hematocrit 27.7 % (33.0-51.0); Hemoglobin 8.8 g/dL (11.5-16.0); Mean Corpuscular HGB 28.7 pg (26.0-34.0); Mean Corpuscular HGB Conc 31.8 g/dL (31.5-36.5); Mean Platelet Volume 9.6 fL (9.1-12.4); Platelet Count 188 K/mm3 (150-400); RDW Coefficient Variation 14.9 % (11.7-14.2); RDW Standard Deviation 48.9 fL (35.1-46.3); Red Blood Cell Count 3.07 M/mm3 (3.80-5.20); White Blood Cell Count 4.27 K/mm3 (4.00-11.30)
[2021-10-26 09:17] LABS: IMMATURE GRAN ABSOLUTE AUTO 0.02 K/mm3 (0.00-0.10); IMMATURE GRAN PERCENT AUTO 1 % (0-1); LYMPHOCYTES PERCENT AUTO 19 % (21-46); MONOCYTES ABSOLUTE AUTO 0.58 K/mm3 (0.16-1.47); MONOCYTES PERCENT AUTO 14 % (4-13); Mean Corpuscular Volume 90 fL (80-100); NEUTROPHILS ABSOLUTE AUTO 2.78 K/mm3 (1.96-9.15); NEUTROPHILS PERCENT AUTO 65 % (41-73)
--- NOTE | 2021-10-26 16:26 | NUR ---
SHIFT SUMMARY PATIENT IS ALERT AND ORIENTED X2. PATIENT HAS A HISTORY OF DEMENTIA. PATIENT RAMBLES AND BECOMES INCOHERENTLY AND OFF TOPIC. LIVING SITUATION IS QUESTIONABLE AND NEEDS CLARIFICATION. PATIENT HAS HAD NO ACUTE INCIDENTS THIS SHIFT. VITAL SIGNS REVIEWED. CALL LIGHT IN PLACE. WILL MONITOR UNTIL SHIFT CHANGE.
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
--- NOTE | 2021-10-27 04:18 | NUR ---
SHIFT SUMMARY PT IS AWAKE AND ALERT X2.FULL CODE STATUS. PT WAS CONFUSED AND TALKED TO HERSELD DURING SHIFT.PT BACAME VERY AGITATED HER SOB INCREASED. RT WAS CALLED AND BREATHING TX WAS GIVEN, IT DIDN'T REALLY HELP. LOUD BILATERALLY WHEEZING NOTED. MD WAS CALLED AND SOLUMEDROL WAS ORDERED AND GIVEN.ALSO PT'S SATURATION DROPPED TO THE 80'S. PT WAS PLACED ON 2L NC. PT IS SLEEPING NOW ,SATURATION 89-90% BED IN LOWER POSITION ,CALL LIGHT WITHIN REACH .WILL CONTINUE TO MONITOR.
[2021-10-27 09:45] LABS: Hematocrit 29.8 % (33.0-51.0); Hemoglobin 9.4 g/dL (11.5-16.0); Mean Corpuscular HGB 28.7 pg (26.0-34.0); Mean Corpuscular HGB Conc 31.5 g/dL (31.5-36.5); Mean Corpuscular Volume 91 fL (80-100); Mean Platelet Volume 9.8 fL (9.1-12.4); Platelet Count 190 K/mm3 (150-400); RDW Coefficient Variation 14.6 % (11.7-14.2); RDW Standard Deviation 47.7 fL (35.1-46.3); Red Blood Cell Count 3.27 M/mm3 (3.80-5.20); White Blood Cell Count 3.21 K/mm3 (4.00-11.30)
[2021-10-27 10:11] LABS: Bun/Creatinine Ratio 21.4 (12.0-20.0); Creatinine, Blood 0.94 mg/dL (0.40-1.00); Potassium, Blood 4.1 mmol/L (3.5-5.5)
[2021-10-27 10:38] LABS: BAND PERCENT MAN 9 % (0-8); BASOPHILS PERCENT MAN 0 % (0-2); EOSINOPHILS PERCENT MAN 0 % (0-6); LYMPHOCYTES ABSOLUTE MAN 0.22 K/mm3 (0.84-5.20); LYMPHOCYTES PERCENT MAN 7 % (21-46); MONOCYTES ABSOLUTE MAN 0.03 K/mm3 (0.16-1.47); MONOCYTES PERCENT MAN 1 % (4-13); NEUTROPHILS ABSOLUTE MAN 2.95 K/mm3 (1.96-9.15); SEG NEUTROPHILS PERCENT MAN 83 % (41-73); TOTAL CELLS COUNTED 100
[2021-10-27 12:24] LABS: Base Excess Venous 3.3 mmol/L; Bicarbonate Venous 27.2 mmol/L (24.0-30.0); PCO2 Venous 38.2 mmHg (38-42); PO2 Venous 123 mmHg (38-42); pH Blood Venous 7.46 (7.34-7.37)
[2021-10-27] MEDS ORDERED: HYDCHL25 PO (15:58)
[2021-10-27] MEDS ORDERED: OMEP20ER PO (15:58)
[2021-10-27] MEDS ORDERED: METO25ER PO (15:59)
[2021-10-27] MEDS ORDERED: POTA10T PO (16:00)
[2021-10-27] MEDS ORDERED: ALBU90OI INH (16:00)
[2021-10-27] MEDS ORDERED: BREO ELLIPTA 11 EAC1 INH (16:02)
[2021-10-27] MEDS ORDERED: SPIRIVA RESPIMAT4 G3 INH (16:03)
--- NOTE | 2021-10-27 16:58 | NUR ---
SHIFT SUMMARY PATIENT IS ALERT AND ORIENTATED X4. PATIENT HAS BEEN PLEASENT AND COOPERATIVE WITH CARE. PATIENT IS INDEPENDENT TO BATHROOM AND CALLS TO LET YOU KNOW HE NEEDS TO USE RESTROOM AND WHEN HES DONE. PATIENT HAS BEEN RESTING COMFORTABLY WITH NO COMPLAINTS OF PAIN, SOB, NAUSEA, VOMITTING. HR HAS BEEN ELEVATED BUT WITH PRN METROPOLOL RATE IS CONTROLLED. NO ACUTE EVENTS THIS SHIFT. CALL LIGHT IN PLACE. WILL MONITOR UNTIL SHIFT CHANGE.
--- NOTE | 2021-10-27 17:30 | NUR ---
NURSE NOTES PATIENT HAD A BP OF 79/46. GAVE 250ML BOLUS AND IT IMPROVED TO 82/62. OBTAINED ANOTHER ORDER FOR 250ML BOLUS.
--- NOTE | 2021-10-27 18:02 | NUR ---
SHIFT SUMMARY PATIENT IS ALERT AND ORIENTATED TO SELF ONLY. PATIENT HAS SLEPT MOST OF THE MORNING, AWOKE FOR MORNING VITALS AND MEDICATIONS THEN WENT BACK TO SLEEP. PATIENT HAS BEEN SWITCHING BETWEEN A VENTI MASK AND A NASAL CANNULA 4-5 LITERS O2 WITH SATTING LOW 90S. BLOOD PRESSURE HAS BEEN SOME IN THE 70S/40S AND HAS RECEIVED 2 BOLUSES OF 500ML TOTAL. AWAITING BP RESULTS. VITAL SIGNS REVIEWED. CALL LIGHT IN PLACE. WILL MONITOR UNTIL SHIFT CHANGE.
--- NOTE | 2021-10-28 04:09 | NUR ---
SHIFT SUMMARY PT IS AWAKE AND ALERT TO HERSELF. PT IS CONFUSED AND TALKED TO HERSELF ALMOST ALL NIGHT. PT STILL WHEEZING AND ON 4L NC SATURATION 89 TO 91%.BREATHING TX WAS GIVEN ,AND 02 MONITORED.BP STILL ON THE LOW SIDE BUT MAP OVER 65 AND PT IS ASYMPTOMATIC. ALL FALL PRECAUTION IN PLACE AND CALL LIGHT ON EASY REACH. WILL CONTINUE TO MONITOR.
[2021-10-28 04:54] LABS: Hematocrit 29.8 % (33.0-51.0); Hemoglobin 9.5 g/dL (11.5-16.0); Mean Corpuscular HGB 28.6 pg (26.0-34.0); Mean Corpuscular HGB Conc 31.9 g/dL (31.5-36.5); Mean Corpuscular Volume 90 fL (80-100); Mean Platelet Volume 9.9 fL (9.1-12.4); Platelet Count 251 K/mm3 (150-400); RDW Coefficient Variation 14.8 % (11.7-14.2); RDW Standard Deviation 48.2 fL (35.1-46.3); Red Blood Cell Count 3.32 M/mm3 (3.80-5.20); White Blood Cell Count 6.13 K/mm3 (4.00-11.30)
[2021-10-28 06:05] LABS: BAND PERCENT MAN 11 % (0-8); BASOPHILS PERCENT MAN 0 % (0-2); EOSINOPHILS PERCENT MAN 0 % (0-6); LYMPHOCYTES ABSOLUTE MAN 0.18 K/mm3 (0.84-5.20); LYMPHOCYTES PERCENT MAN 3 % (21-46); MONOCYTES ABSOLUTE MAN 0.06 K/mm3 (0.16-1.47); MONOCYTES PERCENT MAN 1 % (4-13); NEUTROPHILS ABSOLUTE MAN 5.88 K/mm3 (1.96-9.15); SEG NEUTROPHILS PERCENT MAN 85 % (41-73); TOTAL CELLS COUNTED 100
[2021-10-28 06:21] LABS: Albumin, Blood 2.1 g/dL (3.4-5.0); Anion Gap 9 mmol/L (6-16); Blood Urea Nitrogen 26 mg/dL (8-24); Bun/Creatinine Ratio 25.2 (12.0-20.0); CO2, Blood 26 mmol/L (21-32); Calcium, Blood 7.9 mg/dL (8.5-10.1); Chloride, Blood 105 mmol/L (98-108); Creatinine, Blood 1.03 mg/dL (0.40-1.00); Glomerular Filtration Rate 53 (60-); Glucose, Blood 204 mg/dL (70-99); Phosphorus, Blood 3.7 mg/dL (2.5-4.9); Potassium, Blood 3.9 mmol/L (3.5-5.5); Sodium, Blood 140 mmol/L (136-145)
--- NOTE | 2021-10-28 17:47 | NUR ---
PATIENT IS ALERT AND DISORIENTED. SHE BECOMES EXCITED AND TALKATIVE AND HER HR SPIKES. ON 3L O2 VIA NC. CONTINUOUS PULSE OX IS IN PLACE. INCONTINENT OF BLADDER, ATTENDS IN PLACE. WAS CONSULTED BY SPEECH THERAPY, PLACED ON A PUREE DIET. 2PA STAND PIVOT TO THE CHAIR OR BSC. WORKED WITH PHYSICAL THERAPY TODAY. WILL CONTINUE TO MONITOR
[2021-10-29 04:37] LABS: Hematocrit 30.6 % (33.0-51.0); Hemoglobin 9.6 g/dL (11.5-16.0)
--- NOTE | 2021-10-29 04:41 | NUR ---
SHIFT SUMMARY NO ACUTE EVENTS THROUGH THE NIGHT. PT REMAINS CONFUSED, STILL ON 3L NC. PT IS INCONTINENT WITH BLADDER. VSS REVIEWED. ALL MEDS GIVEN PER EMAR. BED IN LOWER POSITION AND CALL LIGHT IN REACH. WILL CONTINUE TO MONITOR.
[2021-10-29 05:50] LABS: Albumin, Blood 2.2 g/dL (3.4-5.0); Anion Gap 7 mmol/L (6-16); Blood Urea Nitrogen 25 mg/dL (8-24); Bun/Creatinine Ratio 24.5 (12.0-20.0); CO2, Blood 27 mmol/L (21-32); Calcium, Blood 8.6 mg/dL (8.5-10.1); Chloride, Blood 106 mmol/L (98-108); Creatinine, Blood 1.02 mg/dL (0.40-1.00); Glomerular Filtration Rate 53 (60-); Glucose, Blood 210 mg/dL (70-99); Phosphorus, Blood 3.7 mg/dL (2.5-4.9); Potassium, Blood 4.8 mmol/L (3.5-5.5); Sodium, Blood 140 mmol/L (136-145)
--- NOTE | 2021-10-29 17:24 | NUR ---
SHIFT SUMMARY PT IS AAO TO SELF AND SITUATION ONLY. CONFUSED AND FORGETFUL, PT IS VERY SOCIAL TO STAFF. PT REQUIRES CONSTANT REDIRECTION AND EDUCATION, PT YELLS FOR ASSISTANCE, EDUCATED IN PROPER USE OF CALL LIGHT. PT IS CONTINENT / INCONTINENT, ATTENDS IN PLACE. DENIES DYSURIA. NO C/O PAIN OR ANY DISCOMFORT THIS SHIFT. PT REMAINS ON 3LPM O2 VIA NC, SATS >92%. BED AT LOWEST POSITION W/ ALARM ON FOR SAFETY, CALL LIGHT WITHIN REACH.
[2021-10-30 04:54] LABS: Hematocrit 30.3 % (33.0-51.0); Hemoglobin 9.5 g/dL (11.5-16.0)
[2021-10-30 05:40] LABS: Albumin, Blood 2.1 g/dL (3.4-5.0); Anion Gap 5 mmol/L (6-16); Blood Urea Nitrogen 24 mg/dL (8-24); Bun/Creatinine Ratio 24.9 (12.0-20.0); CO2, Blood 29 mmol/L (21-32); Calcium, Blood 8.3 mg/dL (8.5-10.1); Chloride, Blood 108 mmol/L (98-108); Creatinine, Blood 0.96 mg/dL (0.40-1.00); Glomerular Filtration Rate 57 (60-); Glucose, Blood 102 mg/dL (70-99); Phosphorus, Blood 3.6 mg/dL (2.5-4.9); Potassium, Blood 4.8 mmol/L (3.5-5.5); Sodium, Blood 142 mmol/L (136-145)
--- NOTE | 2021-10-30 06:27 | NUR ---
SHIFT SUMMARY NO ACUTE EVENTS OVERNIGHT. PT SLEPT INTERMITENTLY THROUGH THE NIGHT. PT REMAINS CONFUSED AND FORGETFUL. ALL MEDS WERE GIVEN PER EMAR. BED IN LOWER POSITION AND CALL LIGHT IN REACH . WILL CONTINUE TO MONITOR.
--- NOTE | 2021-10-30 17:53 | NUR ---
SHIFT SUMMARY; PATIENT HAD TO BE ENCOURAGED TO AMBULATE TO THE BATHROOM. SHE IS IMPULSIVE AND NEEDS TO BE WATCHED VERY CAREFULLY SHE SITS DOWN VERY FAST AND IS NOT ALWAYS CLOSE ENOUGH TO CHAIR OR BED OR COMMODE. PATIENT YELLING OUT REPEATEDLY ATTEMPT AT EDUCATION TO USE CALL LIGHT IS UNSUCCESSFUL. SHE COMPLAINS THAT DURING THE DAY SHE LOST HER GLASSES. SHE REFUSES TO ALLOW STAFF TO LOOK IN HER BEDDING. PATIENT SAYS SHE IS NOT HAPPY WITH HER DIET IT IS PUREED. SHE IS NOW ON THIN LIQUIDS WITH A SPOON PER SPEECH TODAY. WILL REMAIN AVAILABLE FOR THIS PAITENT FOR ANY WANTS OR NEEDS UNTIL HAND OFF AT SHIFT CHANGE. MORRIS SARAVIA RN
--- NOTE | 2021-10-31 04:10 | NUR ---
SHIFT SUMMARY NO ACUTE EVENTS THROUGH THE NIGHT . PT IS AWAKE AND ALERT TO HERSELF AND DISORIENTED.PT REMAINS ON 3L NC. PT WENT TO BSC WITH TWO PEOPLE ASSIST.PT REMAINS ON 3L NC. PT WENT TO THE COMMODE WITH 2 PEOPLE ASSIST.NO NEW CONCERNS FOR THE NIGHT.ALL MEDS GIVEN PER EMAR. PT IS RESTING COMFORTABLY AT THIS TIME. BED IN LOWER POSITION AND CALL LIGHT IN REACH.WILL CONTINUE TO MONITOR.
--- NOTE | 2021-10-31 08:03 | NUR ---
pt awake, asking for coffee, a/o to self, states she wont get up without assist, pleasant and cooperative with care, follows commands well, denies pain, is excited about the snow, lungs are clear in upper [place], dim in bases, occ wheezing, hrr, trace edema to ankles, ppp+1, cap refill <3sec, vs stable, afebrile, iv site to rfa, site clear and patent, btx4, abd flat soft nontender, voids without diff, skin c/w/d, maew, shanika, call light in reach.
--- NOTE | 2021-10-31 18:21 | NUR ---
Lora complains she is hungry and wants crackers, talks to herself most of the day, is very childlike. she has been given extra snacks throughout the day. call light in reach.
--- NOTE | 2021-11-01 04:44 | NUR ---
SHIFT REPORT: THE PT IS A/0X2-3. HER LUNGS ARE WET W/CRACKLES BILAT, BUT HER O2 SATS REMAIN ABOVE 92% ON 3L. THE PT IS ON A PUREED DIET & PT'S MEDS NEED TO BE CRUSHED.
--- NOTE | 2021-11-01 11:17 | NUR ---
IV IN PTS LEFT AC
--- NOTE | 2021-11-01 16:32 | NUR ---
PT IS A/OX2 SELF AND PLACE. THE PT IS HIGHLY ANXIOUS. TTCHAS THE PT WORKED WITH THE PHYSICAL THERAPIST AND AFTERWARD STARTED TO HYPERVENTALATE YELLING THAT SHE COULDNT GET AIR. YELLING FOR THE DOCTOR. SAYING THAT SHE WAS GOING TO . A CALL WAS MADE TO DR. MILIAN AND A 1 TIME ORDER FOR XTIVAN IV WAS GIVEN. THE PT WAS ABLE TO RELAX AND ABLE TO SLEEP FOR A SHORT TIME. THE PTS O2 SAT'S WERE ABOVE 95% DURING AND AFTER THE PTS CRISIS. A BREATHING TX WAS ALSO GIVEN. THIS EVENING THE SPEECH THERAPIST WORKED WITH THE PT AND WAS UNABLE TO ADVANCE HER DIET FROM PUREE, THIS MADE THE PT UPSET AND SHE HAS BEEN YELLING OUT SINCE, THAT SHE IS NOT GETTING ANY FOOD. PT SEEMS TO BE BREATHING EAILY NOW, ON 2L/MIN O2 VIA NC. CALL LIGHT IN REACH. WILL CONTINUE TO MONITOR AND ASSESS FOR CHANGES
--- NOTE | 2021-11-02 04:20 | NUR ---
SHIFT SUMMARY NALLELY: NALLELY RECEIVED HER MEDS AT 2100 WAS A BIT RESTLESS AND COMPLAINING ABOUT DIFFERENT THINGS FROM THE TEMPERATURE OF THE ROOM TO HER HUGER. I GAVE HER SOME APPLE SAUCE. SHE ENDED UP SLEEPING AFTER MIDNIGHT. SPO2 WAS 97-100% ON 2L NC ALL SHIFT.
--- NOTE | 2021-11-02 10:58 | NUR ---
Pt sitting in chair on 1 L O2 via NC. Pt appears anxious as evidenced by continued statements of going home tomorrow. Pt difficult to keep on topic of discussion. Pt reports plan to go home with the help of her friend Shannon. Spoke with Dr Mosqueda and discussed case. Dr Mosqueda will place consult for Dr Barr to determine Pt's compitence. Pt is working with ST with recommendations for puree diet at this time. Pt is requesting crackers which is not appropriate at this time. Spoke with Primary RN Carlos Manuel and discussed case. Pt tends to panic with transfers and does not ambulate due to this reason. Pt requires assistance with transfers, bathing and dressing. Pt also experiences stress incontinence. Pt's appetite is good. Plan: Will F/U with friends or family after Dr Barr's consult. Palliative Care will remain available.
--- NOTE | 2021-11-02 16:16 | NUR ---
PT IS A/OX3, PLEASANT AND COOPERATIVE. [place]. THE PT THIS AM REPORTED THAT SHE SLEPT VERY WELL LAST NIGHT AND THAT SHE FELT BETTER TODAY AND WANTED TO ASK THE DOCTOR IF SHE COULD GO HOME. DR. MILIAN SEEN THE PT AN MENTIONED THAT SHE WOULD LOOK INTO POSSIBLY DISCHARGING HER HOME TOMORROW. THE PT CALLED HER FAMILY AND TOLD THEM THAT SHE WAS GOING TO BE DISCHARGED TOMARROW. THE PTS SON CALLED AND SAID THAT IT WAS NOT POSSIBLE FOR HER TO COME BACK TO THEM TOMORROW THEY WOULD NOT BE ABLE TO CARE FOR HER NEEDS. [facility] ALSO CALLED TODAY AND SAID THAT THEY WOULD BE IN CONTACT WITH CARE MANAGEMENT REGARDING SAFE DISCHARGE FOR THE PT. A CALL WAS MADE TO [employer] REGARDING THE TELEPHONE EVENTS THAT TOOK PLACE TODAY CONCERNING THE PT. THE PT WAS UP TO THE CHAIR TODAY AND WORKED WITH THE PHYSICAL AND OCCUPATIONAL THERAPIST. THE PT HAD NO PANIC ATTACKES AND HER O2 HAS BEEN TITRATED TO 1L/MIN, SO FAR O2 SAT'S ARE IN THE MID 90%. CALL LIGHT IN REACH, WILL CONTINUE TO MONITOR AND ASSESS FOR CHANGES
--- NOTE | 2021-11-02 16:25 | NUR ---
Spiritual care visit based on request of patient through floor nurse. Pt. was alert, but in a scattered state of mind. Pt. demonstrating conflicting anxieties over dying or going to a rehab facility. Percieve evidence of impaired decision making ability of pt. Epahthetic listening was used to provide anxiety containment. Pt. made many requests, but only a few could be fulfilled. Prayed with pt. which resulted in diminished anxiety. Pt. requested a rosary, and a large-print bible. Provided rosary and a standard Daniel bible as no large-print versions could be found.
--- NOTE | 2021-11-03 04:33 | NUR ---
SHIFT SUMMARY NALLELY: NALLELY REMAINED STABLE ALL NIGHT. SHE IS NOW ON 1L SPO2 FLUCTUATING BETWEEN 94-94%. SHE WAS TALKING A LOT AT THE BEGINNING OF THE SHIFT THEN SAID SHE WANTED TO GO TO BED. SHE WAS ADMINISTERED HER NIGHT PILLS AND SHE SLEPT MOST OF THE NIGHT. HER SBP WAS CLOSE TO 150 AT 2100 BUT DECRESAED TO 116 BY 0400 AM. SHE REMAINED PHYSIOLOGICALLY STABLE. WAITING FOR PLACEMENT
--- NOTE | 2021-11-03 11:21 | NUR ---
AT TIMES KNOWS WHERE SHE IS, BUT MOSTLY ALERT TO SELF AND FAMILY. NEEDS CONSTANT CUES TO KEEP HER ON TRACK. ONE PERSON ASSIST TO BSC. ON 1 PLM VIA N.C. WITH SATS HIGH 90'S. IV APPEARS TO HAVE BEEN PLACED 10/30/21 AND IS PATENT. [place]. DENIES ANY PAIN OR DISCOMFORT. WCTM
--- NOTE | 2021-11-03 17:26 | NUR ---
ALERT TO SELF. DOES NOT USE CALL LIGHT. TALKS TO STUFFED ANIMAL. YELLS OUT IF SHE NEEDS SOMETHING. HAS NOT C/O ANY PAIN OR DISCOMFORT. ON 1 LPM VIA N.C. GOOD APPETITE. IV PATENT. AWAITING PLACEMENT. TM
--- NOTE | 2021-11-04 04:23 | NUR ---
SHIFT SUMMARY PT VERY TALKATIVE. TALKS TO SELF WHEN NO ONE ELSE IS IN THE ROOM. PT BECOMES MORE WHEEZY WHEN TALKING A LOT. TALKS QUICKLY AND REPEATS QUESTIONS FREQUENTLY. LUNG SOUNDS DIM AND WHEEZY THROUGHOUT. PT REMAINED ON 1 L VIA NC. O2 SATS IN THE HIGH 90'S. OCCASSIONALLY USING FLUTTER VALVE. MILD COUGH AT START OF SHIFT. COUGH SYRUP GIVEN WITH GOOD EFFECT. PT DENIES PAIN. SLEPT THROUGH MUCH OF THE NIGHT. VITAL SIGNS STABLE. PT AWAITING PLACEMENT.
--- NOTE | 2021-11-04 18:04 | NUR ---
SHIFT SUMMARY PATIENT SITTING UP EATING DINNER IN BED. PATIENT ALERT TO SELF AND THAT SHE IS IN THE HOSPITAL. DOES NOT KNOW DATE OR WHAT CITY. CONTINUALLY THINKS THAT SHE IS BEING DISCHARGED TODAY. PATIENT FIXATED ON FINDING HER PINK HAT TODAY. PATIENT GET UP TO BSC WITH 1PA AND WALKER. OCCASIONALLY WILL BECOME ANXIOUS AND REQUEST A BEDPAN. ON 1L O2 VIA NC. VITAL SIGNS STABLE. WILL CONTINUE TO MONITOR
--- NOTE | 2021-11-05 04:52 | NUR ---
SHIFT SUMMARY NALLELY: NALLELY HAD SOME ILLOGICAL TALK AT THE BEGINNING OF THE SHIFT. HER VITALS REMAINED STABLE ALL NIGHT. SHE FELL ASLEEP ABOUT ONE HOUR AFTER RECEIVING HER NIGHT MEDICATIONS.
--- NOTE | 2021-11-05 17:43 | NUR ---
SHIFT SUMMARY PATIENT IS PLEASANTLY CONFUSED. PATIENT ALERT TO SELF AND THAT SHE IS IN THE HOSPITAL BUT THINKS SHE IS GOING HOME TODAY. PATIENT HAS EPISODES OF INCONTINENCE AND HAS ATTENDS IN PLACE. PATIENT IS ABLE TO GET UP TO BSC WITH 1PA AND WALKER. PATIENT WILL SOMETIMES USE CALL LIGHT OR JUST YELL OUT. PATIENT CONTINUALLY TALKING AND TALKS TO SELF. BED IN LOW POSITION WITH BED ALARM ON AND CALL LIGHT IN REACH. WILL CONTINUE TO MONITOR.
--- NOTE | 2021-11-06 03:26 | NUR ---
SHIFT SUMMARY NALLELY: NALLELY VITAL SIGNS WERE STABLE ALL NIGHT, WATCHED NEW EVENTS ON TV, WISHED EVERYONE WHO VISITED HER ROOM HAPPY NEW YEAR. SHE IS STILL ON 1L O2. SEEMS TO BE DOING WELL.
[2021-11-06 13:18] LABS: Albumin, Blood 2.6 g/dL (3.4-5.0); Anion Gap 6 mmol/L (6-16); Blood Urea Nitrogen 33 mg/dL (8-24); Bun/Creatinine Ratio 37.5 (12.0-20.0); CO2, Blood 35 mmol/L (21-32); Calcium, Blood 8.6 mg/dL (8.5-10.1); Chloride, Blood 98 mmol/L (98-108); Creatinine, Blood 0.88 mg/dL (0.40-1.00); Glomerular Filtration Rate >60 (60-); Glucose, Blood 153 mg/dL (70-99); Magnesium, Blood 1.6 mg/dL (1.6-2.4); Phosphorus, Blood 2.1 mg/dL (2.5-4.9); Sodium, Blood 139 mmol/L (136-145)
--- NOTE | 2021-11-06 18:24 | NUR ---
END OF SHIFT SUMMARY: PATIENT DENIED PAIN OR DISCOMFORT THROUGHOUT THE SHIFT. PATIENT UP TO THE CHAIR AND THE BESIDE COMMODE. PATIENT REQUIRED 1-2 ASSIST, FWW, AND GAIT BELT FOR TRANSFERS. PATIENT CALLED APPROPRIATELY. PATIENT HAS MOMENTS OF CONFUSION, BUT HER SHORT TERM MEMORY IS INTACT. PATIENT WILL TALK WITH HERSELF IN THE ROOM. PATIENT HAD MINIMAL ANXIETY THROUGHOUT THE DAY THAT WAS ALLEVIATED WITH EDUCATION, ENCOURAGEMENT AND ADDRESSING NEEDS. PATIENT HAD SOME SHORTNESS OF BREATH WITH ACTIVITY THAT RESOLVED ONCE AT REST. PATIENT REPORTED A HARD STOOL AND DIFFICULTY PASSING THE STOOL. NOTIFIED DR. MCKNIGHT. NEW ORDERS ENTERED.
--- NOTE | 2021-11-07 04:51 | NUR ---
SHIFT SUMMARY NALLELY: NALLELY REMAINED PHYSIOLOGICALLY STABLE ALL NIGHT. SHE WAS PLEASANT, KEPT SAYING THAT SHE CAN'T WAIT TO GO HOME. SHE ASKED FOR COUGH MEDICINE BEFORE MED AND SLEPT MOST OF THE NIGHT.
--- NOTE | 2021-11-07 17:14 | NUR ---
SHIFT SUMMARY PATIENT IS ALERT AND ORIENTED X 2-3 AT TIMES. PLEASANT AND COOPERATIVE WITH CARE. PATIENT IS ON 1 LITER OF O2 VIA NASAL CANNULA SATTING AT 95% PATIENT WILL CALL TO MAKE NEEDS KNOWN. PATIENT WILL TALK TO THEMSELVE AT TIMES. PATIENT COMPLAINED OF INDIGESTION THIS AM. RUKHSANA NOTIFIED. MEDS ORDERED. PATIENT HAS YET TO HAVE ANY FURTHER ISSUES. THIS NURSE WILL CONTINUE TO CARE FOR THE PATIENT UNTIL SHIFT REPORT IS GIVEN TO THE ONCOMING NURSE.
--- NOTE | 2021-11-08 04:52 | NUR ---
PATIENT WAS ALERT AND ORIENTED X3, STABLE VITAL SIGNS, NO ACUTE CHANGES. PATIENT DENIED ANY PAIN AND ONLY WOKE UP TO USE THE BEDSIDE COMMODE. CALL LIGHT WITHIN REACH AND BED DOWN TO THE LOWEST POSITION. WILL CONTINUE TO MONITOR UNTIL HAND OFF.
--- NOTE | 2021-11-08 08:02 | NUR ---
pt sitting up in bed getting vs done, she is tearful about being here, wants to go home, she is confused, a/ox2, cooperative with care, follows commands well, denies pain, lungs are clear t/o, resp even and unlabored, no cough noted, hrr, distant, btx4, abd flat soft nontender, voids without diff, skin c/w/d, rogers, one person assist to bsc, shanika mccloud, call light in reach.
--- NOTE | 2021-11-08 09:09 | NUR ---
pt working with PT, she is getting very animated and loud, but remains cooperative with care, while sitting up on the side of the bed had some audible wheezing until she calmed down. call light in reach.
--- NOTE | 2021-11-08 12:22 | NUR ---
resting quielty in bed, no change or needs. call light in reach.
--- NOTE | 2021-11-08 18:20 | NUR ---
pt had an uneventful day, sitting up for her dinner, tonight and reports she is doing ok, no complaints, or needs, call light in reach.
--- NOTE | 2021-11-09 04:53 | NUR ---
PATIENT WAS ALERT AND ORIENTED X3, STABLE VITAL SIGNS, NO ACUTE CHANGES, PATIENT SLEPT THROUGH THE NIGHT. CALL LIGHT WITHING REACH AND BED DOWN TO THE LOWEST POSITION. WILL CONTINUE TO MONITOR UNTILL HAND OFF.
--- NOTE | 2021-11-09 07:26 | NUR ---
ASSUMED CARE: PANTERA AT BEDSIDE, PT TALKING TO HER. APPEARS TO BE CONCERNED ABOUT CATCHING A VIRUS AND DOESN'T WANT ANYMORE SHOTS. PT THEN STATES SHE DOES NOT HAVE ANYMORE NEEDS OR CONCERNS.
--- NOTE | 2021-11-09 17:28 | NUR ---
SHIFT SUMMARY: PT AWAITING PLACEMENT AT DISCHARGE. DISCHARGE PLANNING AWARE. CHAIR ALARM ON DUE TO PT'S IMPULSIVENESS. PT HARD OF HEARING BUT DENIES PAIN OR CONCERNS. NO ACUTE NEEDS AT THIS TIME
--- NOTE | 2021-11-10 05:40 | NUR ---
PATIENT WAS ALERT AND ORIENTED X2, STABLE VITAL SIGNS, NO ACUTE CHANGES. 2L O2. PATIENT DENIED ANY PAIN. PATIENT SLEPT MOST OF THE NIGHT. CALL LIGHT WITH IN REACH AND BED DOWN TO THE LOWEST POSITION.WILL CONTINUE TO MONITOR UNTIL HAND OFF.
--- NOTE | 2021-11-11 04:11 | NUR ---
PATIENT WAS ALERT AND ORIENTED X2, STABLE VITAL SIGNS, NO ACUTE CHANGES. PATIENT DENIED ANY PAIN. COMPLAINED ABOUT BEING COLD AND THE TEMPERATURE IN HER ROOM WAS ADJUSTED TO SUIT HER NEEDS. PATIENT SLEPT THROUGH THE NIGHT. CALL LIGHT WITHIN REACH AND BED DOWN TO THE LOWEST POSITION. WILL CONTINUE TO MONITOR UNTIL HAND OFF.
--- NOTE | 2021-11-11 17:03 | NUR ---
PT A&OX4. MAKES NEEDS KNOWN APPROPRIATELY. VSS. SOME SOB WITH EXERTION, NO NOTED O2 DESAT. MEDICATED PER JAN. GOOD PO INTAKE, GOOD OUTPUT. SAFETY MEASURES IN PLACE. NO NOTED DISTRESS. PT WAITING PLACEMENT. WILL CONT TO MONITOR.
--- NOTE | 2021-11-12 05:23 | NUR ---
PATIENT WS ALERT AND ORIENTED X3, STABLE VITAL SIGNS, NO ACUT CHANGES, PATINET DENIED ANY PAIN. PATIENT COMPLAINED OF DIFFICULTY BREATHING AND WAS GIVEN A BREATHING TREATMENT. CALL LIGHT WITH IN REACH AND BED DOWN TO THE LOWEST POSITION. WILL CONTINUE TO MONITOR UNTIL HAND OFF.
[2021-11-12 06:06] LABS: Bun/Creatinine Ratio 55.3 (12.0-20.0); Calcium, Blood 8.8 mg/dL (8.5-10.1); Creatinine, Blood 0.92 mg/dL (0.40-1.00); Potassium, Blood 3.9 mmol/L (3.5-5.5)
--- NOTE | 2021-11-12 18:05 | NUR ---
SHIFT SUMMARY PATIENT SITTING UP ON SIDE OF BED EATING DINNER. PATIENT IS AWAITING PLACEMENT. PATIENT HAD PHONE INTERVIEW WITH [facility] TODAY. PATIENT WORKED WITH PT AND WALKED IN THE HALLS WITH FFW. TOLERATED WELL. PATIENT USED CALL LIGHT APPROPRIATLY T/O SHIFT. BED IN LOW POSITION WITH CALL LIGHT IN REACH AND BED ALARM ARMED. WILL CONTINUE TO MONITOR.
--- NOTE | 2021-11-13 05:58 | NUR ---
SHIFT SUMMARY: A&OX2-3 IMPULSIVE, YELLS OUT, NO ADVENTITIOUS HEART SOUNDS, E/U RESP, KONG, WHEEZE, CONT/INCONT. SBA TO BSC. NO SIGINIFICANT EVENTS OVERNGIHT.
--- NOTE | 2021-11-13 19:27 | NUR ---
SHIFT SUMMARY PATIENT AWAITING PLACEMENT. PATIENT [facility] [facility]. ON 1L NC. PATIENT HAS BEEN CALLING HER SON ASKING THAT HE BRING SOME OF HER THINGS SUCH HER MAIL, GLASSES, CELL PHONE. PATIENT'S SON BROUGHT ALL OF HER BELONGINGS TODAY AND LEFT THEM WITH ER SCREENER. WHEN CALLED AND ASKED TO TAKE ALL HER BELONGINGS UNTIL DISCHARGED HE STATED HE DID NOT HAVE A RIDE TO BEAM DYER OPERATOR ALL HER THINGS. PATIENT WAS GIVEN HER BACKPACK AND THE REMAINDER OF HER BELONGINGS WERE GIVEN TO SECURITY AND PUT IN STORAGE. PATIENT IS AWARE. WHILE PATIENT GOING THROUGH HER BACKPACK LOUANN AND DELORISE FOUND. SECURITY NOTIFIED AND PATIENT CONSENTED TO SECURITY OF DISPOSING OF THESE ITEMS. PATIENT UPSET AFTER THIS INCIDENT BUT HAS CALMED BACK DOWN. WILL CONTINUE TO MONITOR.
--- NOTE | 2021-11-14 04:59 | NUR ---
SHIFT SUMMARY A/O X3. MAINTAINING OXYGEN SATURATION WITH 1L NC, NO REPORT OF SOB OR CHEST PAIN. VSS. TOLERATING PO INTAKE, VOIDING WELL. RESTING WELL THIS SHIFT, PLEASANT AND COOPERATIVE. WILL CONTINUE TO MONITOR AND REPORT TO ONCOMING RN. CALL LIGHT IN REACH.
--- NOTE | 2021-11-14 17:16 | NUR ---
SHIFT SUMMARY PATIENT SITTING UP IN CHAIR AWAITING DINNER. PATIENT SAT UP IN CHAIR MOST OF DAY. SBA TO BS. PATIENT COMPLAINING OF COUGH. MEDICATED PER MAR. PATIENT COMPLAINING OF RASH ON RIGHT THIGH, GROIN. APPLIED BARRIER CREAM. PATIENT EXPRESSED THAT SHE WANTS TO GO TO [place] AND FIND HER DAUGHTER COREY. REMINDED PATIENT OF PENDING PLACEMENT TO [facility]. BP HYPOTENSIVE THIS AM, HELP BP MEDICATION. WILL CONTINUE TO MONITOR.
--- NOTE | 2021-11-15 06:04 | NUR ---
71 year old Female with COPD continues on oxygen 2 l nc to keep sats greater than 90%. PT pleasantly confused. Cooperative. Sl impulsive bed alarm on to alert staff at self transfer attempts.Son admitted to crisis unit in ER yesterday with Day RN speaking to HORTICULTURAL FARMER. Medicated at HS to promote restful nights sleep.
--- NOTE | 2021-11-15 18:20 | NUR ---
SHIFT SUMMARY PT A/O X2 AND PLEASANTLY CONFUSED. PT UPSET THAT SHE HAS TO DRINK OUT OF A SIPPY CUP BUT SHE HAS BEEN EDUCATED ON HER ASPIRATION PRECAUTIONS. PT EXCITED TO WORK WITH P.T. AND AMBULATE IN THE [place]. UP WITH A SBA TO THE BSC. MULTIPLE BM'S THIS SHIFT. MEDICATED FOR STOMACH UPSET. AWAITING PLACEMENT. WILL REPORT TO BRETT RUBY.
--- NOTE | 2021-11-16 05:38 | NUR ---
71 year old Female continues cooperative and awaiting placement with DC planning involved. Continues on oxygen 2 l nc compliant with oxygen therapy. Does complain about having to use sippy cup as per ST recommendations. Able to communicate. Fall precautions observed bed alarm on uses bedside commode.
--- NOTE | 2021-11-16 16:49 | NUR ---
SHIFT SUMMARY PATIENT IS ALERT AND ORIENTED TO SELF ONLY. PATIENT IS CURRENTLY AWAITING PLACEMENT. PATIENT HAS BEEN TITRATED DOWN TO 1 LITER OXYGEN AND SATTING ABOVE 95 PERCENT ON TITRATION. PATIENT HAS COMPLAINED OF SIPPY CUPS AGAIN THIS SHIFT. PATIENTS BLOOD PRESSURE HAS BEEN SOFT THIS SHIFT, DR NOTIFIED THIS AM OF LOW BLOOD PRESSURE. NO ACUTE EVENTS THIS SHIFT. VITAL SIGNS REVIEWED. WILL MONITOR UNTIL SHIFT CHANGE.
--- NOTE | 2021-11-18 06:05 | NUR ---
SHIFT SUMMARY PATIENT ALERT AND ORIENTED X2. MEDICATED PER EMAR FOR PAIN. PATIENT SLEPT WELL OVERNIGHT WITH NO ACUTE ISSUES NOTED. BED IN LOWEST POSITION WITH WHEELS LOCKED AND ALARM ON. CALL LIGHT WITHIN REACH. REPORT GIVEN TO ONCOMING RN.
--- NOTE | 2021-11-18 17:25 | NUR ---
PT AOX -3. PERIODS OF FORGETFULNES NOTED. PT REMAINS ON RA, NO DISTRESS NOTED. C/O PAIN TO BLE, MEDICATED PER ORDER, EFFECTIVE OUTCOME VOICED. ASSISTED WITH ADL'S NEEDED. SAFETY PRECAUTIONS MAINTAINED. BED KEPT IN LOWEST POSITION. CALL LIGHT IN REACH.
--- NOTE | 2021-11-19 03:11 | NUR ---
SHIFT SUMMARY PATIENT HAD NO ACUTE CHANGES OBSERVED. AXOX 2-3 FORGETFUL. SBA TO BSC. TAKES MEDICATION X ONE EACH WITH WATER. NO IV ACCESS. REPORTED COUGH AND ROBITUSSIN 10 mL GIVEN FOR COUGH PRN. MELATONIN 5 MG FOR INSOMNIA. BLOOD PRESSURE SOFT THIS SHIFT. DENIES PAIN, SOB, AND N/V. CALL LIGHT IN REACH. BED IN LOWEST POSITION. WILL CONTINUE TO MONITOR UNTIL DAY SHIFT NURSE ASSUMES CARE.
--- NOTE | 2021-11-19 18:37 | NUR ---
SHIFT SUMMARY PT IS AAOX4 BUT DOES GET PLEASANTLY CONFUSED. SHE WAS CALM MOST OF THE DAY BUT GOT A BIT AGGITATED THIS PM AND WAS MEDICATED WITH SEROQUEL 25MG PO X1. SHE DID CALM DOWN AFTERWARDS. SHE HAD A SOFT BP THIS PM BUT THAT HAS BEEN HER TREND OF NORMAL THE LAST FEW DAYS. WAS ASYMTOMMATIC AND NO COMPLAINTS. NAD NOTED, AMBULATES AROUND ROOM WITH ASSISTANCE OF WALKER. HAD PRN BREATHING TREATMENT X 2 TODAY. MEDICATED FOR PAIN X2 WITH TRAMADOL AND GOT RELIEF. CALL LIGHT WITHIN REACH. RESTING IN CHAIR AND WILL CONTINUE TO MONITOR IN CARE UNTIL ONCOMING NURSE ARRIVES.
[2021-11-20 05:07] LABS: Hematocrit 33.3 % (33.0-51.0); Hemoglobin 10.6 g/dL (11.5-16.0); Mean Corpuscular HGB 28.9 pg (26.0-34.0); Mean Corpuscular HGB Conc 31.8 g/dL (31.5-36.5); Mean Corpuscular Volume 91 fL (80-100); Platelet Count 98 K/mm3 (150-400); RDW Coefficient Variation 15.6 % (11.7-14.2); RDW Standard Deviation 51.6 fL (35.1-46.3); Red Blood Cell Count 3.67 M/mm3 (3.80-5.20); White Blood Cell Count 5.59 K/mm3 (4.00-11.30)
--- NOTE | 2021-11-20 05:46 | NUR ---
SHIFT SUMMARY: PT IS A/OX3. SHE REMAINS ON RA, BUT C/O OF SOB WITH ANY EXERTION. SHE IS A SBA W/FWW WITH ENCOURAGEMENT TO THE BATHROOM. SHE CONTINUES TO TAKE HER MEDICATIONS WHOLE WITH SMALL DRINKS FROM HER SIPPY CUP OR OTHER CUP WITH NO STRAW!!
[2021-11-20 05:54] LABS: Albumin, Blood 2.5 g/dL (3.4-5.0); Albumin/Globulin Ratio 0.9 (0.8-1.8); Bilirubin, Total 0.9 mg/dL (0.1-1.0); Bun/Creatinine Ratio 22.6 (12.0-20.0); Creatinine, Blood 1.06 mg/dL (0.40-1.00); Globulin, Blood 2.9 g/dL (2.2-4.0); Potassium, Blood 3.8 mmol/L (3.5-5.5); Thyroid Stimulating Hormone 7.69 uIU/mL (0.360-4.800); Total Protein, Blood 5.4 g/dL (6.4-8.2)
--- NOTE | 2021-11-20 14:19 | NUR ---
DISCHARGE SUMMARY PT PULLED OUT HER OWN IV PRIOR TO DISCHARGE, TELE REMOVED AND SENT BACK TO MONITORING. MEDS FAXED TO [facility]. PT TO MAKE APPOINTMENT WITH PCP HERSELF FOR FOLLOW UP. PT TRANSFERED TO SON'S VEHICLE VIA WHEELCHAIR ALONG WITH PERSOAL BELONGINGS. DISCHARGE EDUCATION AND MED EDUCATION REVIEWED WITH AND SIGNED BY PT.
--- NOTE | 2021-11-20 18:35 | NUR ---
DAY SHIFT SUMMARY 71 YR OLD, PLEASANTLY CONFUSED, [place], SLOW WITH RESPONSES. WAITING FOR PLACEMENT WITH SNF. ON RA, FULL CODE. ORDER PLACED FOR NECK X-RAY D/T COMPLAINT OF NECK PAIN. MEDICATED PER EMAR. CALL LIGHT WITHIN REACH OF PT. STAND BY ASSIST WITH FRONT WHEEL WALKER. NO OTHER ACUTE CHANGES WITH PT THIS SHIFT.
--- NOTE | 2021-11-21 05:12 | NUR ---
SHIFT SUMMARY: PT IS A/OX3. SHE HAD AN EPISODE OF EMESIS AT THE BEGINNING OF THE SHIFT. PO ZOFRAN WAS ORDERED Q4 PRN. N/V HAS RESOLVED. NO OTHER CHANGES TO REPORT. BED IS IN LOWEST POSITION AND CALL LIGHT IS WITHIN REACH.
--- NOTE | 2021-11-21 16:45 | NUR ---
DAY SHIFT SUMMARY 71 YR OLD FEMALE, PLEASANTLY CONFUSED, [place], WAITING FOR SNF PLACEMENT. SLOW TO RESPOND. STANDBY ASSIST WITH FRONT WHEEL WALKER. ON RA. TAKES MEDS WHOLE WITH WATER, NO STRAWS. A/O X2-3. NO ACUTE CHANGES WITH THIS PT THIS SHIFT. CALL LIGHT WITHIN REACH, ABLE TO CALL APPROPRIATELY.
--- NOTE | 2021-11-22 05:07 | NUR ---
SHIFT SUMMARY: PT IS A/OX3. NO C/O OF PAIN THAT WERE OUT OF HER TOLERABLE LEVELS. PT IS A SBA TO THE BR AND USES CALL LIGHT APPROPRIATELY. WE'LL CONTINUE TO MONITOR THE REMAINDER OF THE NOC SHIFT.
--- NOTE | 2021-11-22 08:00 | NUR ---
CALLED DR BAUMANN- PT SBP 89 SPOKE ABOUT WHAT CARDIAC MEDS THE DOCTOR WANTS THE PT TO RECIEVE. RECIEVED NEW PARAMETERS FOR ALL MEDS ORDERED TO HOLD LASIX, GIVE AMIODORONE AND HOLD BETA MARYBEL UNTIL A BP RECHECK THIS AFTERNOON. PT IS NOT SYMPTOMATIC SBP HAS BEEN IN THE 90'S SO THIS IS NOT GREATLY DIFFERENT FROM THE PT BASELINE BP, JUST A LITTLE LOWER. WILL CTM AND CALL DR AGAIN IF PT BECOMES SYMPTOMATIC.
--- NOTE | 2021-11-22 14:00 | NUR ---
BP RECHECK SHOWS SBP 85 WILL CONTINUE HOLDING BETA MARYBEL PER PARAMETERS AT THIS TIME.
--- NOTE | 2021-11-22 16:40 | NUR ---
SHIFT SUMMARY- PT ALERT AND ORIENTED TO SELF, PLACE AND SITUATION. PT SPEAKS VERY LOUDLY AT BASELINE. SHE C/O HARD STOOLS AND REQUESTED A STOOL SOFTENER, MEDICATED PRN. SBP RUNNING BELOW [address] MALDONADO, PT ASYMPTOMATIC FOR ORTHOSTATIC SYMPTOMS. PT PLEASENT BUT A LITTLE IMPULSIVE, WITH LOW BP'S BED AND CHAIR ALARMS ARE SET TO PREVENT FALLS. PT IN BED, CALL LIGHT IN REACH NO S&S OF DISTRESS AT THIS TIME. WILL CTM AND PASS ON IN BEDSIDE REPORT TO NIGHT RN.
--- NOTE | 2021-11-23 06:03 | NUR ---
SHIFT SUMMARY PATIENT ALERT AND ORIENTED X2. HAD NO COMPLAINTS OF PAIN. MEDICATED PER EMAR FOR COUGH. BREATHING TREATMENTS PER RT. NO ACUTE ISSUES NOTED OVERNIGHT. BED IN LOWEST POSITION WITH WHEELS LOCKED AND ALARM ON. CALL LIGHT WITHIN REACH. REPORT GIVEN TO ONCOMING RN.
--- NOTE | 2021-11-23 16:38 | NUR ---
SHIFT SUMMARY- PT IS ALERT AND ORIENTED TO SELF. PT BECAME A LITTLE ANXIOUS TODAY WHILE SHE WAS WALKING WITH PHYSICAL THERAPY. SOME QUICK INSTRUCTIONS ABOUT BREATHING IN THROUGH THE NOSE OUT THEROUGH THE MOUTH SEEMED TO REDUCE THE INITIAL PANICK AND THE PT WAS ABLE TO WALK BACK TO HER ROOM. ONCE SHE WAS BACK IN HER ROOM AND IN THE BED SHE EVENTUALLY STOPPED THE LABORED WHEEZY BREATHING, AND STATED SHE DIDNT FEEL SHORT OF BREATH ANY MORE BUT REQUESTED A BREATHING Tx. PT IS CURRENTLY SITTING UP IN BED CALL LIGHT IN REACH BED ALARM SET FOR PT SAFETY, NO S&S OF DISTRESS AT THIS TIME WILL CTM.
--- NOTE | 2021-11-24 03:48 | NUR ---
ROLLER PICKER SUMMARY PATIENT HAD A FAIR SHIFT, HER VITALS ARE STABLE. SHE HAD HER PRN COUGH MED, AND STOOL SOFTENER. NO OTHER COMPLAINTS LODGED. WILL CONTINUE TO MONITOR HER.
[2021-11-24 05:17] LABS: Anion Gap 7 mmol/L (6-16); Blood Urea Nitrogen 15 mg/dL (8-24); Bun/Creatinine Ratio 17.1 (12.0-20.0); CO2, Blood 27 mmol/L (21-32); Calcium, Blood 8.4 mg/dL (8.5-10.1); Chloride, Blood 110 mmol/L (98-108); Creatinine, Blood 0.88 mg/dL (0.40-1.00); Glomerular Filtration Rate >60 (60-); Glucose, Blood 91 mg/dL (70-99); Potassium, Blood 4.5 mmol/L (3.5-5.5); Sodium, Blood 144 mmol/L (136-145)
--- NOTE | 2021-11-24 17:58 | NUR ---
SHIFT SUMMARY NO ACUTE CHANGES THIS SHIFT. PT STILL WHEEZY, COUGHING, AND SOB WHEN WALKING TOT HTE BATHROOM. SATS ARE AT 98%. RESPIRATORY CALLED TO DO A BREATHING TREATMENT THIS AM. NO OTHER COMPLAINTS OF PAIN THIS SHIFT. SHE REFUSED HER LIDOCAINE PATCH THIS AM SHE SAID IT WAS TOO STICKY AND THOUGHT MAYBE IT WAS MAKING IT HARD TO BREATHE DESPITE EXPLANATION THAT IT WAS FOR PAIN. SHE ALSO REFUSED ANY BOWEL CARE TODAY SHE SAID SHE DIDN'T HAVE TO GO AND DIDN'T NEED IT. WILL PASS ON TO NUCLEAR FUELS RECLAMATION ENGINEER AND CONTINUE TO MONITOR.
--- NOTE | 2021-11-25 04:21 | NUR ---
QUALITY ANALYST SUMMARY PATIENT HAD A FAIR SHIFT. SHE HAD NEEDED BREATHING TREATMENT, STOOL SOFTER AND COUGH SYRUP, EMAR. SAFETY MEASURES IN PLACE. NO OTHER COMPLAINTS WILL CONTINUE TO MONITOR HER.
--- NOTE | 2021-11-25 07:07 | NUR ---
Pt is sitting up in bed, audible wheezing upon exertion of repositioning self in bed. States last BM was 2 days ago, and that it was hard. Encouraged OOB to chair for meals. Denies any pain.
--- NOTE | 2021-11-25 09:14 | NUR ---
Pt declined out of bed at this time and before breakfast. STates she is waiting to see the doctor and then she will take a shower. States she is eagerly waiting for a room to open up so that she can be discharged.
--- NOTE | 2021-11-25 15:10 | NUR ---
Independently to the bathroom with simple standby. She is sitting up in the chair, eating a PB&J sandwich. No complaints. STates she is tired of waiting for a room to open up for her to get to [facility].
--- NOTE | 2021-11-26 01:49 | NUR ---
PASTE MIXING SUPERVISOR SUMMARY PATIENT HAD A FAIR SHIFT. SHE ALERT AND PLEASANT. SHE GOT NEEDED COUGH MEDICATION AND MELATONIN. SHE DID NOT LODGE ANY OTHER COMPLAIN, HER VITALS ARE WNL. WILL CONTINUE TO MONITOR HER.
--- NOTE | 2021-11-26 17:31 | NUR ---
DAY SHIFT SUMMARY 71 YR OLD PLEASANTLY CONFUSED FEMALE PT. HX OF DEMENTIA. WAITING PLACEMENT WITH SNF. PT IS ON RA WITH NEBULIZER TX NEEDED. SHE HAS REQUESTED AND RECEIVED 2 NEBULIZER TX TODAY WITH RT. CALL LIGHT WITHIN REACH OF PT. NO ACUTE CHANGES THIS SHIFT
--- NOTE | 2021-11-27 04:40 | NUR ---
AUTOMOTIVE BRAKE SPECIALIST SUMMARY PATIENT HAD A FAIR SHIFT. SHE HAD HER NIGHT MEDS AND ALSO GOT PRN MELATONIN AND COUGH SYRUP. HER V/S WERE STABLE. WILL CONTINUE TO MONITOR SHE SIS NOT LODGE ANY NEW COMPLAINTS.
--- NOTE | 2021-11-27 17:25 | NUR ---
PT AOX2 WITH CONFUSION. PT IS AN ONE PERSON TO WALKER AND WILL CALL FOR HELP USING CALL LIGHT OR CALLING OUT. PT HAPPY TO SIT IN BED AN WATCH TV. NO ACUTE CHANGES AT THIS TIME WILL CONTINUE TO MONITOR CALL LIGHT WITHIN REACH.
--- NOTE | 2021-11-28 17:37 | NUR ---
NO ACUTE CHANGES AT THIS TIME. PT WILL USE CALL LIGHT IF SHE NEEDS RESTROOM. BED ALARM IS IN PLACE IN CASE PT WOULD TRY TO GO ON HER OWN. PT DOES WELL A ONE PERSON STANDBY ASSIST TO RESTROOM. PT CONTINUES TO NEED SOME RT TREATMENTS FOR HER WHEEZING. NO DISTRESS NOTED AT THIS TIME CALL LIGHT WITHIN REACH.
--- NOTE | 2021-11-29 16:20 | NUR ---
Spiritual care visit conducted. Patient is lying in bed and alert. Patient immediately tells me about the vision that she has when she prays of God coming to her and also the face of a girl named Tish that recently that was a friend of her sons. The pt ask me to pray that Tish would not be in her prayers, she also asks me to pray that she would have continued strength. I gladly provide prayer. Patient tells me stories of how she came to her juan in [place] and how she is tight with God. She emphasizes that her relationship with God as the most important thing in her world. I provide therapeutic listening and a calming presence. Patient responds well and shows signs of increased peace in her prayers and in her mind. I will continue to remain available.
--- NOTE | 2021-11-29 16:49 | NUR ---
NO ACUTE CHANGES AT THIS TIME. PT AOX2 AND COOPERATIVE OF CARE. PT CONTINUES TO HAVING WHEEZING AUDIBLE WHEN STANDING NEXT TO HER. PT TREATED BY RT PER EMAR FOR WHEEZING. PT STANDBY ASSIST TO RESTROOM WITH WALKER. BED ALARM IN PLACE AND CALL LIGHT WITHIN REACH. PT DOES USE CALL LIGHT AT TIMES, BUT WILL VERBALLY CALL OUT WELL. WILL CONTINUE TO MONITOR.
--- NOTE | 2021-11-30 04:34 | NUR ---
SHIFT SUMMARY PT COMPLAINED OF HEADACHE. WENT IN TO TAKE HER TYLENOL AND PT WAS ASLEEP HEAD UNDER THE BLANKET AND SNORING. PT CALLED 30 MIN LATER AND GIVEN MEDICATION PER EMAR. NO OTHER COMPLAINTS AT THAT TIME. PT CONTINUES TO WHEEZE WHEN AMBULATING. PT ON 2L O2 FOR COMFORT. A&O X 2-3. PT MAKES STRANGE STATEMENTS AT TIMES THAT DO NOT MAKE MUCH SENSE. PT COOPERATIVE WITH CARE. CALL LIGHT WITHIN REACH. WILL CONTINUE TO MONITOR.
--- NOTE | 2021-11-30 17:51 | NUR ---
SHIFT SUMMARY PATIENT MEDICATED FOR PAIN X1. PATIENT DENIES NAUSEA AND SHORTNESS OF BREATH. PATIENT IS A&O X2-3. PATIENT IS A SBA TO THE [facility] [place] [facility]. PATIENT WORKED WITH PT TODAY AND WAS ABLE TO AMBULATE IN THE HALLWAY. PATIENT WAS TITRATED TO ROOM AIR, MAINTAINING SATS ABOVE 95%. PATIENT IS EATING AND DRINKING WELL. PATIENT IS PLEASANT AND COOPERATIVE WITH CARE. PATIENT IS AWAITING PLACEMENT, POSSIBLY TO [facility] PER THE WOOD BOAT BUILDER SUPERVISOR NOTE.
--- NOTE | 2021-12-01 04:35 | NUR ---
SHIFT SUMMARY PT SLEPT WELL THIS EVENING. REMAINED ON RA. SOME SOB AND WHEEZING WITH EXERTION. PLEASANT AND COOPERATIVE THROUGHOUT THE NIGHT. VITAL SIGNS STABLE. NO ACUTE EVENTS TONIGHT. WILL CONTINUE TO MONITOR.
--- NOTE | 2021-12-01 18:42 | NUR ---
SHIFT SUMMARY NO ACUTE CHANGES THIS SHIFT. PT REFUSED LIDOCAINE PATCH AGAIN TODAY AND DR BARNES. PT ONLY ASKED FOR COUGH MEDICINE ONCE TODAY. SHE IS COMPLAINING THAT HER LASIX IS MAKING HER HAVE TO PEE AND THAT "TOMMORROW IM GOING TO TELL THEM I DON'T WANT IT!" WILL REAPPROACH TOMORROW. WILL CONTINUE TO MONITOR.
--- NOTE | 2021-12-02 05:31 | NUR ---
SHIFT SUMMARY PT RESTED WELL THROUGH THE NIGHT. ALERT AND ORIENTED, ABLE TO MAKE NEEDS KNOWN. COOPERATIVE WITH PLAN OF CARE. SATS >95% ON ROOM AIR. NO TELE, NO CHEST PAIN. STAND BY ASSIST TO BSC WITH FWW. HESITANT TO TAKE ANY MEDS BECAUSE SHE FEARS THEY ALL MAKE HER URINATE FREQUENTLY. WANTS TO BE ABLE TO SLEEP THROUGH THE NIGHT. VSS, BP A LITTLE LOW, BUT STABLE. HAVING SOME WHEEZING THIS AM, SHORTNESS OF BREATH AFTER AMBULATING TO BATHROOM, RESPIRATORY CALLED FOR BREATHING TREATMENT, PT FEELS MUCH BETTER. CALL LIGHT WTIHIN REACH, BED IN LOWEST POSITION. WILL CONTINUE TO MONITOR.
--- NOTE | 2021-12-02 18:10 | NUR ---
SHIFT SUMMARY NO ACUTE CHANGES FOR PT THIS SHIFT. CONTINUE TO WAIT FOR PLACEMEN. WILL CONTINUE TO MONITOR.
--- NOTE | 2021-12-03 04:52 | NUR ---
SHIFT SUMMARY PT IS A 71 Y/O FEMALE, ADMITTED FOR COPD EXACERBATION. SHE IS A&0 X 2, SBA TO THE BATHROOM. SHE WAS MEDICATED ONCE FOR BACK PAIN WITH PRN TYLENOL. NO C/O ACUTE NAUSEA OR SOB. LUNG SOUNDS COARSE WHEEZE T/O. VITAL SIGNS STABLE. NO ACUTE CHANGES IN PT CONDITION NOTED DURING THE NIGHT. WILL CONTINUE TO MONITOR AND TREAT PER EMAR UNTIL HAND OFF TO DAY SHIFT RN.
[2021-12-03 10:34] LABS: Hematocrit 35.6 % (33.0-51.0); Hemoglobin 10.9 g/dL (11.5-16.0); Mean Corpuscular HGB 27.9 pg (26.0-34.0); Mean Corpuscular HGB Conc 30.6 g/dL (31.5-36.5); Mean Corpuscular Volume 91 fL (80-100); Platelet Count 196 K/mm3 (150-400); RDW Standard Deviation 50.2 fL (35.1-46.3); White Blood Cell Count 6.34 K/mm3 (4.00-11.30)
[2021-12-03 11:05] LABS: Bun/Creatinine Ratio 20.9 (12.0-20.0); Calcium, Blood 8.6 mg/dL (8.5-10.1); Creatinine, Blood 1.1 mg/dL (0.40-1.00); Potassium, Blood 3.8 mmol/L (3.5-5.5); Thyroid Stimulating Hormone 7.91 uIU/mL (0.360-4.800); Thyroxine (T4) 9.5 ug/dL (4.8-13.9)
--- NOTE | 2021-12-03 18:34 | NUR ---
SHIFT SUMMARY NOT ACUTE CHANGED THIS SHIFT. PT STILL COMPLAINS OF NECK PAIN. LIDOCAINE PATCH REINSTATED FOR TOMORROW (12/03) AM. WILL CONTINUE TO MONITOR.
--- NOTE | 2021-12-04 19:02 | NUR ---
SUMMARY- PT A/O X2-3, ROOM AIR HAS FREQ WHEEZE, PRN ALBUTEROL. TOLERATING FOOD AND FLUIDS. BP MARGIONALLY LOW, HELD METOPROLOL THIS AM. DIURESING, CONT/INCONT. ULTRAM FOR CERV NECK PAIN. LIDO PACTCH TO NECK ALL HELPFUL FOR NECK PAIN. PLAN FOR [facility] ONCE PAY ARRANGEMANTS SET UP.
--- NOTE | 2021-12-05 06:40 | NUR ---
SHIFT SUMMARY PT IS A 71 Y/O FEMALE, ADMITTED FOR COPD EXACERBATION AND CURRENTLY AWAITING PLACEMENT. SHE IS A&O X 2, VERY [place], 1PA TO THE BATHROOM. PT WAS PLACED ON 2L O2 VIA NC THIS AM FOR TO BRING O2 SATS UP FROM 88 TO 90%. VITAL SIGNS OTHERWISE STABLE. NO C/O ACUTE PAIN OR NAUSEA. NO ACUTE CHANGES IN PT CONDITION NOTED DURING THE NIGHT. WILL CONTINUE TO MONITOR AND TREAT PER EMAR UNTIL HAND OFF TO DAY SHIFT RN.
--- NOTE | 2021-12-05 17:51 | NUR ---
SUMMARY- PT A/O X3, PLEASANTLY CONFUSED. KNOWS LIMITS AND USES CALL LIGHT. SBA WALKER BATHROOM, STEADY ON FEET WITH GOOD STRENGTH. PAIN IN NECK CONTROLLED. ULTRAM IN AM WITH GOOD EFFECT. LIDO PATCH HELPFUL WELL. AWAITING PLACEMENT TO [facility] PENDING 2ND PAY SET UP. HAD A BM TODAY. TOLERATING FOOD AND FLUIDS.
--- NOTE | 2021-12-06 06:59 | NUR ---
SHIFT SUMMARY PT IS A 71 Y/O FEMALE, ADMITTED FOR COPD EXACERBATION AND CURRENTLY AWAITING PLACEMENT. SHE IS A&O X 2, VERY [place]. 1PA TO THE BATHROOM. CURRENTLY ON 2L O2 VIA NC, SATTING > 90%. VITAL SIGNS OTHERWISE STABLE. NO C/O ACUTE PAIN, NAUSEA OR SOB. NO ACUTE CHANGES IN PT CONDITION NOTED DURING THE NIGHT. WILL CONTINUE TO MONITOR AND TREAT PER EMAR UNTIL HAND OFF TO DAY SHIFT RN.
--- NOTE | 2021-12-07 04:45 | NUR ---
SHIFT SUMMARY NO ACUTE CHANGES OVERNIGHT. ADMITTED FOR COPD EXAC, NOW WAITING FOR PLACEMENT. PT REPORTS NECK PAIN, MEDICATED WITH ULTRAM. VSS. MILDLY HYPOTENSIVE BUT ASYMPTOMATIC. DENIES DIZZINESS, CHEST PAIN. PT ON 2L N/C. AMBULATES WITH FWW AT [facility]. NO NEW CONCERNS OVERNIGHT. WILL CONTINUE TO MONITOR, CALL LIGHT WITHIN REACH. WILL GIVE AN UPDATE TO ONCOMING NURSE.
--- NOTE | 2021-12-07 14:38 | NUR ---
SHIFT SUMMARY PT REMAINS MEDICALLY STABLE WAITING FOR D/C TO [facility]ISON [facility]. PT DECLINED TO GET UP TO CHAIR FOR BREAKFAST, STATING SHE WAS COLD. PT UP WITH 1P ASSIST LATER IN AM. PT UP TO BTHRM WELL NEEDED; CONTINENT OF BOWEL AND BLADDER. PT COUGHING EARLIER TODAY, REQUESTING RT TX; RT NOTIFIED. PT REPORTED BEING SOB X1, AFTER TALKING TO LONG. C/O PAIN TO NECK PRIOR TO BREAKFAST; LIDOCAINE PATCH PLACED. PT LATER REPORTED IT DID HELP. CALL LT IN REACH, ABLE TO MAKE NEEDS KNOWN.
--- NOTE | 2021-12-08 05:26 | NUR ---
INK TECHNICIAN SUMMARY PT AWAITING BRAIDED BAND ASSEMBLER PLACEMENT. SHE WAS MEDICATED X1 WITH REMERON FOR SLEEP, X1 WITH SYRUP FOR COUGH, AND X1 WITH ULTRAM FOR CHRONIC NECK PAIN. PT HAS BEEN SLEEPING THROUGHOUT THE SHIFT. SHE IS A ONE PERSON SBA WITH FWW TO THE RESTROOM. SHE IS ALERT AND ORIENTED X2-3, SOMETIMES CONFUSED, BUT VERY PLEASANT. PT VERY WHEEZY AFTER AMBULATION TO RESTROOM BUT IMPROVES AFTER BREATHING TREATMENT.
--- NOTE | 2021-12-08 18:25 | NUR ---
patient is awake,alert and oriented times three.pain control. patient is on oxygen at 3L NC sating 100%. no acute ditress noted.
--- NOTE | 2021-12-09 04:30 | NUR ---
PATIENT SLEPT WELL LAST NIGHT AFTER HS MEDICATIONS. SHE WAS ABSOLUTELY PANICKED IN THE EVENING AFTER WALKING BACK FROM BATHROOM AND FEELING SO SOB. SO WE SET HER UP WITH A BSC AND INSISTED SHE CALL FOR ASSIST TO GET IN AND OUT OF BED. ALARM WAS SET, BUT SHE ONLY CALLED ONCE TO GET UP, THEN NEVER GOT OOB AGAIN. BREATH SOUNDS ARE SCATTERED RHONCHI WITH A STRONG BARKING COUGH. PATIENT STATES SHE IS ABLE TO GET SPUTUM UP WITH THE GUAFINESIN LIQUID WHICH WAS GIVEN AT HS. NO COMPLAINTS OF CHEST PAIN/PRESSURE OR DISCOMFORT
--- NOTE | 2021-12-09 17:46 | NUR ---
SHIFT SUMMARY PT HAS NOT HAD OXYGEN ON FOR MOST OF THE DAY AND FELT COMFORTABLE WALKING TO THE BATHROOM AND NOT USING THE BEDSIDE COMMODE. SHE HAS RECEIVED SEVERAL BREATHING TREATMENTS TODAY AND HAD ONLY ONE COMPLAINT OF NECK PAIN, MEDICATED PER JAN. HOPEFUL TO DISCHARGE ON MONDAY. WILL CONTINUE TO MONITOR.
--- NOTE | 2021-12-10 04:24 | NUR ---
NALLELY SLEPT WELL GETTING OOB ONLY ONCE TO USE THE BATHROOM. THERE WAS NO ANXIETY VISUALIZED DURING AMBULATION TO AND FROM. SHE IS VERY PLEASANTLY CONFUSED BUT COOPERATIVE WITH CARE. LUNG SOUNDS VERY DIM IN BILAT BASES WITIH SCATTERED CRACKLES THROUGHOUT AND LOOSE SOUNDING NON PRODUCTIVE COUGH. STARTED MUCINEX 1200MG DOSE LAST NIGHT
--- NOTE | 2021-12-10 17:38 | NUR ---
SHIFT SUMMARY PT IS RESTING COMFORTBALE IN BED TODAY SHE HAS DONE WELL WITHOUT HER OXYGEN ON WALKING BACK AND FORTH TO THE BATHROOM WITHOUT IT. SHE HAS HAD NO PAIN TODAY AND MINIMAL SHORTNESS OF BREATH. STILL A HARSH COUGH AND WHEEZING UPON EXERTION. WILL CONTINUE TO MONITOR.
--- NOTE | 2021-12-11 04:16 | NUR ---
SHIFT SUMMARY ADMITTED FOR COPD EXACERBATION. FULL CODE. PLAN IS FOR PLACEMENT, HOPEFULLY ON MONDAY. SHE IS VERY [place]. SHE IS ON ELIQUIS. SHE IS INDEPENDENT W/FWW - BRP. ALTHOUGH OCCASIONALY SHE REQUESTS STANDBY ASSISTANCE. SHE CALLS OUT OCCASIONALY. SHE IS REDIRECTABLE. SHE IS PLEASANT AND COOPERATIVE W/CARE.
--- NOTE | 2021-12-11 18:50 | NUR ---
END OF SHIFT SUMMARY: PATIENT REPORTED SOME NECK PAIN AT THE BEGINNING OF THE SHIFT. PATIENT REPORTED RELIEF WITH LIDOCAINE PATCH AND DENIED NEED FOR FURTHER INTERVENTION. PATIENT UP TO THE BATHROOM AND CHAIR THROUGHOUT THE DAY. PATIENT STEADY ON FEET. PATIENT USES FWW CORRECTLY. PATIENT VERY SHORT OF BREATH AT TIMES AFTER AMBULATION. PATIENT USED PURSED LIP BREATHING TO BRING HER RESPIRATIONS UNDER CONTROL. PATIENT AT 92-96% ON ROOM AIR. AT THE BEGINNING OF SHIFT THE PATIENT HAD AUDIBLE WHEEZES. ONCE PATIENT WAS UP SITTING AND HAD RECEIVED RT TREATMENTS, THE AUDIBLE WHEEZES DIMINISHED.
--- NOTE | 2021-12-12 00:30 | NUR ---
PT RESTING AT THIS TIME. BED ALARM ON. CALL LT IN REACH.
--- NOTE | 2021-12-12 04:16 | NUR ---
SHIFT SUMMARY: VERY [place]. PLEASANTLY CONFUSED. ON RA. NO COMPLAINTS OF PAIN. MELATONIN GIVEN PER PT REQUEST, PT WANTED TO BE ABLE TO SLEEP. USES A WALKER TO THE BR OR BSC. A SBA. PLAN IS PLACEMENT. PT RESTED WELL. NO ACUTE CHANGES. WILL CONTINUE TO PROVIDE CARE UNTIL SHIFT REPORT.
--- NOTE | 2021-12-12 17:07 | NUR ---
SHIFT SUMMARY PT AXO TO SELF, PLACE AND FOLLOWING DIRECTIONS THOUGH [place]. VSS, THOUGH PT TACHYPNEIC WITH EXERTION. PT HAS HAD NON-PRODUCTIVE AND HACKING COUGH THROUGHOUT THE SHIFT, DR ROSENTHAL NOTIFIED, NEW ORDERS IN PLACE, PT MEDICATED PER EMAR. BREATHING TREATMENT PER RT, SEE EMAR. PT UP WITH SBA TO BATHROOM TO VOID FREQUENTLY THROUGHOUT THE SHIFT. BED IN LOW POSITION, CALL LIGHT WITHIN REACH.
--- NOTE | 2021-12-13 04:25 | NUR ---
SHIFT SUMMARY: PATIENT IS UP TO THE BATHROOM TO VOID WITH SBA X 1 AND WALKER, STEADY GAIT OBSERVED. NO REPORTS OF PAIN WHEN LIDOCAIN PATCH WAS REMOVED FROM NECK. VSS, MAINTAINING SATS 96% ON RA, LUNGS HAVE EXPIRATORY WHEEZES IN UPPER FEILDS BILAT. BED ALARM IS ON FOR SAFETY.
--- NOTE | 2021-12-14 05:22 | NUR ---
SUMMARY: PT A/OX3, IS [place] AND PLEASANTLY CONFUSED AT TIMES BUT REORIENTS W/REMINDERS. SHE CALLED APPROPRIATELY TO SPECIFY NEEDS THIS SHIFT BUT HAS BED ALARM ON FOR FALL RISK. PT SBA W/FWW TO TOILET AND IS MILDLY SOB W/EXERTION BUT THIS IS IMPROVING. OCC WHEEZES HEARD, RT PROVIDED BREATHING TX'S PER EMAR. PT DENIED PAIN BUT HAS KPAD AVAILABLE AD BRI AND NO PRN'S REQUIRED TONIGHT. NO ACUTE CHANGES, VSS/AFEBRILE. PLACEMENT PENDING. WCTM AND REPORT TO DAY RN.
--- NOTE | 2021-12-14 18:24 | NUR ---
SHIFT SUMMARY; NO ACUTE CHANGES IN CONDITION NOTED TODAY. PATIENT WAITING FOR [facility] TO COME EVAL HER TODAY AND THEY DID NOT SHOW. JESSICA APPEARS DOWN. ATTEMMPTS TO REASSURE HER THAT WILL CALL IN THE AM AND ASK WHAT HAPPENED ARE SUCCESSFUL AND SHE VERBALIZED UNDERSTANDING AND SAYS SHE WILL WAIT TO HEAR TOMORROW. PATIENT AMBULATES TO BATHROOM WITH FWW WITHOUT ASSIST. CALLS APPROPRIATELY AND IS ABLE TO MAKE HER NEEDS KNOWN.
--- NOTE | 2021-12-15 11:56 | NUR ---
Spiritual care visit conducted. Patient tells me that she will DC today. She expresses her jacquelyn about moving on with her life and her thankfulness for all those who have helped her in the hospital to get her set up with finances and placement. I provide a prayer of blessing. Pt voices appreciation for the the visits from Spiritual care.
[2021-12-15] MEDS ORDERED: ELIQUIS5 M2 PO (15:04)
[2021-12-15] MEDS ORDERED: PACERONE100 M1 PO (15:04)
[2021-12-15] MEDS ORDERED: LANOXIN125 MCG PO (15:05)
[2021-12-15] MEDS ORDERED: FURO20 PO (15:06)
[2021-12-15] MEDS ORDERED: LIDOCAINE1 EAC1 TOP (15:06)
[2021-12-15] MEDS ORDERED: LISI5 PO (15:07)
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
--- NOTE | 2021-12-16 02:51 | NUR ---
PERSONAL INJURY SPECIALIST SUMMARY PATIENT HAD A FAIR SHIFT. SHE DID NOT LODGE ANY FRESH COMPLAINTS OVERNIGHT. VITAL SIGNS STABLE, WILL CONTINUE TO MONITOR HER.
[2021-12-16] MEDS ORDERED: IPRAT-ALBUT 0.5-3 ML INH (12:39)
[2021-12-16 13:39] LABS: Influenza A, PCR NEGATIVE (NEGATIVE); Influenza B, PCR NEGATIVE (NEGATIVE); Resp Syncytial Virus, PCR NEGATIVE (NEGATIVE); SARS-Cov-2 (COVID-19) PCR, MMC NEGATIVE (NEGATIVE)
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
--- NOTE | 2021-12-16 15:43 | NUR ---
DISCHARGE NOTE- PT WAS DIISCHARGED TO [facility]. ALL BELONGINGS WERE PLACED IN THE TRANSPORT WITH HER. CARE MANAGEMENT SENT ALL RECORDS OVER TO [facility]. PT HAD NO IV AT THE TIME OF DISCHARGE. PT WAS ESCORTED TO [facility] BY STAFF WHERE SHE WAS TAKEN BY TAXI VAN TO HER NEW RESIDENCE. NO S&S OF DISTRESS NOTED AT THE TIME OF DISCAHRGE.
== END 2021-12-16 14:22 | disposition home or self-care (01) | DRG 193 ==
LOC: ER 21:33 → ERHOLD 21:34 → MEDS 10-26 15:02 → ENPENDDIS 12-15 18:31 → MEDS 12-16 14:22
PROVIDERS: Family Medicine; Internal Medicine; Nurse Practitioner Acute Care; Student in an Organized Health Care Education/Training Program; ADMIT Internal Medicine
DX: J18.9 Pneumonia, unspecified organism (principal); J96.01 Acute respiratory failure with hypoxia; J96.02 Acute respiratory failure with hypercapnia; I50.43 Acute on chronic combined systolic (congestive) and diastolic (congestive) heart failure; I13.0 Hypertensive heart and chronic kidney disease with heart failure and stage 1 through stage 4 chronic kidney disease, or unspecified chronic kidney disease; J44.1 Chronic obstructive pulmonary disease with (acute) exacerbation; J44.0 Chronic obstructive pulmonary disease with (acute) lower respiratory infection; I48.20 Chronic atrial fibrillation, unspecified; F02.81 Dementia in other diseases classified elsewhere, unspecified severity, with behavioral disturbance; Z20.822 Contact with and (suspected) exposure to COVID-19; G30.9 Alzheimer's disease, unspecified; M19.90 Unspecified osteoarthritis, unspecified site; D63.1 Anemia in chronic kidney disease; Z51.5 Encounter for palliative care; F41.9 Anxiety disorder, unspecified; E83.39 Other disorders of phosphorus metabolism; K21.9 Gastro-esophageal reflux disease without esophagitis; N18.30 Chronic kidney disease, stage 3 unspecified; F17.210 Nicotine dependence, cigarettes, uncomplicated; Z79.01 Long term (current) use of anticoagulants; Z79.899 Other long term (current) drug therapy
CPT/HCPCS: 0241U; 36415; 71045; 71046; 72040; 80048; 80053; 80069; 82803; 83735; 83880; 84436; 84443; 84484; 85014; 85018; 85025; 85027; 92526; 92610; 93005; 93010; 94640; 94644; 94664; 94667; 94668; 94760; 94762; 96374; 96376; 97110; 97110-CQ; 97116; 97162; 97166; 97530; 97535; 99285-25; A9270; G0378; J0456; J0696; J1885; J1940; J2060; J2405; J2920; J2930; J7050; J7512

== ENCOUNTER 2021-12-26 22:46 | Emergency (ER) | payer MEDICARE, OTHER ==
[~2021-12-26] VITALS: Ht 167.6 cm; Wt 72.6 kg
[~2021-12-26 22:46] MED LIST changes: +BREO ELLIPTA 11 EAC1 INH; +FURO20 PO; +HYDCHL25 PO; +IPRAT-ALBUT 0.5-3 ML INH; +LIDOCAINE1 EAC1 TOP; +METO25ER PO; +OMEP20ER PO; +PACERONE100 M1 PO; +POTA10T PO; +SPIRIVA RESPIMAT4 G3 INH
== END 2021-12-27 00:54 | disposition home or self-care (01) ==
LOC: ER 22:46
DX: Z00.00 Encounter for general adult medical examination without abnormal findings (principal); I11.0 Hypertensive heart disease with heart failure; I50.9 Heart failure, unspecified; J44.9 Chronic obstructive pulmonary disease, unspecified; Z79.01 Long term (current) use of anticoagulants; Z79.899 Other long term (current) drug therapy
CPT/HCPCS: 93005; 93010; 99283-25

== ENCOUNTER → 2022-01-06 | Outpatient (CLI) | payer MEDICARE, OTHER ==
[2022-01-06 14:27] LABS: Source, Urine Clean Catch
[2022-01-06 15:38] LABS: Bilirubin, Urine Neg (Neg); Blood, Urine 2+ (Neg); Color, Urine Yellow (P-Yellow); Glucose Qualitative, Urine Neg (Neg); Ketones, Urine Neg (Neg); Leukocyte Esterase, Urine Neg (Neg); Nitrite, Urine Neg (Neg); Protein, Urine Neg (Neg); Urobilinogen, Urine NORM (Normal)
[2022-01-06 16:28] LABS: Appearance, Urine Hazy (Clear); Red Blood Cells, Urine 0-2 /hpf (0-2); Squamous Epithelial Cells Rare /hpf (Few); White Blood Cells, Urine 0-2 /hpf (0-5)
[2022-01-06 16:29] LABS: Bacteria Many /hpf
== END | disposition home or self-care (01) ==
LOC: LAB SHORT 13:00
PROVIDERS: Physician Assistant
DX: R30.9 Painful micturition, unspecified (principal)
CPT/HCPCS: 81001; 87077; 87086; 87186

== ENCOUNTER 2022-04-02 20:51 | Emergency (ER) | payer MEDICARE, OTHER ==
[~2022-04-02] VITALS: Ht 160 cm; Wt 74.4 kg
[2022-04-02 22:55] LABS: BASOPHILS ABSOLUTE AUTO 0.06 K/mm3 (0.00-0.23); BASOPHILS PERCENT AUTO 1 % (0-2); EOSINOPHILS ABSOLUTE AUTO 0.16 K/mm3 (0.00-0.68); EOSINOPHILS PERCENT AUTO 3 % (0-6); Hemoglobin 8.6 g/dL (11.5-16.0); IMMATURE GRAN ABSOLUTE AUTO 0.01 K/mm3 (0.00-0.10); IMMATURE GRAN PERCENT AUTO 0 % (0-1); LYMPHOCYTES PERCENT AUTO 17 % (21-46); MONOCYTES ABSOLUTE AUTO 0.63 K/mm3 (0.16-1.47); MONOCYTES PERCENT AUTO 10 % (4-13); Mean Corpuscular HGB 22.9 pg (26.0-34.0); Mean Corpuscular HGB Conc 29.7 g/dL (31.5-36.5); Mean Corpuscular Volume 77 fL (80-100); Mean Platelet Volume 10.3 fL (9.1-12.4); NEUTROPHILS ABSOLUTE AUTO 4.45 K/mm3 (1.96-9.15); NEUTROPHILS PERCENT AUTO 69 % (41-73); Platelet Count 226 K/mm3 (150-400); RDW Coefficient Variation 17.5 % (11.7-14.2); RDW Standard Deviation 49.5 fL (35.1-46.3); Red Blood Cell Count 3.76 M/mm3 (3.80-5.20); White Blood Cell Count 6.41 K/mm3 (4.00-11.30)
[2022-04-02 23:14] LABS: Albumin, Blood 3.1 g/dL (3.4-5.0); Albumin/Globulin Ratio 0.9 (0.8-1.8); Bilirubin, Total 0.6 mg/dL (0.1-1.0); Bun/Creatinine Ratio 10.1 (12.0-20.0); Calcium, Blood 8.6 mg/dL (8.5-10.1); Creatinine, Blood 1.38 mg/dL (0.40-1.00); Globulin, Blood 3.6 g/dL (2.2-4.0); Potassium, Blood 3.8 mmol/L (3.5-5.5); Total Protein, Blood 6.7 g/dL (6.4-8.2)
== END 2022-04-03 02:28 | disposition home or self-care (01) ==
LOC: ER 20:51
PROVIDERS: Physician Assistant
DX: R11.2 Nausea with vomiting, unspecified (principal); I13.0 Hypertensive heart and chronic kidney disease with heart failure and stage 1 through stage 4 chronic kidney disease, or unspecified chronic kidney disease; N18.30 Chronic kidney disease, stage 3 unspecified; I50.9 Heart failure, unspecified; J44.9 Chronic obstructive pulmonary disease, unspecified; K21.9 Gastro-esophageal reflux disease without esophagitis; I48.91 Unspecified atrial fibrillation; Z86.718 Personal history of other venous thrombosis and embolism; Z79.01 Long term (current) use of anticoagulants; Z79.899 Other long term (current) drug therapy
CPT/HCPCS: 80053; 83690; 85025; 86900; 86901

== ENCOUNTER 2022-04-29 13:19 | Emergency (ER) | payer MEDICARE, OTHER ==
[~2022-04-29] VITALS: Ht 167.6 cm; Wt 93.0 kg
[2022-04-29 14:45] LABS: BASOPHILS ABSOLUTE AUTO 0.02 K/mm3 (0.00-0.23); BASOPHILS PERCENT AUTO 0 % (0-2); EOSINOPHILS ABSOLUTE AUTO 0.14 K/mm3 (0.00-0.68); EOSINOPHILS PERCENT AUTO 2 % (0-6); Hematocrit 26.9 % (33.0-51.0); Hemoglobin 7.7 g/dL (11.5-16.0); IMMATURE GRAN ABSOLUTE AUTO 0.02 K/mm3 (0.00-0.10); IMMATURE GRAN PERCENT AUTO 0 % (0-1); LYMPHOCYTES ABSOLUTE AUTO 1.08 K/mm3 (0.84-5.20); LYMPHOCYTES PERCENT AUTO 14 % (21-46); MONOCYTES ABSOLUTE AUTO 0.65 K/mm3 (0.16-1.47); MONOCYTES PERCENT AUTO 9 % (4-13); Mean Corpuscular HGB 21.6 pg (26.0-34.0); Mean Corpuscular HGB Conc 28.6 g/dL (31.5-36.5); Mean Corpuscular Volume 75 fL (80-100); Mean Platelet Volume 10.1 fL (9.1-12.4); NEUTROPHILS ABSOLUTE AUTO 5.72 K/mm3 (1.96-9.15); NEUTROPHILS PERCENT AUTO 75 % (41-73); Platelet Count 216 K/mm3 (150-400); RDW Coefficient Variation 18.5 % (11.7-14.2); RDW Standard Deviation 50.4 fL (35.1-46.3); Red Blood Cell Count 3.57 M/mm3 (3.80-5.20); White Blood Cell Count 7.63 K/mm3 (4.00-11.30)
[2022-04-29 15:18] LABS: Alanine Aminotransfer (ALT/SGP 22 U/L (12-78); Albumin, Blood 3.2 g/dL (3.4-5.0); Albumin/Globulin Ratio 0.8 (0.8-1.8); Alk Phos 69 U/L (50-136); Anion Gap 5 mmol/L (6-16); Aspartate Aminotrans (AST/SGOT 27 U/L (12-37); Bilirubin, Total 0.4 mg/dL (0.1-1.0); Blood Urea Nitrogen 28 mg/dL (8-24); Bun/Creatinine Ratio 17.1 (12.0-20.0); CO2, Blood 30 mmol/L (21-32); Calcium, Blood 8.7 mg/dL (8.5-10.1); Chloride, Blood 104 mmol/L (98-108); Creatinine, Blood 1.64 mg/dL (0.40-1.00); Digoxin (Lanoxin) 1.19 ug/mL (0.80-2.00); Globulin, Blood 3.8 g/dL (2.2-4.0); Glomerular Filtration Rate 33 (60-); Glucose, Blood 104 mg/dL (70-99); Potassium, Blood 4.4 mmol/L (3.5-5.5); Sodium, Blood 139 mmol/L (136-145)
[2022-04-29 15:43] LABS: Influenza A, PCR NEGATIVE (NEGATIVE); Influenza B, PCR NEGATIVE (NEGATIVE); Resp Syncytial Virus, PCR NEGATIVE (NEGATIVE); SARS-Cov-2 (COVID-19) PCR, MMC NEGATIVE (NEGATIVE)
== END 2022-04-29 19:42 | disposition home or self-care (01) ==
LOC: ER 13:19
PROVIDERS: Emergency Medicine
DX: I11.0 Hypertensive heart disease with heart failure (principal); I50.9 Heart failure, unspecified; J44.9 Chronic obstructive pulmonary disease, unspecified; D64.9 Anemia, unspecified; Z20.822 Contact with and (suspected) exposure to COVID-19; Z79.899 Other long term (current) drug therapy; Z79.01 Long term (current) use of anticoagulants
CPT/HCPCS: 0241U; 71045; 80053; 80162; 83880; 84484; 85025; 93005; 93010; 94640; 94664; J1940; J2930

== ENCOUNTER 2022-06-05 09:29 | Emergency (ER) | payer MEDICARE, OTHER ==
[~2022-06-05] VITALS: Ht 162.6 cm; Wt 68.0 kg
[2022-06-05 10:16] LABS: BASOPHILS ABSOLUTE AUTO 0.06 K/mm3 (0.00-0.23); BASOPHILS PERCENT AUTO 1 % (0-2); EOSINOPHILS ABSOLUTE AUTO 0.05 K/mm3 (0.00-0.68); EOSINOPHILS PERCENT AUTO 1 % (0-6); Hematocrit 31.4 % (33.0-51.0); Hemoglobin 8.4 g/dL (11.5-16.0); IMMATURE GRAN ABSOLUTE AUTO 0.02 K/mm3 (0.00-0.10); IMMATURE GRAN PERCENT AUTO 0 % (0-1); LYMPHOCYTES ABSOLUTE AUTO 0.88 K/mm3 (0.84-5.20); LYMPHOCYTES PERCENT AUTO 17 % (21-46); MONOCYTES ABSOLUTE AUTO 0.47 K/mm3 (0.16-1.47); MONOCYTES PERCENT AUTO 9 % (4-13); Mean Corpuscular HGB 19.8 pg (26.0-34.0); Mean Corpuscular HGB Conc 26.8 g/dL (31.5-36.5); Mean Corpuscular Volume 74 fL (80-100); NEUTROPHILS ABSOLUTE AUTO 3.64 K/mm3 (1.96-9.15); NEUTROPHILS PERCENT AUTO 71 % (41-73); RDW Standard Deviation 52.7 fL (35.1-46.3); Red Blood Cell Count 4.24 M/mm3 (3.80-5.20); White Blood Cell Count 5.12 K/mm3 (4.00-11.30)
[2022-06-05 10:34] LABS: Platelet Count 145 K/mm3 (150-400)
[2022-06-05 10:55] LABS: Albumin, Blood 3.3 g/dL (3.4-5.0); Bilirubin, Total 0.5 mg/dL (0.1-1.0); Bun/Creatinine Ratio 19.6 (12.0-20.0); Creatinine, Blood 1.43 mg/dL (0.40-1.00); Globulin, Blood 3.3 g/dL (2.2-4.0); Potassium, Blood 4.8 mmol/L (3.5-5.5); Total Protein, Blood 6.6 g/dL (6.4-8.2)
[2022-06-05] MEDS ORDERED: ALBU90OI INH (12:45)
[2022-06-05] MEDS ORDERED: OCUFLOX510 RIGHTEAR (12:45)
== END 2022-06-05 13:06 | disposition home or self-care (01) ==
LOC: ER 09:29
PROVIDERS: Student in an Organized Health Care Education/Training Program
DX: H60.91 Unspecified otitis externa, right ear (principal); R06.2 Wheezing; I13.0 Hypertensive heart and chronic kidney disease with heart failure and stage 1 through stage 4 chronic kidney disease, or unspecified chronic kidney disease; N18.30 Chronic kidney disease, stage 3 unspecified; I50.9 Heart failure, unspecified; J44.9 Chronic obstructive pulmonary disease, unspecified; I48.91 Unspecified atrial fibrillation; K21.9 Gastro-esophageal reflux disease without esophagitis; Z79.01 Long term (current) use of anticoagulants; Z79.899 Other long term (current) drug therapy; Z87.891 Personal history of nicotine dependence
CPT/HCPCS: 71046; 80053; 85025; 94644; 94645; 94664; A9270

== ENCOUNTER 2022-06-13 17:56 | Emergency (ER) | payer MEDICARE, OTHER ==
[~2022-06-13] VITALS: Ht 162.6 cm; Wt 71.2 kg
[~2022-06-13 17:56] MED LIST changes: +OCUFLOX510 RIGHTEAR
== END 2022-06-13 19:54 | disposition home or self-care (01) ==
LOC: ER 17:56
DX: T17.928A Food in respiratory tract, part unspecified causing other injury, initial encounter (principal); X58.XXXA Exposure to other specified factors, initial encounter; I13.0 Hypertensive heart and chronic kidney disease with heart failure and stage 1 through stage 4 chronic kidney disease, or unspecified chronic kidney disease; N18.30 Chronic kidney disease, stage 3 unspecified; I50.9 Heart failure, unspecified; I48.91 Unspecified atrial fibrillation; J44.9 Chronic obstructive pulmonary disease, unspecified; K21.9 Gastro-esophageal reflux disease without esophagitis; Z79.01 Long term (current) use of anticoagulants; Z79.899 Other long term (current) drug therapy
CPT/HCPCS: 71046

== ENCOUNTER → 2022-06-16 | Outpatient (CLI) | payer MEDICARE, OTHER | END | disposition home or self-care (01) | LOC: LAB SHORT 15:50 → LAB 15:50 | DX: R30.0 Dysuria (principal) | CPT/HCPCS: 87077; 87086; 87186 ==

== ENCOUNTER 2022-11-01 01:21 | Emergency (ER) | payer MEDICARE, OTHER ==
[~2022-11-01] VITALS: Ht 160 cm; Wt 66.7 kg
[2022-11-01 02:09] LABS: BASOPHILS ABSOLUTE AUTO 0.03 K/mm3 (0.00-0.23); BASOPHILS PERCENT AUTO 1 % (0-2); EOSINOPHILS ABSOLUTE AUTO 0.09 K/mm3 (0.00-0.68); EOSINOPHILS PERCENT AUTO 2 % (0-6); Hematocrit 32.3 % (33.0-51.0); Hemoglobin 10.4 g/dL (11.5-16.0); IMMATURE GRAN ABSOLUTE AUTO 0.02 K/mm3 (0.00-0.10); IMMATURE GRAN PERCENT AUTO 0 % (0-1); LYMPHOCYTES PERCENT AUTO 15 % (21-46); MONOCYTES ABSOLUTE AUTO 0.62 K/mm3 (0.16-1.47); MONOCYTES PERCENT AUTO 10 % (4-13); Mean Corpuscular HGB 29.3 pg (26.0-34.0); Mean Corpuscular HGB Conc 32.2 g/dL (31.5-36.5); Mean Corpuscular Volume 91 fL (80-100); Mean Platelet Volume 9.6 fL (9.1-12.4); NEUTROPHILS ABSOLUTE AUTO 4.33 K/mm3 (1.96-9.15); NEUTROPHILS PERCENT AUTO 72 % (41-73); Platelet Count 102 K/mm3 (150-400); RDW Coefficient Variation 14.1 % (11.7-14.2); RDW Standard Deviation 47.5 fL (35.1-46.3); Red Blood Cell Count 3.55 M/mm3 (3.80-5.20); White Blood Cell Count 5.99 K/mm3 (4.00-11.30)
[2022-11-01 02:27] LABS: Albumin, Blood 3.4 g/dL (3.4-5.0); Bilirubin, Total 0.3 mg/dL (0.1-1.0); Calcium, Blood 8.3 mg/dL (8.5-10.1); Creatinine, Blood 1.13 mg/dL (0.40-1.00); Globulin, Blood 3.5 g/dL (2.2-4.0); Potassium, Blood 4.1 mmol/L (3.5-5.5); Total Protein, Blood 6.9 g/dL (6.4-8.2)
[2022-11-01 02:54] LABS: Influenza A, PCR NEGATIVE (NEGATIVE); Influenza B, PCR NEGATIVE (NEGATIVE); SARS-Cov-2 (COVID-19) PCR, MMC NEGATIVE (NEGATIVE)
[2022-11-01 03:07] LABS: Resp Syncytial Virus, PCR POSITIVE (NEGATIVE)
== END 2022-11-01 06:26 | disposition home or self-care (01) ==
LOC: ER 01:21
PROVIDERS: Emergency Medicine; Student in an Organized Health Care Education/Training Program
DX: R06.2 Wheezing (principal); B97.4 Respiratory syncytial virus as the cause of diseases classified elsewhere; J44.9 Chronic obstructive pulmonary disease, unspecified; I13.0 Hypertensive heart and chronic kidney disease with heart failure and stage 1 through stage 4 chronic kidney disease, or unspecified chronic kidney disease; N18.30 Chronic kidney disease, stage 3 unspecified; I50.9 Heart failure, unspecified; K21.9 Gastro-esophageal reflux disease without esophagitis; F03.90 Unspecified dementia, unspecified severity, without behavioral disturbance, psychotic disturbance, mood disturbance, and anxiety; Z79.899 Other long term (current) drug therapy; Z79.01 Long term (current) use of anticoagulants
CPT/HCPCS: 0241U; 71045; 80053; 84484; 85025; 93005; 93010; 94644; 94645; 94664; J1100

== ENCOUNTER → 2023-01-26 | Outpatient (CLI) | payer MEDICARE, OTHER ==
[2023-01-26 18:52] LABS: BASOPHILS ABSOLUTE AUTO 0.04 K/mm3 (0.00-0.23); BASOPHILS PERCENT AUTO 1 % (0-2); EOSINOPHILS ABSOLUTE AUTO 0.19 K/mm3 (0.00-0.68); EOSINOPHILS PERCENT AUTO 3 % (0-6); Hematocrit 35.6 % (33.0-51.0); Hemoglobin 10.6 g/dL (11.5-16.0); IMMATURE GRAN ABSOLUTE AUTO 0.02 K/mm3 (0.00-0.10); IMMATURE GRAN PERCENT AUTO 0 % (0-1); LYMPHOCYTES ABSOLUTE AUTO 1.18 K/mm3 (0.84-5.20); LYMPHOCYTES PERCENT AUTO 17 % (21-46); MONOCYTES ABSOLUTE AUTO 0.79 K/mm3 (0.16-1.47); MONOCYTES PERCENT AUTO 12 % (4-13); Mean Corpuscular HGB 25.9 pg (26.0-34.0); Mean Corpuscular HGB Conc 29.8 g/dL (31.5-36.5); Mean Corpuscular Volume 87 fL (80-100); Mean Platelet Volume 10.1 fL (9.1-12.4); NEUTROPHILS ABSOLUTE AUTO 4.65 K/mm3 (1.96-9.15); NEUTROPHILS PERCENT AUTO 68 % (41-73); Platelet Count 196 K/mm3 (150-400); RDW Coefficient Variation 14.3 % (11.7-14.2); White Blood Cell Count 6.87 K/mm3 (4.00-11.30)
[2023-01-26 19:20] LABS: Percent Saturation 40.5 % (15.0-50.0)
[2023-01-26 19:27] LABS: Albumin, Blood 3.7 g/dL (3.4-5.0); Bilirubin, Total 0.6 mg/dL (0.1-1.0); Bun/Creatinine Ratio 12.6 (12.0-20.0); Calcium, Blood 8.4 mg/dL (8.5-10.1); Creatinine, Blood 1.11 mg/dL (0.40-1.00); Globulin, Blood 3.7 g/dL (2.2-4.0); Potassium, Blood 3.7 mmol/L (3.5-5.5); Thyroid Stimulating Hormone 5.89 uIU/mL (0.360-4.800); Total Protein, Blood 7.4 g/dL (6.4-8.2)
== END | disposition home or self-care (01) ==
LOC: LAB SHORT 16:33
PROVIDERS: Nurse Practitioner Family
DX: D64.9 Anemia, unspecified (principal); R94.6 Abnormal results of thyroid function studies
CPT/HCPCS: 80053; 82728; 83540; 83550; 84443; 85025

== ENCOUNTER 2023-03-26 17:12 | Emergency (ER) | payer MEDICARE, OTHER ==
[~2023-03-26] VITALS: Ht 170.2 cm; Wt 78.9 kg
[2023-03-26] MEDS ORDERED: ACET325 PO (17:41)
[2023-03-26] MEDS ORDERED: ESCI10 PO (17:43)
[2023-03-26] MEDS ORDERED: FERSU300 PO (17:43)
[2023-03-26] MEDS ORDERED: PANT40 PO (17:44)
[2023-03-26 18:18] LABS: Base Excess Venous -2.4 mmol/L; PCO2 Venous 47.2 mmHg (38-42); pH Blood Venous 7.31 (7.34-7.37)
[2023-03-26 18:23] LABS: BASOPHILS ABSOLUTE AUTO 0.05 K/mm3 (0.00-0.23); BASOPHILS PERCENT AUTO 1 % (0-2); EOSINOPHILS ABSOLUTE AUTO 0.22 K/mm3 (0.00-0.68); EOSINOPHILS PERCENT AUTO 3 % (0-6); Hematocrit 39.5 % (33.0-51.0); Hemoglobin 12.4 g/dL (11.5-16.0); IMMATURE GRAN ABSOLUTE AUTO 0.03 K/mm3 (0.00-0.10); IMMATURE GRAN PERCENT AUTO 0 % (0-1); LYMPHOCYTES PERCENT AUTO 22 % (21-46); MONOCYTES ABSOLUTE AUTO 0.69 K/mm3 (0.16-1.47); MONOCYTES PERCENT AUTO 10 % (4-13); Mean Corpuscular HGB 28.3 pg (26.0-34.0); Mean Corpuscular HGB Conc 31.4 g/dL (31.5-36.5); Mean Corpuscular Volume 90 fL (80-100); Mean Platelet Volume 9.4 fL (9.1-12.4); NEUTROPHILS PERCENT AUTO 65 % (41-73); Platelet Count 163 K/mm3 (150-400); RDW Coefficient Variation 16.4 % (11.7-14.2); RDW Standard Deviation 54.4 fL (35.1-46.3); Red Blood Cell Count 4.38 M/mm3 (3.80-5.20); White Blood Cell Count 7.29 K/mm3 (4.00-11.30)
[2023-03-26 18:44] LABS: Albumin, Blood 3.5 g/dL (3.4-5.0); Albumin/Globulin Ratio 0.9 (0.8-1.8); Bilirubin, Total 0.2 mg/dL (0.1-1.0); Bun/Creatinine Ratio 30.2 (12.0-20.0); Calcium, Blood 8.1 mg/dL (8.5-10.1); Creatinine, Blood 1.62 mg/dL (0.40-1.00); Globulin, Blood 3.9 g/dL (2.2-4.0); Potassium, Blood 4.6 mmol/L (3.5-5.5); Total Protein, Blood 7.4 g/dL (6.4-8.2)
[2023-03-26 21:00] VITALS: BP 128/102
[2023-03-26] MEDS ORDERED: Prednisone50 MG PO (21:00)
== END 2023-03-26 23:30 | disposition home or self-care (01) ==
LOC: ER 17:12
PROVIDERS: Emergency Medicine
DX: R07.9 Chest pain, unspecified (principal); J44.9 Chronic obstructive pulmonary disease, unspecified; Z99.81 Dependence on supplemental oxygen; Z79.899 Other long term (current) drug therapy; I48.91 Unspecified atrial fibrillation; I13.0 Hypertensive heart and chronic kidney disease with heart failure and stage 1 through stage 4 chronic kidney disease, or unspecified chronic kidney disease; N18.30 Chronic kidney disease, stage 3 unspecified; K21.9 Gastro-esophageal reflux disease without esophagitis; M19.90 Unspecified osteoarthritis, unspecified site; I50.9 Heart failure, unspecified; Z87.891 Personal history of nicotine dependence
CPT/HCPCS: 71045; 80053; 82803; 83880; 84484; 85025; 93005; 93010; 94640; 94664; 96374; 96375; 99285-25; A9270; J2405; J2930; J7030

== ENCOUNTER → 2023-04-11 | Outpatient (CLI) | payer MEDICARE, OTHER ==
[~2023-04-11] MED LIST changes: +ACET325 PO; +ESCI10 PO; +FERSU300 PO; +PANT40 PO; +Prednisone50 MG PO
== END | disposition home or self-care (01) ==
LOC: LAB 17:19 → LAB SHORT 17:19
DX: R35.0 Frequency of micturition (principal)
CPT/HCPCS: 87077; 87086; 87186

== ENCOUNTER → 2023-08-04 | Outpatient (CLI) | payer MEDICARE, OTHER ==
[2023-08-04 19:42] LABS: Percent Saturation 20.9 % (15.0-50.0)
[2023-08-04 19:45] LABS: Albumin, Blood 3.5 g/dL (3.4-5.0); Albumin/Globulin Ratio 0.8 (0.8-1.8); Bilirubin, Total 0.6 mg/dL (0.1-1.0); Bun/Creatinine Ratio 17.6 (12.0-20.0); Calcium, Blood 8.9 mg/dL (8.5-10.1); Creatinine, Blood 1.48 mg/dL (0.40-1.00); Globulin, Blood 4.3 g/dL (2.2-4.0); Thyroid Stimulating Hormone 3.84 uIU/mL (0.360-4.800); Total Protein, Blood 7.8 g/dL (6.4-8.2)
[2023-08-04 19:48] LABS: BASOPHILS ABSOLUTE AUTO 0.04 K/mm3 (0.00-0.23); BASOPHILS PERCENT AUTO 1 % (0-2); EOSINOPHILS ABSOLUTE AUTO 0.12 K/mm3 (0.00-0.68); EOSINOPHILS PERCENT AUTO 2 % (0-6); Hematocrit 40.9 % (33.0-51.0); Hemoglobin 13.4 g/dL (11.5-16.0); IMMATURE GRAN ABSOLUTE AUTO 0.02 K/mm3 (0.00-0.10); IMMATURE GRAN PERCENT AUTO 0 % (0-1); LYMPHOCYTES ABSOLUTE AUTO 1.04 K/mm3 (0.84-5.20); LYMPHOCYTES PERCENT AUTO 13 % (21-46); MONOCYTES ABSOLUTE AUTO 0.96 K/mm3 (0.16-1.47); MONOCYTES PERCENT AUTO 12 % (4-13); Mean Corpuscular HGB 30.7 pg (26.0-34.0); Mean Corpuscular HGB Conc 32.8 g/dL (31.5-36.5); Mean Corpuscular Volume 94 fL (80-100); Mean Platelet Volume 9.7 fL (9.1-12.4); NEUTROPHILS ABSOLUTE AUTO 6.01 K/mm3 (1.96-9.15); NEUTROPHILS PERCENT AUTO 73 % (41-73); Platelet Count 148 K/mm3 (150-400); RDW Coefficient Variation 11.9 % (11.7-14.2); RDW Standard Deviation 41.5 fL (35.1-46.3); Red Blood Cell Count 4.36 M/mm3 (3.80-5.20); White Blood Cell Count 8.19 K/mm3 (4.00-11.30)
== END | disposition home or self-care (01) ==
LOC: LAB SHORT 16:12 → LAB 16:12
PROVIDERS: Nurse Practitioner Family
DX: E03.9 Hypothyroidism, unspecified (principal); N18.4 Chronic kidney disease, stage 4 (severe); D50.0 Iron deficiency anemia secondary to blood loss (chronic)
CPT/HCPCS: 80053; 82728; 83540; 83550; 84443; 85025

== ENCOUNTER 2023-09-10 14:56 | Emergency (ER) | payer OTHER, MEDICARE ==
[~2023-09-10] VITALS: Ht 162.6 cm; Wt 86.2 kg
[2023-09-10 17:12] VITALS: BP 127/60
== END 2023-09-10 17:13 | disposition home or self-care (01) ==
LOC: ER 14:56
DX: J44.1 Chronic obstructive pulmonary disease with (acute) exacerbation (principal); S46.919A Strain of unspecified muscle, fascia and tendon at shoulder and upper arm level, unspecified arm, initial encounter; I13.0 Hypertensive heart and chronic kidney disease with heart failure and stage 1 through stage 4 chronic kidney disease, or unspecified chronic kidney disease; I50.30 Unspecified diastolic (congestive) heart failure; N18.30 Chronic kidney disease, stage 3 unspecified; I48.91 Unspecified atrial fibrillation; J96.10 Chronic respiratory failure, unspecified whether with hypoxia or hypercapnia; G30.9 Alzheimer's disease, unspecified; F02.818 Dementia in other diseases classified elsewhere, unspecified severity, with other behavioral disturbance; Z99.81 Dependence on supplemental oxygen; Z79.899 Other long term (current) drug therapy; Z79.01 Long term (current) use of anticoagulants; Z79.52 Long term (current) use of systemic steroids; Z87.891 Personal history of nicotine dependence; V78.6XXA Passenger on bus injured in noncollision transport accident in traffic accident, initial encounter
CPT/HCPCS: 71045; 94640; 94664; 99284-25

== ENCOUNTER 2023-11-13 05:57 | Inpatient (IN) | payer MEDICARE, OTHER ==
[~2023-11-13] VITALS: Ht 167.6 cm; Wt 88.5 kg
[2023-11-13 06:19] LABS: BASOPHILS ABSOLUTE AUTO 0.04 K/mm3 (0.00-0.23); BASOPHILS PERCENT AUTO 0 % (0-2); EOSINOPHILS ABSOLUTE AUTO 0.17 K/mm3 (0.00-0.68); EOSINOPHILS PERCENT AUTO 1 % (0-6); Hematocrit 41.2 % (33.0-51.0); Hemoglobin 13.4 g/dL (11.5-16.0); IMMATURE GRAN ABSOLUTE AUTO 0.06 K/mm3 (0.00-0.10); IMMATURE GRAN PERCENT AUTO 1 % (0-1); LYMPHOCYTES ABSOLUTE AUTO 1.26 K/mm3 (0.84-5.20); LYMPHOCYTES PERCENT AUTO 11 % (21-46); MONOCYTES ABSOLUTE AUTO 1.08 K/mm3 (0.16-1.47); MONOCYTES PERCENT AUTO 9 % (4-13); Mean Corpuscular HGB 30.4 pg (26.0-34.0); Mean Corpuscular HGB Conc 32.5 g/dL (31.5-36.5); Mean Corpuscular Volume 93 fL (80-100); Mean Platelet Volume 9.5 fL (9.1-12.4); NEUTROPHILS PERCENT AUTO 78 % (41-73); Platelet Count 167 K/mm3 (150-400); RDW Coefficient Variation 12.7 % (11.7-14.2); RDW Standard Deviation 43.5 fL (35.1-46.3); Red Blood Cell Count 4.41 M/mm3 (3.80-5.20); White Blood Cell Count 11.91 K/mm3 (4.00-11.30)
[2023-11-13 06:21] LABS: Base Excess Venous 2.5 mmol/L; Bicarbonate Venous 26.4 mmol/L (24.0-30.0); PCO2 Venous 39.8 mmHg (38-42); pH Blood Venous 7.44 (7.34-7.37)
[2023-11-13 06:38] LABS: Albumin, Blood 3.3 g/dL (3.4-5.0); Albumin/Globulin Ratio 0.7 (0.8-1.8); Bilirubin, Total 0.9 mg/dL (0.1-1.0); Bun/Creatinine Ratio 14.3 (12.0-20.0); Calcium, Blood 8.5 mg/dL (8.5-10.1); Creatinine, Blood 1.05 mg/dL (0.40-1.00); Magnesium, Blood 1.7 mg/dL (1.6-2.4); Potassium, Blood 4.5 mmol/L (3.5-5.5); Total Protein, Blood 8.3 g/dL (6.4-8.2)
[2023-11-13 07:07] LABS: SARS-Cov-2 (COVID-19) PCR, MMC NEGATIVE (NEGATIVE)
[2023-11-13 07:10] LABS: Influenza A Negative (NEGATIVE); Influenza B Negative (NEGATIVE)
[2023-11-13 07:22] LABS: Source, Urine Suprapubic Cath
[2023-11-13 07:26] LABS: Appearance, Urine Hazy (Clear); Bilirubin, Urine Neg (Neg); Blood, Urine 1+ (Neg); Color, Urine Yellow (P-Yellow); Glucose Qualitative, Urine Neg (Neg); Ketones, Urine Neg (Neg); Leukocyte Esterase, Urine 1+ (Neg); Nitrite, Urine Pos (Neg); Protein, Urine 4+ (Neg); Specific Gravity, Urine 1.015 (1.003-1.022); Urobilinogen, Urine 1+ (Normal); pH, Urine 6.5 (5.0-8.0)
[2023-11-13 07:34] LABS: Red Blood Cells, Urine 0-2 /hpf (0-2)
[2023-11-13 07:35] LABS: Bacteria Many /hpf; Squamous Epithelial Cells Few /hpf (Few)
[2023-11-13 07:37] LABS: Renal Epithelial Rare /hpf (0-Rare); Transitional Epithelial Cells Rare /hpf (0-Rare)
[2023-11-13] MEDS ORDERED: ACET500 PO (07:59)
[2023-11-13] MEDS ORDERED: ALEN70 PO (08:00)
[2023-11-13] MEDS ORDERED: FLONASE ALLERG9.9 M2 (08:02)
[2023-11-13] MEDS ORDERED: BISA10S PR (08:02)
[2023-11-13 08:26] LABS: Digoxin (Lanoxin) 0.88 ug/mL (0.80-2.00)
[2023-11-13] MEDS ORDERED: LEVSOD25 PO (09:23)
[2023-11-13] MEDS ORDERED: MIRT15ST PO (09:24)
[2023-11-13] MEDS ORDERED: INCRUSE ELLIPTA INH (09:29)
[2023-11-13] MEDS ORDERED: LIDO700A20 TOP (13:21)
[2023-11-13] MEDS ORDERED: MULVITA PO (13:22)
[2023-11-13] MEDS ORDERED: Ventolin/Prove6.7 GM INH (13:25)
[2023-11-13 17:10] VITALS: BP 136/73
[2023-11-13 20:26] VITALS: BP 159/83
--- NOTE | 2023-11-13 23:25 | NUR ---
ASSUMED CARE OF PT AT 1905. AOX4, PLEASANT, COOPERATIVE WITH CARE. APPEARS VERY ANXIOUS, SOME FLIGHT OF IDEAS NOTED DURING CONVERSATION. SCDs IN PLACE. NO PAIN REPORTED. SATS MAINTAINING >92% ON BIPAP AND 3 L O2 VIA NC. WEARING BIPAP NOW. TELE ON WITH NO EVENTS THUS FAR, RUNNING NSR. BEDREST THUS FAR. BED LOCKED IN LOWEST POSITION. BED ALARM REMAINS ACTIVE. CALL LIGHT LEFT WITHIN REACH. CONTINUING TO MONITOR. WILL HAND OFF TO SEAMUS RUBY AT 0100.
[2023-11-13 23:35] VITALS: BP 119/83
[2023-11-14 05:00] VITALS: BP 132/55
[2023-11-14 05:33] LABS: BASOPHILS ABSOLUTE AUTO 0.01 K/mm3 (0.00-0.23); BASOPHILS PERCENT AUTO 0 % (0-2); EOSINOPHILS PERCENT AUTO 0 % (0-6); Hematocrit 39.3 % (33.0-51.0); Hemoglobin 12.7 g/dL (11.5-16.0); IMMATURE GRAN ABSOLUTE AUTO 0.05 K/mm3 (0.00-0.10); IMMATURE GRAN PERCENT AUTO 1 % (0-1); LYMPHOCYTES ABSOLUTE AUTO 0.43 K/mm3 (0.84-5.20); LYMPHOCYTES PERCENT AUTO 4 % (21-46); MONOCYTES ABSOLUTE AUTO 0.17 K/mm3 (0.16-1.47); MONOCYTES PERCENT AUTO 2 % (4-13); Mean Corpuscular HGB Conc 32.3 g/dL (31.5-36.5); Mean Corpuscular Volume 93 fL (80-100); Mean Platelet Volume 9.9 fL (9.1-12.4); NEUTROPHILS ABSOLUTE AUTO 10.14 K/mm3 (1.96-9.15); NEUTROPHILS PERCENT AUTO 94 % (41-73); Platelet Count 181 K/mm3 (150-400); RDW Coefficient Variation 12.6 % (11.7-14.2); RDW Standard Deviation 42.7 fL (35.1-46.3); Red Blood Cell Count 4.24 M/mm3 (3.80-5.20)
[2023-11-14 06:00] LABS: Albumin, Blood 3.2 g/dL (3.4-5.0); Albumin/Globulin Ratio 0.6 (0.8-1.8); Bilirubin, Total 0.5 mg/dL (0.1-1.0); Bun/Creatinine Ratio 23.4 (12.0-20.0); Calcium, Blood 8.5 mg/dL (8.5-10.1); Creatinine, Blood 1.07 mg/dL (0.40-1.00); Potassium, Blood 4.1 mmol/L (3.5-5.5); Total Protein, Blood 8.2 g/dL (6.4-8.2)
--- NOTE | 2023-11-14 06:12 | NUR ---
NOC SHIFT SUMMARY ASSUMED CARE OF PT @0100 FROM MARIETTA HUGHES RN. PT SLEEPY BUT ORIENTED, ON BIPAP 10/11 @ 25%. DENIES PAIN OR DISCOMFORT. VSS PER PT TREND, SR/SB IN 50S-60S ON TELEMETRY. INCONTINENT OF URINE X1, PUREWIC REPLACED. WILL PASS ON TO DAY RN
[2023-11-14 08:55] VITALS: BP 128/46
[2023-11-14 08:56] VITALS: BP 128/46
[2023-11-14 16:13] VITALS: BP 128/56
--- NOTE | 2023-11-14 16:49 | NUR ---
SHIFT SUMMARY Pt alert, oriented x2-3; forgetful at times. Pt 1 person assist to bsc. PT reports headache this afternoon, medicated with tylenol. Pt denies chest pain/pressure, nausea, dizziness and numb/tingling. Tele sinus 60-70's, bp stable. Spo2 >90% on bipap this am 10/5 25% fio2; transitioned to 3l o2 via nc this am, , back on bipap for a short while after breakfast, then titrated down to 2l o2 via nc this evening. Abd soft, nontender, +bt t/o; pt having diarrhea this aftenoon. Purewick in place. Other vss. No other acute changes noted. Will continue to monitor.
[2023-11-14 18:48] VITALS: BP 146/56
--- NOTE | 2023-11-14 18:51 | NUR ---
[id number] PT ARRIVED ON MEDICAL FLOOR SIN STABLE CONDITION, BUT RESP=24-28, SO THIS RN PLACED PT ON BIPAP W/4 L BLEED IN OXYGEN AFTER SPEAKING WITH RT CARMEN. PT'S RESPERS=20 AFTER 10 MINS OF BIPAP. PT IMPROVED. PT'S BRIEF WAS WET UPON ARRIVAL. BRIEF CHANGED.
[2023-11-14 19:52] VITALS: BP 146/88
[2023-11-15 02:48] VITALS: BP 136/58
[2023-11-15 05:09] LABS: BASOPHILS ABSOLUTE AUTO 0.01 K/mm3 (0.00-0.23); BASOPHILS PERCENT AUTO 0 % (0-2); EOSINOPHILS PERCENT AUTO 0 % (0-6); Hematocrit 39.7 % (33.0-51.0); Hemoglobin 12.5 g/dL (11.5-16.0); IMMATURE GRAN PERCENT AUTO 1 % (0-1); LYMPHOCYTES ABSOLUTE AUTO 0.42 K/mm3 (0.84-5.20); LYMPHOCYTES PERCENT AUTO 4 % (21-46); MONOCYTES ABSOLUTE AUTO 0.17 K/mm3 (0.16-1.47); MONOCYTES PERCENT AUTO 1 % (4-13); Mean Corpuscular HGB 30.2 pg (26.0-34.0); Mean Corpuscular HGB Conc 31.5 g/dL (31.5-36.5); Mean Corpuscular Volume 96 fL (80-100); Mean Platelet Volume 9.9 fL (9.1-12.4); NEUTROPHILS ABSOLUTE AUTO 11.38 K/mm3 (1.96-9.15); NEUTROPHILS PERCENT AUTO 94 % (41-73); Platelet Count 179 K/mm3 (150-400); RDW Coefficient Variation 12.9 % (11.7-14.2); RDW Standard Deviation 44.9 fL (35.1-46.3); Red Blood Cell Count 4.14 M/mm3 (3.80-5.20); White Blood Cell Count 12.08 K/mm3 (4.00-11.30)
[2023-11-15 05:35] LABS: Albumin/Globulin Ratio 0.7 (0.8-1.8); Bilirubin, Total 0.4 mg/dL (0.1-1.0); Bun/Creatinine Ratio 34.6 (12.0-20.0); Calcium, Blood 8.6 mg/dL (8.5-10.1); Creatinine, Blood 1.04 mg/dL (0.40-1.00); Globulin, Blood 4.6 g/dL (2.2-4.0); Potassium, Blood 5.1 mmol/L (3.5-5.5); Total Protein, Blood 7.6 g/dL (6.4-8.2)
--- NOTE | 2023-11-15 07:39 | NUR ---
SHIFT SUMMARY PT A&OX3-4. NO ACUTE CHANGES. PT SLEPT T/O MOST OF NIGHT ON BIPAP. NO C/O PAIN. CALLS APPROPRIATELY VSS. BED IN LOWEST POSITION AND CALL LIGHT IN REACH.
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
[2023-11-15 16:21] VITALS: BP 163/61
[2023-11-15] MEDS ORDERED: BREO ELLIPTA 11 EAC1 INH (17:19)
[2023-11-15] MEDS ORDERED: MILK OF MAGNESIA PO (17:27)
[2023-11-15] MEDS ORDERED: MIRALAX17 GM PO (17:28)
--- NOTE | 2023-11-15 17:55 | NUR ---
SUMMARY- PT ON BIPAP A FEW TIMES INTERMITTENTLY TODAY FOR SOB. PT ON 2 L NC CONTINUOUSLY OTHERWISE. PT DENIES PAIN THIS SHIFT. X1 ASSIST TO RECLINER. AAOX2-3.
[2023-11-15 19:46] VITALS: BP 171/62
[2023-11-15 21:40] VITALS: BP 147/55
[2023-11-16 03:47] VITALS: BP 157/76
--- NOTE | 2023-11-16 05:22 | NUR ---
SHIFT SUMMARY PT A&OX2-3. PT C/O PAIN IN LEFT ARM AND MEDICATED PER EMAR WITH GOOD EFFECT. PT USED BiPAP FOR SLEEP BUT REMOVED MASK AT APPROXIMATELY 0230. DECLINED TO HAVE MASK BACK ON SO PT WAS PLACE ON NC AT 3L FOR REST OF NIGHT. NO ACUTE CHANGES. [place]. ABLE TO MAKE NEEDS KNOWN. BED IN LOWEST POSITION AND CALL LIGHT IN REACH.
[2023-11-16 05:26] LABS: BASOPHILS ABSOLUTE AUTO 0.01 K/mm3 (0.00-0.23); BASOPHILS PERCENT AUTO 0 % (0-2); EOSINOPHILS PERCENT AUTO 0 % (0-6); Hemoglobin 12.5 g/dL (11.5-16.0); IMMATURE GRAN ABSOLUTE AUTO 0.14 K/mm3 (0.00-0.10); IMMATURE GRAN PERCENT AUTO 1 % (0-1); LYMPHOCYTES ABSOLUTE AUTO 0.44 K/mm3 (0.84-5.20); LYMPHOCYTES PERCENT AUTO 4 % (21-46); MONOCYTES ABSOLUTE AUTO 0.19 K/mm3 (0.16-1.47); MONOCYTES PERCENT AUTO 2 % (4-13); Mean Corpuscular HGB 29.8 pg (26.0-34.0); Mean Corpuscular HGB Conc 32.1 g/dL (31.5-36.5); Mean Corpuscular Volume 93 fL (80-100); Mean Platelet Volume 9.9 fL (9.1-12.4); NEUTROPHILS ABSOLUTE AUTO 10.38 K/mm3 (1.96-9.15); NEUTROPHILS PERCENT AUTO 93 % (41-73); Platelet Count 219 K/mm3 (150-400); RDW Coefficient Variation 12.6 % (11.7-14.2); RDW Standard Deviation 42.7 fL (35.1-46.3); White Blood Cell Count 11.16 K/mm3 (4.00-11.30)
[2023-11-16 05:47] LABS: Albumin, Blood 3.2 g/dL (3.4-5.0); Albumin/Globulin Ratio 0.7 (0.8-1.8); Bilirubin, Total 0.3 mg/dL (0.1-1.0); Bun/Creatinine Ratio 38.9 (12.0-20.0); Calcium, Blood 8.5 mg/dL (8.5-10.1); Creatinine, Blood 1.26 mg/dL (0.40-1.00); Globulin, Blood 4.5 g/dL (2.2-4.0); Magnesium, Blood 2.4 mg/dL (1.6-2.4); Potassium, Blood 4.4 mmol/L (3.5-5.5); Total Protein, Blood 7.7 g/dL (6.4-8.2)
[2023-11-16 07:34] VITALS: BP 161/77
--- NOTE | 2023-11-16 14:35 | NUR ---
Spiritual care visit conducted. Patient is lying in bed and has Cpap on. She tells me about her pains in her neck that she has already mentioned to her physician (according to her) and then she tells me that a doctor (she does not know which one) told that her scan revealed that she had some sort of mass in her lung. She talks about her fears about cancer and not only in her lungs but other parts of her body also. She asks if we could pray about it. I gladly provide prayer and therapeutic listening. Patient voices her appreciation for the visit and blesses me for coming. I provide a blessing as well.
[2023-11-16 17:35] VITALS: BP 169/71
--- NOTE | 2023-11-16 18:30 | NUR ---
pt worked with therapy and is able to ambulate around room with assist, she is up to chair and purwick removed so she can use the toilet, has needed bipap several times today, no further changes this shift. call light in reach.
[2023-11-16 19:31] VITALS: BP 167/70
[2023-11-17 02:54] VITALS: BP 168/71
[2023-11-17 05:19] LABS: BASOPHILS ABSOLUTE AUTO 0.02 K/mm3 (0.00-0.23); BASOPHILS PERCENT AUTO 0 % (0-2); EOSINOPHILS PERCENT AUTO 0 % (0-6); Hematocrit 40.2 % (33.0-51.0); Hemoglobin 12.9 g/dL (11.5-16.0); IMMATURE GRAN ABSOLUTE AUTO 0.28 K/mm3 (0.00-0.10); IMMATURE GRAN PERCENT AUTO 3 % (0-1); LYMPHOCYTES ABSOLUTE AUTO 0.39 K/mm3 (0.84-5.20); LYMPHOCYTES PERCENT AUTO 4 % (21-46); MONOCYTES ABSOLUTE AUTO 0.21 K/mm3 (0.16-1.47); MONOCYTES PERCENT AUTO 2 % (4-13); Mean Corpuscular HGB 29.9 pg (26.0-34.0); Mean Corpuscular HGB Conc 32.1 g/dL (31.5-36.5); Mean Corpuscular Volume 93 fL (80-100); Mean Platelet Volume 9.8 fL (9.1-12.4); NEUTROPHILS ABSOLUTE AUTO 8.64 K/mm3 (1.96-9.15); NEUTROPHILS PERCENT AUTO 91 % (41-73); NRBC ABSOLUTE 0.02 K/mm3 (0.00-0.02); NRBC Auto 0.2 /100 WBC (0.0-0.2); Platelet Count 201 K/mm3 (150-400); RDW Coefficient Variation 12.3 % (11.7-14.2); RDW Standard Deviation 42.3 fL (35.1-46.3); Red Blood Cell Count 4.32 M/mm3 (3.80-5.20); White Blood Cell Count 9.54 K/mm3 (4.00-11.30)
[2023-11-17 05:38] LABS: Albumin, Blood 3.2 g/dL (3.4-5.0); Albumin/Globulin Ratio 0.7 (0.8-1.8); Bilirubin, Total 0.4 mg/dL (0.1-1.0); Bun/Creatinine Ratio 41.7 (12.0-20.0); Calcium, Blood 8.5 mg/dL (8.5-10.1); Creatinine, Blood 1.2 mg/dL (0.40-1.00); Globulin, Blood 4.3 g/dL (2.2-4.0); Potassium, Blood 4.1 mmol/L (3.5-5.5); Total Protein, Blood 7.5 g/dL (6.4-8.2)
--- NOTE | 2023-11-17 05:42 | NUR ---
SHIFT SUMMERY, PT RESTING IN BED, PT TAKING OFF O2 AND CPAP DURRING THE NOC. PT CAUSING O2 SAT MONITOR TO BEEP FREQUENTLY. PT PULLING OFF FINGER PROBE. PT SOME WHAT CONFUSED. CALL LIGHT IN REACH.
[2023-11-17 07:38] VITALS: BP 143/54
[2023-11-17 16:27] VITALS: BP 149/64
--- NOTE | 2023-11-17 17:51 | NUR ---
SHIFT SUMMARY PATIENT WITH BASELINE SHORTNESS OF BREATH, SOME PAIN IN THROAT AND WITH COUGHING. MEDICATED PER EMAR. PATIENT UP TO CHAIR AFTER LUNCH. BED IN LOW POSITION, CALL LIGHT IN REACH. PATIENT ABLE TO MAKE NEEDS KNOWN.
[2023-11-17 19:27] VITALS: BP 153/67
[2023-11-18 01:15] LABS: Adenovirus Not Detected (NOT DETECT); Bordetella pertussis Not Detected (NOT DETECT); Chlamydophila pneumoniae Not Detected (NOT DETECT); Coronavirus 229E Not Detected (NOT DETECT); Coronavirus HKU1 Not Detected (NOT DETECT); Coronavirus NL63 Not Detected (NOT DETECT); Coronavirus OC43 Not Detected (NOT DETECT); Human Metapneumovirus Not Detected (NOT DETECT); Human Rhinovirus/Enterovirus Not Detected (NOT DETECT); Influenza A/2009-H1 Not Detected (NOT DETECT); Influenza A/H1 Not Detected (NOT DETECT); Influenza A/H3 Not Detected (NOT DETECT); Influenza B Not Detected (NOT DETECT); Mycoplasma pneumoniae Not Detected (NOT DETECT); Parainfluenza Virus 1 Not Detected (NOT DETECT); Parainfluenza Virus 2 Not Detected (NOT DETECT); Parainfluenza Virus 3 Not Detected (NOT DETECT); Parainfluenza Virus 4 Not Detected (NOT DETECT); Respiratory Syncytial Virus Not Detected (NOT DETECT); SARS-Cov-2 (COVID-19), BioFire Not Detected (NOT DETECT)
--- NOTE | 2023-11-18 01:29 | NUR ---
SHIFT SUMMERY. PT RESTING IN BED AT THIS TIME. RESPITORY PANNEL NASIAL SWAB SENT TO LAB. PT APPEARS TO BE SLEEPING COMFORTABLY, CALL LIGHT IN REACH.
[2023-11-18 04:42] VITALS: BP 138/98
[2023-11-18 05:46] LABS: BASOPHILS ABSOLUTE AUTO 0.04 K/mm3 (0.00-0.23); BASOPHILS PERCENT AUTO 0 % (0-2); EOSINOPHILS PERCENT AUTO 0 % (0-6); Hematocrit 40.4 % (33.0-51.0); Hemoglobin 13.1 g/dL (11.5-16.0); IMMATURE GRAN ABSOLUTE AUTO 0.35 K/mm3 (0.00-0.10); IMMATURE GRAN PERCENT AUTO 3 % (0-1); LYMPHOCYTES PERCENT AUTO 4 % (21-46); MONOCYTES PERCENT AUTO 5 % (4-13); Mean Corpuscular HGB 30.1 pg (26.0-34.0); Mean Corpuscular HGB Conc 32.4 g/dL (31.5-36.5); Mean Corpuscular Volume 93 fL (80-100); Mean Platelet Volume 9.7 fL (9.1-12.4); NEUTROPHILS ABSOLUTE AUTO 9.76 K/mm3 (1.96-9.15); NEUTROPHILS PERCENT AUTO 87 % (41-73); NRBC ABSOLUTE 0.02 K/mm3 (0.00-0.02); NRBC Auto 0.2 /100 WBC (0.0-0.2); Platelet Count 216 K/mm3 (150-400); RDW Coefficient Variation 12.1 % (11.7-14.2); RDW Standard Deviation 42.2 fL (35.1-46.3); Red Blood Cell Count 4.35 M/mm3 (3.80-5.20); White Blood Cell Count 11.25 K/mm3 (4.00-11.30)
[2023-11-18 06:21] LABS: Albumin, Blood 3.1 g/dL (3.4-5.0); Albumin/Globulin Ratio 0.8 (0.8-1.8); Bilirubin, Total 0.3 mg/dL (0.1-1.0); Bun/Creatinine Ratio 43.5 (12.0-20.0); Calcium, Blood 8.3 mg/dL (8.5-10.1); Creatinine, Blood 1.24 mg/dL (0.40-1.00); Potassium, Blood 3.9 mmol/L (3.5-5.5); Total Protein, Blood 7.1 g/dL (6.4-8.2)
[2023-11-18 07:27] VITALS: BP 149/66
[2023-11-18 15:47] VITALS: BP 143/61
--- NOTE | 2023-11-18 18:54 | NUR ---
SHIFT SUMMARY: PATIENT WITH LABORED WOB AND WHEEZING ALL DAY. O2 @ 3 L/MIN NC (BASELINE), BIPAP WHEN SLEEPING, AND CONT OXIMETRY. NO EVENTS ON TELE, SINUS DEANDRA 55-58. A&O X 2, SEVERE HEARING LOSS, AND SOME CONFUSION. C/O PAIN IN UPPER BACK FROM COUGHING; MEDICATED WITH OXYCODONE AND CODEINE COUGH SYRUP WITH GOOD EFFECT. GETTING UP TO BR WITH SBA, CONTINENT.
[2023-11-18 20:12] VITALS: BP 154/62
[2023-11-19 04:39] VITALS: BP 181/75
[2023-11-19 05:50] LABS: BASOPHILS ABSOLUTE AUTO 0.04 K/mm3 (0.00-0.23); BASOPHILS PERCENT AUTO 0 % (0-2); EOSINOPHILS ABSOLUTE AUTO 0.01 K/mm3 (0.00-0.68); EOSINOPHILS PERCENT AUTO 0 % (0-6); Hematocrit 39.8 % (33.0-51.0); Hemoglobin 12.9 g/dL (11.5-16.0); IMMATURE GRAN PERCENT AUTO 3 % (0-1); LYMPHOCYTES ABSOLUTE AUTO 0.51 K/mm3 (0.84-5.20); LYMPHOCYTES PERCENT AUTO 4 % (21-46); MONOCYTES ABSOLUTE AUTO 0.69 K/mm3 (0.16-1.47); MONOCYTES PERCENT AUTO 5 % (4-13); Mean Corpuscular HGB 30.1 pg (26.0-34.0); Mean Corpuscular HGB Conc 32.4 g/dL (31.5-36.5); Mean Corpuscular Volume 93 fL (80-100); Mean Platelet Volume 9.7 fL (9.1-12.4); NEUTROPHILS ABSOLUTE AUTO 11.16 K/mm3 (1.96-9.15); NEUTROPHILS PERCENT AUTO 87 % (41-73); NRBC ABSOLUTE 0.03 K/mm3 (0.00-0.02); NRBC Auto 0.2 /100 WBC (0.0-0.2); Platelet Count 198 K/mm3 (150-400); RDW Coefficient Variation 12.3 % (11.7-14.2); RDW Standard Deviation 41.7 fL (35.1-46.3); Red Blood Cell Count 4.29 M/mm3 (3.80-5.20); White Blood Cell Count 12.81 K/mm3 (4.00-11.30)
[2023-11-19 06:27] LABS: Bun/Creatinine Ratio 43.5 (12.0-20.0); Calcium, Blood 8.5 mg/dL (8.5-10.1); Creatinine, Blood 1.31 mg/dL (0.40-1.00); Potassium, Blood 4.3 mmol/L (3.5-5.5)
--- NOTE | 2023-11-19 07:48 | NUR ---
SHIFT MAXIMINO, PT RESTING IN BED, DURING NOC PTS SETTING OFF CONTINUS PULSE OX O2 SATS DROPPED TO 85% TURNED UP O2 SAT PT UP AND WOKE HER UP BUT STILL NOT ABLE TO GET SATS TO 90%. CALLED RT TO CHECK ON PT. RT PLACED PT ON BIPAP WITH O2 BLED IN. PT SONTINUES TO SLEEP CALL LIGHT IN REACH AND SATS ARE WNL.
[2023-11-19 08:28] VITALS: BP 167/69
[2023-11-19 16:35] VITALS: BP 150/99
--- NOTE | 2023-11-19 18:28 | NUR ---
SHIFT SUMMARY: No acute events/changes this shift. Denies pain, VSS. Up to bathroom independently. Increase tachypnea with ambulation. Continuous pulse ox with 3L NC in place. Pain and safety maintained.
[2023-11-19 19:35] VITALS: BP 134/54
--- NOTE | 2023-11-19 19:57 | NUR ---
IS GIVEN TO PT, TEACHING DONE TO THE BEST OF HER UNDERSTANDING, PT IS CURRENTLY TRYING THE IS
--- NOTE | 2023-11-20 03:52 | NUR ---
AGREE WITH ASSESSMENT OF KATERYNA CH RN. WILL TAKE OVER FULL CARE OF PT AT THIS TIME. PT CURRENTLY LYING IN BED, EYES CLOSED, APPEARS TO BE RESTING. BREATHING IS EVEN, UNLABORED. NO APPARENT SIGNS OF DISTRESS. CALL LIGHT IS IN REACH.
--- NOTE | 2023-11-20 03:53 | NUR ---
AAO X 2-3, HX OF [place]. REPORTS SOB WITH EXERTION. ON 3L NC AT 94%. TELE SB IN THE 50'S.
[2023-11-20 05:37] VITALS: BP 149/65
--- NOTE | 2023-11-20 06:12 | NUR ---
PT LYING IN BED, EYES CLOSED, APPEARS TO BE RESTING. BREATHING IS EVEN, UNLABORED. NO APPARENT SIGNS OF DISTRESS. CALL LIGHT IS IN REACH. NO OTHER CHANGES THIS SHIFT.
[2023-11-20 06:14] LABS: BASOPHILS ABSOLUTE AUTO 0.03 K/mm3 (0.00-0.23); BASOPHILS PERCENT AUTO 0 % (0-2); EOSINOPHILS PERCENT AUTO 0 % (0-6); Hematocrit 40.3 % (33.0-51.0); Hemoglobin 13.4 g/dL (11.5-16.0); IMMATURE GRAN ABSOLUTE AUTO 0.46 K/mm3 (0.00-0.10); IMMATURE GRAN PERCENT AUTO 4 % (0-1); LYMPHOCYTES ABSOLUTE AUTO 0.43 K/mm3 (0.84-5.20); LYMPHOCYTES PERCENT AUTO 4 % (21-46); MONOCYTES ABSOLUTE AUTO 0.13 K/mm3 (0.16-1.47); MONOCYTES PERCENT AUTO 1 % (4-13); Mean Corpuscular HGB 30.5 pg (26.0-34.0); Mean Corpuscular HGB Conc 33.3 g/dL (31.5-36.5); Mean Corpuscular Volume 92 fL (80-100); Mean Platelet Volume 10.1 fL (9.1-12.4); NEUTROPHILS ABSOLUTE AUTO 11.08 K/mm3 (1.96-9.15); NEUTROPHILS PERCENT AUTO 91 % (41-73); Platelet Count 174 K/mm3 (150-400); RDW Standard Deviation 40.5 fL (35.1-46.3); Red Blood Cell Count 4.39 M/mm3 (3.80-5.20); White Blood Cell Count 12.13 K/mm3 (4.00-11.30)
[2023-11-20 06:40] LABS: Anion Gap 7 mmol/L (6-16); Blood Urea Nitrogen 50 mg/dL (8-24); Bun/Creatinine Ratio 43.1 (12.0-20.0); CO2, Blood 30 mmol/L (21-32); Calcium, Blood 8.6 mg/dL (8.5-10.1); Chloride, Blood 99 mmol/L (98-108); Creatinine, Blood 1.16 mg/dL (0.40-1.00); Glomerular Filtration Rate 50 (60-); Glucose, Blood 178 mg/dL (70-99); Phosphorus, Blood 3.6 mg/dL (2.5-4.9); Potassium, Blood 4.7 mmol/L (3.5-5.5); Sodium, Blood 136 mmol/L (136-145)
[2023-11-20 07:49] VITALS: BP 175/63
[2023-11-20 11:40] VITALS: BP 138/46
[2023-11-20 15:20] VITALS: BP 153/57
--- NOTE | 2023-11-20 16:59 | NUR ---
SHIFT SUMMARY PT AOX2-3, CONFUSED AT TIMES. MEDICATED FOR PAIN PER THE EMAR. AT THE START OF THE SHIFT, SHE WAS C/O CP. NITRO ADMINISTERED PER THE EMAR. EKG OBTAINED AND TROP LAB ORDERED. PER DR. LIZARRAGA, [place]. NO COMPLAINTS OF SIMILAR SYMPTOMS SINCE. PT DOES CALL AND MAKES HER NEEDS KNOWN. SHE IS A 1 ASSIST WITH THE FWW TO THE BATHROOM. NEW IV PLACED THIS SHIFT. PT IS CURRENTLY RESTING COMFORTABLY IN BED. CALL LIGHT WITHIN REACH, BED IN THE LOWEST POSITION. WILL REPORT TO ONCOMING NURSE.
[2023-11-20 19:38] VITALS: BP 185/71
--- NOTE | 2023-11-21 00:14 | NUR ---
PT A&OX3 1P ASSIST USES BSC WEARS ATTEND URGENCY/FREQUENCY.ON TELE PT SB 50S. PT ON CONITNOUS POX WITH 3LNC. PT FORGETS LIMITATIONS PRESSES CALL GUTIÉRREZ AND YELLS OUT FOR STAFF TO EXPRESS NEEDS. SHORTNESS OF BREATH W EXERTION RECOVER WITH REST. PT REPORTED CHEST WHILE COUGHING POINTING TO RIGHT RIBCAGE TELE SHOWED SB52S RT GAVE BREATHING TREATMENT PAIN RESOLVED WITH DECREASED COUGHING. CALL GUTIÉRREZ WITHIN REACH BED LOWERED WILL CONTINUE TO MONITOR.
[2023-11-21 04:42] VITALS: BP 209/85
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
[2023-11-21 07:53] VITALS: BP 148/48
[2023-11-21 16:08] VITALS: BP 147/57
--- NOTE | 2023-11-21 17:23 | NUR ---
NO ACUTE CHANGES PT IS AOX3 WITH CONFUSION. PT CAN MAKE NEEDS KNOWN, BUT AT TIMES IS IMPULSIVE AND WILL GO THE RESTROOM ON HER OWN. BED ALARM IS IN PLACE PT NEEDS STANDBY. CALL LIGHT IS WITHIN REACH WILL CONTINUE TO MONITOR. CURRENTLY ON 3L O2 AND MAINTIAING O2 SAT IN 90s. WILL CONTINUE TO MONITOR.
[2023-11-21 20:03] VITALS: BP 143/55
--- NOTE | 2023-11-22 03:31 | NUR ---
PT IS A&OX3 REDIRECTABLE BUT IMPULSIVE TO VOID STANDBY ASSIST WITH FWW FORGETS LIMITATIONS, PT LS ARE AUDIBLE WHEEZE COARSE ON RIGHT 3LNC CPAP @HS PT POSSIBLE DCD HOME TODAY, PT MAKES NNEDS KNOWN PUSHES CALL LIGHT AND YELLS OUT FOR HELP BED ALARM ON, BED LOWERED FALLS PRECAUTIONS AND EDUCATION PROVIDED, CALL LIGHT WITHIN REACH WILL CONTINUE TO MONITOR.
[2023-11-22 03:43] VITALS: BP 160/60
--- NOTE | 2023-11-22 05:45 | NUR ---
PT UP TO BRP WITH A WALKER/SBA. PT HAS AUDIBLE WHEEZES WITH EXERTION. PT BACK TO BED, ABLE TO GET HERSELF INTO BED AND SWING HER LEGS UP INDEPENDENTLY. PT PLACED IN TRIPOD POSITION, AND RESPIRATORY THERAPY CALLED. SATS WNL ON CONTINUOUS BIOX.
--- NOTE | 2023-11-22 06:05 | NUR ---
PT REPORTS SHE IS "FEELING BETTER" AFTER BREATHING TREATMENT AND REQUESTING HER BED TO BE LOWERED, SO SHE CAN TAKE "A NAP" BECAUSE SHE "IS TIRED." BED ALARM PLACED ON FOR PT SAFETY AND INSTRUCTED PT TO CALL FOR ASSIST OUT OF BED.
[2023-11-22 07:08] VITALS: BP 156/55
[2023-11-22] MEDS ORDERED: ELIQUIS5 M2 PO (13:22)
[2023-11-22] MEDS ORDERED: FAMO20 PO (13:23)
[2023-11-22] MEDS ORDERED: GUAI600T33 PO (13:23)
[2023-11-22] MEDS ORDERED: BANATROL PLUS1 EAC1 PO (13:23)
[2023-11-22] MEDS ORDERED: METO25ER PO (13:24)
[2023-11-22] MEDS ORDERED: PRED20 PO (13:26)
[2023-11-22] MEDS ORDERED: TIOT18 INH (13:28)
--- NOTE | 2023-11-22 16:22 | NUR ---
DISCHARGE Patient medically ready for discharge. Home O2 evaluation done by RT. Reviewed discharge paper work with patient. Pt left via wheelchair transport at 1400. DC home with homehealth.
== END 2023-11-22 13:40 | disposition home health service (06) | DRG 193 ==
LOC: ER 05:57 → MEDS 08:36 → PCU 08:36 → ERHOLD 08:36 → PCU 17:04 → MEDS 11-14 18:29 → ENPENDDIS 11-22 11:14 → MEDS 11-22 13:40
PROVIDERS: Internal Medicine; Student in an Organized Health Care Education/Training Program; ADMIT Hospitalist
PROC: 5A09357 Assistance with Respiratory Ventilation, Less than 24 Consecutive Hours, Continuous Positive Airway Pressure (ICD-10-PCS; principal; 2023-11-13)
DX: J18.9 Pneumonia, unspecified organism (principal); J96.21 Acute and chronic respiratory failure with hypoxia; I13.0 Hypertensive heart and chronic kidney disease with heart failure and stage 1 through stage 4 chronic kidney disease, or unspecified chronic kidney disease; I50.32 Chronic diastolic (congestive) heart failure; J44.1 Chronic obstructive pulmonary disease with (acute) exacerbation; J44.0 Chronic obstructive pulmonary disease with (acute) lower respiratory infection; Z66 Do not resuscitate; R04.2 Hemoptysis; N39.0 Urinary tract infection, site not specified; I48.91 Unspecified atrial fibrillation; M19.90 Unspecified osteoarthritis, unspecified site; N18.30 Chronic kidney disease, stage 3 unspecified; K21.9 Gastro-esophageal reflux disease without esophagitis; G30.9 Alzheimer's disease, unspecified; B96.20 Unspecified Escherichia coli [E. coli] as the cause of diseases classified elsewhere; F02.80 Dementia in other diseases classified elsewhere, unspecified severity, without behavioral disturbance, psychotic disturbance, mood disturbance, and anxiety; F32.A Depression, unspecified; Z86.718 Personal history of other venous thrombosis and embolism; Z79.899 Other long term (current) drug therapy; Z79.51 Long term (current) use of inhaled steroids; Z79.01 Long term (current) use of anticoagulants; Z87.891 Personal history of nicotine dependence; Z11.52 Encounter for screening for COVID-19
CPT/HCPCS: 0202U; 36415; 71045; 71275; 80048; 80053; 80069; 80162; 81001; 82803; 83605; 83735; 84145; 84484; 85025; 85379; 87040; 87070; 87077; 87086; 87186; 87205; 87804; 87807; 92526; 92610; 93005; 93010; 94640; 94644; 94645; 94660; 94664; 94760; 94761; 94762; 96361; 96365; 96375; 97110; 97116; 97162; 97165; 97530; 97535; 99285-25; A9270; J0456; J0696; J1160; J1940; J2930; J7030; J7050; J7512; Q9967; U0002

== ENCOUNTER 2023-12-02 13:37 | Emergency (ER) | payer MEDICARE, OTHER ==
[~2023-12-02] VITALS: Ht 160 cm; Wt 88.0 kg
[~2023-12-02 13:37] MED LIST changes: +ACET500 PO; +ALEN70 PO; +BANATROL PLUS1 EAC1 PO; +BISA10S PR; +FAMO20 PO; +FLONASE ALLERG9.9 M2; +GUAI600T33 PO; +INCRUSE ELLIPTA INH; +LEVSOD25 PO; +LIDO700A20 TOP; +MILK OF MAGNESIA PO; +MIRALAX17 GM PO; +MIRT15ST PO; +MULVITA PO; +PRED20 PO; +TIOT18 INH; +Ventolin/Prove6.7 GM INH
[2023-12-02 14:21] LABS: BASOPHILS ABSOLUTE AUTO 0.02 K/mm3 (0.00-0.23); BASOPHILS PERCENT AUTO 0 % (0-2); EOSINOPHILS ABSOLUTE AUTO 0.05 K/mm3 (0.00-0.68); EOSINOPHILS PERCENT AUTO 0 % (0-6); Hematocrit 42.9 % (33.0-51.0); Hemoglobin 13.2 g/dL (11.5-16.0); IMMATURE GRAN PERCENT AUTO 1 % (0-1); LYMPHOCYTES PERCENT AUTO 13 % (21-46); MONOCYTES ABSOLUTE AUTO 0.61 K/mm3 (0.16-1.47); MONOCYTES PERCENT AUTO 6 % (4-13); Mean Corpuscular HGB 29.5 pg (26.0-34.0); Mean Corpuscular HGB Conc 30.8 g/dL (31.5-36.5); Mean Corpuscular Volume 96 fL (80-100); Mean Platelet Volume 9.2 fL (9.1-12.4); NEUTROPHILS ABSOLUTE AUTO 8.99 K/mm3 (1.96-9.15); NEUTROPHILS PERCENT AUTO 81 % (41-73); Platelet Count 105 K/mm3 (150-400); RDW Coefficient Variation 12.8 % (11.7-14.2); RDW Standard Deviation 45.3 fL (35.1-46.3); Red Blood Cell Count 4.47 M/mm3 (3.80-5.20); White Blood Cell Count 11.17 K/mm3 (4.00-11.30)
[2023-12-02 14:56] LABS: Albumin, Blood 3.3 g/dL (3.4-5.0); Albumin/Globulin Ratio 0.9 (0.8-1.8); Bilirubin, Total 0.5 mg/dL (0.1-1.0); Bun/Creatinine Ratio 28.9 (12.0-20.0); Calcium, Blood 8.8 mg/dL (8.5-10.1); Creatinine, Blood 1.21 mg/dL (0.40-1.00); Globulin, Blood 3.8 g/dL (2.2-4.0); Potassium, Blood 4.1 mmol/L (3.5-5.5); Total Protein, Blood 7.1 g/dL (6.4-8.2)
[2023-12-02 16:40] VITALS: BP 142/58
== END 2023-12-02 16:41 | disposition home or self-care (01) ==
LOC: ER 13:37
PROVIDERS: Emergency Medicine
DX: T18.198A Other foreign object in esophagus causing other injury, initial encounter (principal); W44.8XXA Other foreign body entering into or through a natural orifice, initial encounter; I13.0 Hypertensive heart and chronic kidney disease with heart failure and stage 1 through stage 4 chronic kidney disease, or unspecified chronic kidney disease; N18.30 Chronic kidney disease, stage 3 unspecified; I50.40 Unspecified combined systolic (congestive) and diastolic (congestive) heart failure; G30.9 Alzheimer's disease, unspecified; F02.818 Dementia in other diseases classified elsewhere, unspecified severity, with other behavioral disturbance; J44.9 Chronic obstructive pulmonary disease, unspecified; I48.91 Unspecified atrial fibrillation; K21.9 Gastro-esophageal reflux disease without esophagitis; Z91.013 Allergy to seafood; Z79.01 Long term (current) use of anticoagulants; Z79.899 Other long term (current) drug therapy; Z79.890 Hormone replacement therapy; Z87.891 Personal history of nicotine dependence
CPT/HCPCS: 71045; 80053; 84484; 85025; 93005; 93010; 94640; 94664; 99284-25; A9270

== ENCOUNTER 2023-12-04 17:24 | Emergency (ER) | payer MEDICARE, OTHER ==
[~2023-12-04] VITALS: Ht 160 cm; Wt 88.0 kg
[2023-12-04] MEDS ORDERED: POTA10T PO (18:02)
[2023-12-04] MEDS ORDERED: MIRT15 PO (18:03)
[2023-12-04] MEDS ORDERED: MULVITA PO (18:03)
[2023-12-04] MEDS ORDERED: MIRALAX17 GM PO (18:03)
[2023-12-04] MEDS ORDERED: Milk Of Ma400 MG/5 M PO (18:05)
[2023-12-04] MEDS ORDERED: METO25 PO (18:06)
[2023-12-04] MEDS ORDERED: LIDO700A20 TOP (18:06)
[2023-12-04] MEDS ORDERED: FURO20 PO (18:07)
[2023-12-04] MEDS ORDERED: GUAI600T33 PO (18:07)
[2023-12-04] MEDS ORDERED: FEROSUL325 M1 PO (18:07)
[2023-12-04] MEDS ORDERED: ESCI10 PO (18:07)
[2023-12-04] MEDS ORDERED: DIGOX125 MC1 PO (18:08)
[2023-12-04] MEDS ORDERED: BREO ELLIPTA 11 EAC1 (18:08)
[2023-12-04] MEDS ORDERED: BISA10S (18:08)
[2023-12-04] MEDS ORDERED: ACET500 PO (18:09)
[2023-12-04] MEDS ORDERED: ALEN70 PO (18:09)
[2023-12-04] MEDS ORDERED: PACERONE100 M1 PO (18:09)
[2023-12-04 18:18] LABS: BASOPHILS ABSOLUTE AUTO 0.01 K/mm3 (0.00-0.23); BASOPHILS PERCENT AUTO 0 % (0-2); EOSINOPHILS ABSOLUTE AUTO 0.16 K/mm3 (0.00-0.68); EOSINOPHILS PERCENT AUTO 2 % (0-6); Hematocrit 42.3 % (33.0-51.0); IMMATURE GRAN ABSOLUTE AUTO 0.04 K/mm3 (0.00-0.10); IMMATURE GRAN PERCENT AUTO 0 % (0-1); LYMPHOCYTES ABSOLUTE AUTO 1.36 K/mm3 (0.84-5.20); LYMPHOCYTES PERCENT AUTO 14 % (21-46); MONOCYTES ABSOLUTE AUTO 0.72 K/mm3 (0.16-1.47); MONOCYTES PERCENT AUTO 7 % (4-13); Mean Corpuscular HGB Conc 30.7 g/dL (31.5-36.5); Mean Corpuscular Volume 98 fL (80-100); Mean Platelet Volume 9.6 fL (9.1-12.4); NEUTROPHILS ABSOLUTE AUTO 7.38 K/mm3 (1.96-9.15); NEUTROPHILS PERCENT AUTO 76 % (41-73); Platelet Count 96 K/mm3 (150-400); RDW Standard Deviation 46.2 fL (35.1-46.3); Red Blood Cell Count 4.34 M/mm3 (3.80-5.20); White Blood Cell Count 9.67 K/mm3 (4.00-11.30)
[2023-12-04 18:42] LABS: Albumin/Globulin Ratio 0.9 (0.8-1.8); Bilirubin, Total 0.4 mg/dL (0.1-1.0); Bun/Creatinine Ratio 23.9 (12.0-20.0); Calcium, Blood 8.4 mg/dL (8.5-10.1); Creatinine, Blood 1.38 mg/dL (0.40-1.00); Globulin, Blood 3.5 g/dL (2.2-4.0); Total Protein, Blood 6.5 g/dL (6.4-8.2)
[2023-12-04 18:54] LABS: Influenza A, PCR NEGATIVE (NEGATIVE); Influenza B, PCR NEGATIVE (NEGATIVE); Resp Syncytial Virus, PCR NEGATIVE (NEGATIVE); SARS-Cov-2 (COVID-19) PCR, MMC NEGATIVE (NEGATIVE)
[2023-12-04 19:30] VITALS: BP 118/75
== END 2023-12-04 20:13 | disposition home or self-care (01) ==
LOC: ER 17:24
PROVIDERS: Emergency Medicine
DX: J06.9 Acute upper respiratory infection, unspecified (principal); R06.02 Shortness of breath; Z87.891 Personal history of nicotine dependence; I13.0 Hypertensive heart and chronic kidney disease with heart failure and stage 1 through stage 4 chronic kidney disease, or unspecified chronic kidney disease; I50.40 Unspecified combined systolic (congestive) and diastolic (congestive) heart failure; N18.30 Chronic kidney disease, stage 3 unspecified; J44.9 Chronic obstructive pulmonary disease, unspecified; I48.91 Unspecified atrial fibrillation; K21.9 Gastro-esophageal reflux disease without esophagitis; M19.90 Unspecified osteoarthritis, unspecified site; G30.9 Alzheimer's disease, unspecified; F02.80 Dementia in other diseases classified elsewhere, unspecified severity, without behavioral disturbance, psychotic disturbance, mood disturbance, and anxiety; Z79.01 Long term (current) use of anticoagulants; Z79.899 Other long term (current) drug therapy; Z79.51 Long term (current) use of inhaled steroids; Z91.013 Allergy to seafood
CPT/HCPCS: 0241U; 71045; 80053; 83605; 83880; 84145; 84484; 85025; 93005; 93010; 99285-25